=== PATIENT | female | born 1955 | race Caucasian/White ===

== ENCOUNTER 2018-02-28 08:43 | Emergency (ER) | payer MEDICARE, BC ==
[2018-02-28 08:59] VITALS: BP 134/78
--- NOTE | 2018-02-28 09:28 | EDM.PDOC ---
ED HPI GENERAL MEDICAL PROBLEM - General Chief Complaint: General Stated Complaint: FALL VIA NORTH Time Seen by Provider: 02/28/18 09:05 Source of Information: Reports: Patient, EMS History Limitations: Reports: No Limitations - History of Present Illness INITIAL COMMENTS - FREE TEXT/NARRATIVE: 63-year-old female who has become very weak over the past 72 hours, unable to even get in and out of bed. This morning she was unable to support her weight when she tried to roll out of bed and fell onto the floor. She was lying face down on the floor for 20 minutes when she called the ambulance. They found her diaphoretic but otherwise stable, afebrile, blood pressure was normal. In route the diaphoresis resolved. There was no outward evidence of any trauma or bruising. The patient has had a cold for the last couple of weeks, thought she was running some fevers on Wednesday but Wednesday was shopping without much difficulty. This has never happened to her before. Her symptoms are only weakness, she has no paresthesias, denies a headache, denies nausea or vomiting or shortness of breath. Her appetite is decreased over the last 2 days but she has no abdominal symptoms or nausea or vomiting. No dysuria. I asked her if she felt she could walk now if she tried, and she said "maybe with help". Onset: Gradual (Over the past several days) Severity: Moderate Associated Symptoms: Reports: Diaphoresis, Fever/Chills (Had a fever on Wednesday ), Loss of Appetite, Malaise, Weakness. 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: Musculoskeletal History: Reports: Fracture Other Musculoskeletal History: Left Hip Pain and Right Knee - Infectious Disease History Infectious Disease History: Reports: Chicken Pox - Past Surgical History GI Surgical History: Reports: Cholecystectomy Female Surgical History: Reports: Section Musculoskeletal Surgical History: Reports: Hip Replacement Social & Family History - Tobacco Use Smoking Status *Q: Former Smoker Years of Tobacco use: 15 Used Tobacco, but Quit: No - Caffeine Use Caffeine Use: Reports: None - Alcohol Use Days Per Week of Alcohol Use: 2 Number of Drinks Per Day: 3 Total Drinks Per Week: 6 - Recreational Drug Use Recreational Drug Use: No ED ROS GENERAL - Review of Systems Review Of Systems: See Below Constitutional: Reports: Fever (2 days ago, none currently), Malaise, Weakness, Decreased Appetite HEENT: Reports: Rhinitis (Ongoing head cold or sinus infection) Respiratory: Denies: Shortness of Breath, Cough Cardiovascular: Denies: Chest Pain Endocrine: Reports: Fatigue (Supposedly the patient has some type of "sleeping disorder".) GI/Abdominal: Reports: No Symptoms : Reports: No Symptoms Skin: Reports: Diaphoresis. Denies: Pallor Neurological: Reports: Weakness. Denies: Headache Psychiatric: Reports: No Symptoms ED EXAM, GENERAL - Physical Exam Exam: See Below Exam Limited By: No Limitations General Appearance: Alert, No Apparent Distress Eye Exam: Bilateral Eye: EOMI, Normal Inspection Head: Atraumatic, Normocephalic Neck: Supple Respiratory/Chest: No Respiratory Distress, Rales ( faint rales in the bases bilaterally, worse on the left with decreased breath sounds) Cardiovascular: Regular Rate, Rhythm, Tachycardia (Mild tachycardia is present) GI/Abdominal: Soft, Non-Tender Extremities: Other (She has symmetric weakness of the lower extremities, only able to hold her leg up against gravity for one second). No: Pedal Edema Psychiatric: Normal Affect, Normal Mood Skin Exam: Warm, Dry, Other (There is erythema, dermatitis present in the groin and buttock area.) Course - Vital Signs Last Recorded V/S: Last Vital Signs Temp 100.0 F 02/28/18 09:52 Pulse 105 H 02/28/18 09:52 Resp 33 H 02/28/18 09:01 BP 134/78 02/28/18 09:01 Pulse Ox 96 02/28/18 09:01 - Orders/Labs/Meds Orders: Active Orders 24 hr Category Date Time Status Chest 1V Frontal [CR] Stat Exams 02/28/18 10:50 Ordered CULTURE BLOOD [BC] Urgent Lab 02/28/18 11:19 Received CULTURE BLOOD [BC] Urgent Lab 02/28/18 11:44 Received CULTURE URINE [RM] Stat Lab 02/28/18 11:43 Received UA W/MICROSCOPIC [URIN] Urgent Lab 02/28/18 09:52 Ordered Blood Culture x2 Reflex Set [OM.PC] Urgent Oth 02/28/18 11:03 Ordered Labs: Laboratory Tests 02/28/18 02/28/18 02/28/18 Range/Units 09:30 09:30 09:52 WBC 14.4 H (4.5-11.0) K/uL RBC 4.30 (3.30-5.50) M/uL Hgb 13.2 (12.0-15.0) g/dL Hct 38.8 (36.0-48.0) % MCV 90 (80-98) fL MCH 31 (27-31) pg MCHC 34 (32-36) % Plt Count 178 (150-400) K/uL Add Manual Diff Yes Neutrophils % (Manual) 71 H (36-66) % Band Neutrophils % 18 H (5-11) % Lymphocytes % (Manual) 3 L (24-44) % Monocytes % (Manual) 7 H (2-6) % Eosinophils % (Manual) 1 L (2-4) % ESR 66 H (0-25) mm/hr Sodium 128 L (140-148) mmol/L Potassium 3.2 L (3.6-5.2) mmol/L Chloride 94 L (100-108) mmol/L Carbon Dioxide 20 L (21-32) mmol/L Anion Gap 17.2 H (5.0-14.0) mmol/L BUN 10 (7-18) mg/dL Creatinine 1.1 H (0.6-1.0) mg/dL Est Cr Clr Drug Dosing 49.58 mL/min Estimated GFR (MDRD) 50 L (>60) Glucose 141 H (74-106) mg/dL Calcium 8.9 (8.5-10.1) mg/dL Total Bilirubin 0.6 (0.2-1.0) mg/dL AST 104 H (15-37) U/L ALT 62 (12-78) U/L Alkaline Phosphatase 126 H (46-116) U/L Creatine Kinase 4599 H (26-192) U/L C-Reactive Protein 41.62 H (0.0-0.3) mg/dL Total Protein 6.9 (6.4-8.2) g/dL Albumin 2.7 L (3.4-5.0) g/dL Globulin 4.2 H (2.3-3.5) g/dL Albumin/Globulin Ratio 0.6 L (1.2-2.2) Urine Color Yellow Urine Appearance Cloudy Urine pH 5.0 (4.5-8.0) Ur Specific [place] 1.025 (1.008-1.030) Urine Protein 500 H (NEGATIVE) mg/dL Urine Glucose (UA) Normal (NEGATIVE) mg/dL Urine Ketones 50 H (NEGATIVE) mg/dL Urine Occult Blood Large (NEGATIVE) Urine Nitrite Negative (NEGATIVE) Urine Bilirubin Negative (NEGATIVE) Urine Urobilinogen Normal (NORMAL) mg/dL Ur Leukocyte Esterase Negative (NEGATIVE) Urine RBC 5-10 H (0-5) Urine WBC 5-10 H (0-5) Ur Epithelial Cells Few Amorphous Sediment Many Urine Bacteria Many Urine Mucus Few Urine Other See note Meds: Medications Discontinued Medications Generic Name Dose Route Start Last Admin Trade Name Freq PRN Reason Stop Dose Admin Sodium Chloride 1,000 mls @ 500 mls/hr 02/28/18 10:03 02/28/18 10:13 Normal Saline IV 02/28/18 12:02 500 mls/hr ONETIME ONE Administration Levofloxacin/Dextrose 750 mg/ 150 mls @ 100 mls/hr 02/28/18 11:04 02/28/18 11 :51 Premix IV 02/28/18 12:33 100 mls/hr ONETIME ONE Administration Piperacillin Sod/Tazobactam 50 mls @ 100 mls/hr 02/28/18 11:04 02/28/18 11:19 Sod 3.375 gm/ Sodium Chloride IV 02/28/18 11:33 100 mls/hr ONETIME ONE Administration - Re-Assessments/Exams Free Text/Narrative Re-Assessment/Exam: 02/28/18 09:[address] without contrast will be obtained as well as a CBC, CMP, CK, sedimentation rate and CRP. A neurologic consultation may be necessary. 02/28/18 11:06 CRP is very high at 42, CK is dangerously high at 4599. White count is 14.4. Catheter UA revealed bacteria but no WBCs or RBCs. Head CT was negative, chest x -ray shows an infiltrate on the left lower lobe. Blood cultures were then obtained and I discussed her case with the hospitalist, he felt transfer because of the complicated collection of symptoms and labs would need multispecialty treatment. After blood cultures, 3.375 g of Zosyn along with 750 mg of Levaquin were given. Departure - Departure Time of Disposition: 12:03 Disposition: DC/Tfer to Acute Hospital 02 Condition: Fair Clinical Impression: Non-traumatic rhabdomyolysis Pneumonia Qualifiers: Pneumonia type: due to unspecified organism Laterality: left Lung location: lower lobe of lung Qualified Code(s): J18.1 - Lobar pneumonia, unspecified organism - Discharge Information Referrals: PCP,None [Primary Care Provider] - Forms: ED Department Discharge Care Plan Goals: Patient is transferred to [facility] for multidisciplinary care for pneumonia and rhabdomyolysis. - My Orders Last 24 Hours: My Active Orders 02/28/18 09:52 UA W/MICROSCOPIC [URIN] Urgent 02/28/18 10:50 Chest 1V Frontal [CR] Stat 02/28/18 11:03 Blood Culture x2 Reflex Set [OM.PC] Urgent 02/28/18 11:19 CULTURE BLOOD [BC] Urgent 02/28/18 11:43 CULTURE URINE [RM] Stat 02/28/18 11:44 CULTURE BLOOD [BC] Urgent - Assessment/Plan Last 24 Hours: My Active Orders 02/28/18 09:52 UA W/MICROSCOPIC [URIN] Urgent 02/28/18 10:50 Chest 1V Frontal [CR] Stat 02/28/18 11:03 Blood Culture x2 Reflex Set [OM.PC] Urgent 02/28/18 11:19 CULTURE BLOOD [BC] Urgent 02/28/18 11:43 CULTURE URINE [RM] Stat 02/28/18 11:44 CULTURE BLOOD [BC] Urgent
--- NOTE | 2018-02-28 09:48 | CT ---
Head wo Cont HISTORY: weakness TECHNIQUE: Spiral noncontrast CT scan of the brain was obtained along with high-resolution bone windo w reconstructions. FINDINGS: No acute intracranial hemorrhage or infarct is identified. There is no mass lesion, mass effect, midl ine shift, or ventricular abnormality. No abnormal extra-axial fluid collections are seen. Visualized paranasal sinuses and mastoid air cells are clear. Bone windows show no evidence for skull fracture. IMPRESSION: No acute intracranial abnormality identified. Report was called to Dr. Garcia in the emergency department at 0945 hours.
[2018-02-28] MEDS ORDERED: Sodium Chloride 0.9% 1,000 ML IV ONE (10:03)
[2018-02-28] MEDS ORDERED: Levofloxacin/Dextrose 5%-Water 750 MG in Premix Bag 1 BAG IV ONE (11:04)
[2018-02-28] MEDS ORDERED: Piperacillin/Tazobactam 3.375 GM in Sodium Chloride 0.9% 50 ML IV ONE (11:04)
--- NOTE | 2018-02-28 18:08 | CR ---
Chest 1V Frontal HISTORY: cough FINDINGS: Portable chest, 1052 hours. There are infiltrates and consolidation left lower lobe silhouetting the left heart border. This may represent pneumonia considering the given clinical history. Remainder the chest is clear. Heart size is normal. Pulmonary vasculature is not engorged. No definite pleural fluid is seen. Bony structures are osteopenic. IMPRESSION: Probable left lower lobe pneumonia. Recommend clinical correlation and follow-up.
== END 2018-02-28 12:02 ==
LOC: JP.ED 08:43
DX: J18.9 Pneumonia, unspecified organism (principal); M62.82 Rhabdomyolysis; W06.XXXA Fall from bed, initial encounter; L53.9 Erythematous condition, unspecified; L30.9 Dermatitis, unspecified; R00.0 Tachycardia, unspecified; Z88.8 Allergy status to other drugs, medicaments and biological substances; Z88.2 Allergy status to sulfonamides; Z79.899 Other long term (current) drug therapy; Z87.891 Personal history of nicotine dependence
CPT/HCPCS: 36415; 70450; 71045; 80053; 81001; 82550; 85025; 85651; 86140; 87040; 87086; 99285; J1956; J2543; J7040; J7050

== ENCOUNTER 2021-01-16 09:22 | Inpatient (IN) | payer MEDICARE, BC ==
--- NOTE | 2021-01-16 09:50 | EDM.PDOC ---
ED HPI GENERAL MEDICAL PROBLEM - General Chief Complaint: Respiratory Problem Stated Complaint: MEDICAL VIA RHODES - TROUBLE BREATHING Time Seen by Provider: 01/16/21 09:30 Source of Information: Reports: Patient, EMS History Limitations: Reports: No Limitations - History of Present Illness INITIAL COMMENTS - FREE TEXT/NARRATIVE: 65-year-old female who has been ill for 11 days, but over the past several days seems to have worsened, increased shortness of breath especially with activity and coughing. Denies any fevers or chills, denies any headache, denies any pain. She is very fatigued. She quit smoking in 2012. She lives alone but has been out in public over the past few months to get her prescriptions and go to the store. She has not been exposed to Covid that she knows of, or any other infections. Denies nausea or vomiting. Onset: Gradual Duration: Day(s): (Symptoms for 11 days) Improves with: Reports: None Worsens with: Reports: Other (Activity causes increased shortness of breath) - Related Data Allergies Allergy/AdvReac Type Severity Reaction Status Date / Time dexbrompheniramine Allergy Swollen Verified 01/16/21 09:45 Tongue Sulfa (Sulfonamide Allergy Swollen Verified 01/16/21 09:45 Antibiotics) Tongue Home Meds: Home Meds estradioL [Estradiol] 1 mg PO DAILY 02/28/18 [History] medroxyPROGESTERone [Provera] 2.5 mg PO DAILY 02/28/18 [History] Aspirin [Halfprin] 81 mg PO DAILY 06/06/18 [History] Lutein/Minerals/Vit A,C & E [Ocuvite] 1 tab PO DAILY 06/06/18 [History] traZODone HCl [Trazodone HCl] 100 mg PO BEDTIME 06/06/18 [History] Alendronate Sodium [Fosamax] 70 mg PO WEEKLY 12/05/19 [History] Calcium Carbonate/Vitamin D3 [Calcium 600 + Vit D Tablet] 2 tab PO DAILY 12/05/19 [History] Levothyroxine 50 mcg PO ACBREAKFAST 08/20/20 [History] Rosuvastatin [Crestor] 10 mg PO DAILY 08/20/20 [History] Oxybutynin 5 mg PO BID 10/17/20 [History] Citalopram [Citalopram HBr] 40 mg PO DAILY 01/16/21 [History] Past Medical History HEENT History: Reports: Impaired Vision Cardiovascular History: Reports: None Respiratory History: Reports: None Gastrointestinal History: Reports: None 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 left knee pain Neurological History: Reports: None Psychiatric History: Reports: None Endocrine/Metabolic History: Reports: None Hematologic History: Reports: None Immunologic History: Reports: None Oncologic (Cancer) History: Reports: None Dermatologic History: Reports: None - Infectious Disease History Infectious Disease History: Reports: Chicken Pox - Past Surgical History GI Surgical History: Reports: Cholecystectomy Female Surgical History: Reports: Section Musculoskeletal Surgical History: Reports: Hip Replacement Other Musculoskeletal Surgeries/Procedures:: wrist surgery, broken ribs Social & Family History - Tobacco Use Tobacco Use Status *Q: Former Tobacco User Used Tobacco, but Quit: Yes Month/Year Tobacco Last Used: 2012 - Caffeine Use Caffeine Use: Reports: None - Recreational Drug Use Recreational Drug Use: No ED ROS GENERAL - Review of Systems Review Of Systems: See Below Constitutional: Reports: Malaise, Decreased Appetite. Denies: Fever, Chills HEENT: Denies: Throat Pain Respiratory: Reports: Shortness of Breath, Cough. Denies: Sputum Cardiovascular: Denies: Chest Pain, Palpitations Endocrine: Reports: Fatigue GI/Abdominal: Denies: Nausea, Vomiting : Reports: No Symptoms Skin: Reports: No Symptoms Neurological: Reports: Dizziness, Weakness. Denies: Headache Psychiatric: Reports: No Symptoms ED EXAM, GENERAL - Physical Exam Exam: See Below Exam Limited By: No Limitations General Appearance: Alert, No Apparent Distress, Other (Patient appears tired and ill but in no distress) Eye Exam: Bilateral Eye: Normal Inspection Head: Atraumatic Respiratory/Chest: Respiratory Distress (Mild increased respiratory effort), Other (Bibasilar crackles are heard). No: Wheezing Cardiovascular: Regular Rate, Rhythm, No Rub. No: Extra Beats GI/Abdominal: Soft, Non-Tender Extremities: Normal Inspection. No: Pedal Edema Neurological: Alert, Oriented Psychiatric: Normal Affect, Normal Mood Skin Exam: Warm, Dry Course - Vital Signs Last Recorded V/S: Last Vital Signs Temp 98.5 F 01/16/21 09:39 Pulse 74 01/16/21 11:07 Resp 30 H 01/16/21 11:07 BP 134/77 01/16/21 11:07 Pulse Ox 93 L 01/16/21 11:07 - Orders/Labs/Meds Orders: Active Orders 24 hr Category Date Time Status HEPATIC FUNCTION PANEL,HFP [CHEM] DAILY Lab 01/17/21 10:45 Ordered HEPATIC FUNCTION PANEL,HFP [CHEM] DAILY Lab 01/18/21 10:45 Ordered HEPATIC FUNCTION PANEL,[facility] [CHEM] DAILY Lab 01/19/21 10:45 Ordered HEPATIC FUNCTION PANEL,[facility] [CHEM] DAILY Lab 01/20/21 10:45 Ordered Remdesivir 100 mg Med 01/17/21 11:00 Active Sodium Chloride 0.9% [Normal Saline] 100 ml IV Q24H Remdesivir 200 mg Med 01/16/21 11:00 Active Sodium Chloride 0.9% [Normal Saline] 250 ml IV ONETIME dexAMETHasone [Decadron] Med 01/16/21 11:00 Active 6 mg IVPUSH Q24H Medication Orders Dexamethasone (Decadron) 6 mg IVPUSH Q24H JULITO Remdesivir 200 mg/ Sodium (Chloride) 250 mls @ 250 mls/hr IV ONETIME ONE Stop: 01/16/21 11:59 Remdesivir 100 mg/ Sodium (Chloride) 100 mls @ 100 mls/hr IV Q24H JULITO Stop: 01/20/21 11:59 Labs: Laboratory Tests 01/16/21 01/16/21 01/16/21 Range/Units 09:47 09:47 09:47 WBC 9.2 (4.5-11.0) K/uL RBC 4.77 (3.30-5.50) M/uL Hgb 14.1 D (12.0-15.0) g/dL Hct 42.0 (36.0-48.0) % MCV 88 (80-98) fL MCH 30 (27-31) pg MCHC 34 (32-36) % Plt Count 280 (150-400) K/uL Neut % (Auto) 84 H (36-66) % Lymph % (Auto) 8 L (24-44) % [place]re[place] % (Auto) 8 H (2-6) % Eos % (Auto) 0 L (2-4) % Baso % (Auto) 0 (0-1) % D-Dimer, Quantitative (0.0-500.0) ng/mL Sodium 134 L (140-148) mmol/L Potassium 3.4 L (3.6-5.2) mmol/L Chloride 99 L (100-108) mmol/L Carbon Dioxide 22 (21-32) mmol/L Anion Gap 16.4 H (5.0-14.0) mmol/L BUN 8 (7-18) mg/dL Creatinine 0.9 (0.6-1.0) mg/dL Est Cr Clr Drug Dosing 58.99 mL/min Estimated GFR (MDRD) > 60 (>60) Glucose 134 H (74-106) mg/dL Calcium 8.8 (8.5-10.1) mg/dL Total Bilirubin 0.4 (0.2-1.0) mg/dL Direct Bilirubin (0.0-0.2) mg/dL Indirect Bilirubin AST 88 H (15-37) U/L ALT 62 (12-78) U/L Alkaline Phosphatase 174 H (46-116) U/L Troponin I < 0.017 (0.000-0.056) ng/mL C-Reactive Protein 12.87 H (0.0-0.3) mg/dL Total Protein 7.4 (6.4-8.2) g/dL Albumin 2.8 L (3.4-5.0) g/dL Globulin 4.6 H (2.3-3.5) g/dL Albumin/Globulin Ratio 0.6 L (1.2-2.2) Procalcitonin ng/mL Influenza Type A RNA Negative (NEGATIVE) RSV RNA (INAAT) Negative (NEGATIVE) Influenza Type B RNA Negative (NEGATIVE) SARS-CoV-2 RNA (ANA) Positive H (NEGATIVE) 01/16/21 01/16/21 01/16/21 Range/Units 10:33 10:34 10:34 WBC (4.5-11.0) K/uL RBC (3.30-5.50) M/uL Hgb (12.0-15.0) g/dL Hct (36.0-48.0) % MCV (80-98) fL MCH (27-31) pg MCHC (32-36) % Plt Count (150-400) K/uL Neut % (Auto) (36-66) % Lymph % (Auto) (24-44) % Humphreys % (Auto) (2-6) % Eos % (Auto) (2-4) % Baso % (Auto) (0-1) % D-Dimer, Quantitative 992.78 H (0.0-500.0) ng/mL Sodium (140-148) mmol/L Potassium (3.6-5.2) mmol/L Chloride (100-108) mmol/L Carbon Dioxide (21-32) mmol/L Anion Gap (5.0-14.0) mmol/L BUN (7-18) mg/dL Creatinine (0.6-1.0) mg/dL Est Cr Clr Drug Dosing mL/min Estimated GFR (MDRD) (>60) Glucose (74-106) mg/dL Calcium (8.5-10.1) mg/dL Total Bilirubin 0.4 (0.2-1.0) mg/dL Direct Bilirubin 0.16 (0.0-0.2) mg/dL Indirect Bilirubin 0.24 AST 88 H (15-37) U/L ALT 62 (12-78) U/L Alkaline Phosphatase 172 H (46-116) U/L Troponin I (0.000-0.056) ng/mL C-Reactive Protein (0.0-0.3) mg/dL Total Protein 7.6 (6.4-8.2) g/dL Albumin 2.8 L (3.4-5.0) g/dL Globulin 4.8 H (2.3-3.5) g/dL Albumin/Globulin Ratio 0.6 L (1.2-2.2) Procalcitonin < 0.05 ng/mL Influenza Type A RNA (NEGATIVE) RSV RNA (INAAT) (NEGATIVE) Influenza Type B RNA (NEGATIVE) SARS-CoV-2 RNA (ANA) (NEGATIVE) Meds: Medications Generic Name Dose Route Start Last Admin Trade Name Freq PRN Reason Stop Dose Admin Dexamethasone 6 mg 01/16/21 11:00 Decadron IVPUSH Q24H JULITO Remdesivir 200 mg/ Sodium 250 mls @ 250 mls/hr 01/16/21 11:00 Chloride IV 01/16/21 11:59 ONETIME ONE Remdesivir 100 mg/ Sodium 100 mls @ 100 mls/hr 01/17/21 11:00 Chloride IV 01/20/21 11:59 Q24H [facility], 1928–1983 - Re-Assessments/Exams Free Text/Narrative Re-Assessment/Exam: 01/16/21 10:02 Covid precautions were taken, and a 4 Plex viral panel was obtained. IV was started and CBC, CMP, CRP and troponin were obtained. 1 view chest x-ray taken. Patient is in the low to mid 80s O2 saturations without oxygen, but in the mid 90s with 2 liters nasal cannula oxygen and much more comfortable. 01/16/21 11:53 White count is normal, CRP is around 13. Chest x-ray shows diffuse basilar infiltrates Covid is positive. Discussed with Dr. Sigifredo Chapman of the hospitalist service, he kindly accepted her for admission. Departure - Departure Time of Disposition: 11:24 Disposition: Admitted As Inpatient 64 Clinical Impression: Pneumonia due to 2019 novel coronavirus - Discharge Information Sepsis Event Note (ED) - Evaluation Sepsis Screening Result: No Definite Risk - Focused Exam Vital Signs: Vital Signs Temp Pulse Resp BP Pulse Ox 01/16/21 09:39 98.5 F 89 32 H 135/73 93 L
[2021-01-16 10:27] LABS: CORONAVIRUS COVID-19 NAA POSITIVE (NEGATIVE)
--- NOTE | 2021-01-16 10:41 | PCM.HP.2 ---
H&P History of Present Illness - General Date of Service: 01/16/21 Admit Problem/Dx: Admission Diagnosis/Problem Admission Diagnosis/Problem Hypoxia Source of Information: Patient, Provider, RN Notes Reviewed History Limitations: Reports: No Limitations - History of Present Illness Initial Comments - Free Text/Narative: Ms. Mcguire is a 65-year-old woman who was admitted through the emergency department with progressive weakness, shortness of breath, hypoxia, secondary to COVID-19. She has had symptoms of infection for the past 11 days including progressive weakness, anorexia, and progressive shortness of breath. Shortness of breath has been significantly worse over the past few days and was severe this morning. She was brought into the emergency department via EMS. On arrival in the emergency department was noted to be hypoxic with saturations in the mid 80s on room air and an increased respiratory rate. COVID-19 testing is positive and chest x-ray does show faint infiltrates. - Related Data Allergies/Adverse Reactions: Allergies Allergy/AdvReac Type Severity Reaction Status Date / Time dexbrompheniramine Allergy Swollen Verified 01/16/21 09:45 Tongue Sulfa (Sulfonamide Allergy Swollen Verified 01/16/21 09:45 Antibiotics) Tongue Home Medications: Home Meds estradioL [Estradiol] 1 mg PO DAILY 02/28/18 [History] medroxyPROGESTERone [Provera] 2.5 mg PO DAILY 02/28/18 [History] Aspirin [Halfprin] 81 mg PO DAILY 06/06/18 [History] Lutein/Minerals/Vit A,C & E [Ocuvite] 1 tab PO DAILY 06/06/18 [History] traZODone HCl [Trazodone HCl] 100 mg PO BEDTIME 06/06/18 [History] Alendronate Sodium [Fosamax] 70 mg PO WEEKLY 12/05/19 [History] Calcium Carbonate/Vitamin D3 [Calcium 600 + Vit D Tablet] 2 tab PO DAILY 12/05/19 [History] Levothyroxine 50 mcg PO ACBREAKFAST 08/20/20 [History] Rosuvastatin [Crestor] 10 mg PO DAILY 08/20/20 [History] Oxybutynin 5 mg PO BID 10/17/20 [History] Citalopram [Citalopram HBr] 40 mg PO DAILY 01/16/21 [History] Past Medical History HEENT History: Reports: Impaired Vision Cardiovascular History: Reports: None Respiratory History: Reports: None Gastrointestinal History: Reports: None Genitourinary History: Reports: None MENTAL TELEPATHIST History: Reports: Musculoskeletal History: Reports: Fracture Other Musculoskeletal History: Left Hip Pain and Right Knee. left knee pain Neurological History: Reports: None Psychiatric History: Reports: None Endocrine/Metabolic History: Reports: None Hematologic History: Reports: None Immunologic History: Reports: None Oncologic (Cancer) History: Reports: None Dermatologic History: Reports: None - Infectious Disease History Infectious Disease History: Reports: Chicken Pox - Past Surgical History GI Surgical History: Reports: Cholecystectomy Female Surgical History: Reports: Section Musculoskeletal Surgical History: Reports: Hip Replacement Other Musculoskeletal Surgeries/Procedures:: wrist surgery, broken ribs Social & Family History - Tobacco Use Tobacco Use Status *Q: Former Tobacco User Used Tobacco, but Quit: Yes Month/Year Tobacco Last Used: 2012 - Caffeine Use Caffeine Use: Reports: None - Recreational Drug Use Recreational Drug Use: No H&P Review of Systems - Review of Systems: Review Of Systems: See Below General: Reports: Malaise, Weakness, Fatigue, Decreased Appetite, Weight Loss. Denies: Fever, Chills HEENT: Reports: No Symptoms Pulmonary: Reports: Shortness of Breath, Cough. Denies: Wheezing, Pleuritic Chest Pain, Sputum, Hemoptysis Cardiovascular: Reports: Dyspnea on Exertion. Denies: Chest Pain, Palpitations, Orthopnea, PND, Edema, Lightheadedness Gastrointestinal: Reports: No Symptoms Genitourinary: Reports: No Symptoms Musculoskeletal: Reports: No Symptoms Skin: Reports: No Symptoms Psychiatric: Reports: No Symptoms Neurological: Reports: No Symptoms Hematologic/Lymphatic: Reports: No Symptoms Immunologic: Reports: No Symptoms Exam - Exam Exam: See Below - Vital Signs Vital Signs: Last Vital Signs Temp 98.5 F 01/16/21 09:39 Pulse 89 01/16/21 09:39 Resp 32 H 01/16/21 09:39 BP 135/73 01/16/21 09:39 Pulse Ox 93 L 01/16/21 09:39 Weight: 203 lb - Exam Quality Assessment: Supplemental Oxygen, DVT Prophylaxis General: Alert, Oriented, Cooperative, Moderate Distress HEENT: Conjunctiva Clear, Hearing Intact, Normal Nasal Septum, Posterior Pharynx Clear, Pupils Equal. No: Mucosa Moist & [place] Neck: Supple, Trachea Midline, +2 Carotid Pulse wo Bruit Lungs: Decreased Breath Sounds, Rales. No: Crackles, Rhonchi, Wheezing Cardiovascular: Regular Rate, Regular Rhythm, Normal S1, Normal S2. No: Systolic Murmur, Diastolic Murmur GI/Abdominal Exam: Soft, Non-Tender, No Organomegaly, No Distention Back Exam: Normal Inspection, Full Range of Motion Extremities: Normal Inspection, Non-Tender, No Pedal Edema Skin: Warm, Dry, Intact Neurological: Cranial Nerves Intact, Strength Equal Bilateral, Normal Speech, Normal Tone, Sensation Intact. No: Focal Deficit Neuro Extensive - Mental Status: Alert, Oriented x3, Normal Mood/Affect, Normal Cognition, Memory Intact - Patient Data Lab Results Last 24 hrs: Laboratory Results - last 24 hr 01/16/21 01/16/21 01/16/21 Range/Units 09:47 09:47 09:47 WBC 9.2 (4.5-11.0) K/uL RBC 4.77 (3.30-5.50) M/uL Hgb 14.1 D (12.0-15.0) g/dL Hct 42.0 (36.0-48.0) % MCV 88 (80-98) fL MCH 30 (27-31) pg MCHC 34 (32-36) % Plt Count 280 (150-400) K/uL Neut % (Auto) 84 H (36-66) % Lymph % (Auto) 8 L (24-44) % [place] % (Auto) 8 H (2-6) % Eos % (Auto) 0 L (2-4) % Baso % (Auto) 0 (0-1) % Sodium 134 L (140-148) mmol/L Potassium 3.4 L (3.6-5.2) mmol/L Chloride 99 L (100-108) mmol/L Carbon Dioxide 22 (21-32) mmol/L Anion Gap 16.4 H (5.0-14.0) mmol/L BUN 8 (7-18) mg/dL Creatinine 0.9 (0.6-1.0) mg/dL Est Cr Clr Drug Dosing 58.99 mL/min Estimated GFR (MDRD) > 60 (>60) Glucose 134 H (74-106) mg/dL Calcium 8.8 (8.5-10.1) mg/dL Total Bilirubin 0.4 (0.2-1.0) mg/dL AST 88 H (15-37) U/L ALT 62 (12-78) U/L Alkaline Phosphatase 174 H (46-116) U/L Troponin I < 0.017 (0.000-0.056) ng/mL C-Reactive Protein 12.87 H (0.0-0.3) mg/dL Total Protein 7.4 (6.4-8.2) g/dL Albumin 2.8 L (3.4-5.0) g/dL Globulin 4.6 H (2.3-3.5) g/dL Albumin/Globulin Ratio 0.6 L (1.2-2.2) Influenza Type A RNA Negative (NEGATIVE) RSV RNA (INAAT) Negative (NEGATIVE) Influenza Type B RNA Negative (NEGATIVE) SARS-CoV-2 RNA (ANA) Positive H (NEGATIVE) Result Diagrams: 01/16/21 09:47 01/16/21 09:47 Sepsis Event Note - Evaluation Sepsis Screening Result: No Definite Risk - Focused Exam Vital Signs: Vital Signs Temp Pulse Resp BP Pulse Ox 01/16/21 09:39 98.5 F 89 32 H 135/73 93 L *Q Meaningful Use (ADM) - VTE Risk Assess *Q Each Risk Factor Represents 1 Point: Serious lung disease including pneumonia Total Score 1 Point Risk Factors: 1 Each Risk Factor Represents 2 Points: Age 60 - 74 Years Total Score 2 Point Risk Factors: 2 Each Risk Factor Represents 3 Points: None Total Score 3 Point Risk Factors: 0 Each Risk Factor Represents 5 Points: None Total Score 5 Point Risk Factors: 0 Venous Thromboembolism Risk Factor Score *Q: 3 Problem List Initiated/Reviewed/Updated: Yes Orders Last 24hrs: Active Orders 24 hr Category Date Time Status Patient Status Manage Transfer [TRANSFER] Routine ADT 01/16/21 10:35 Ordered Chest 1V Frontal [CR] Stat Exams 01/16/21 09:47 Taken D Dimer [D-DIMER QUANTITATIVE] [COAG] Stat Lab 01/16/21 10:34 Ordered HEPATIC FUNCTION PANEL,HFP [CHEM] DAILY Lab 01/17/21 10:45 Ordered HEPATIC FUNCTION PANEL,HFP [CHEM] DAILY Lab 01/18/21 10:45 Ordered HEPATIC FUNCTION PANEL,HFP [CHEM] DAILY Lab 01/19/21 10:45 Ordered HEPATIC FUNCTION PANEL,HFP [CHEM] DAILY Lab 01/20/21 10:45 Ordered HEPATIC FUNCTION PANEL,HFP [CHEM] Stat Lab 01/16/21 10:33 Ordered PROCALCITONIN [CHEM] Stat Lab 01/16/21 10:34 Ordered Remdesivir 100 mg Med 01/17/21 11:00 Active Sodium Chloride 0.9% [Normal Saline] 100 ml IV Q24H Remdesivir 200 mg Med 01/16/21 11:00 Active Sodium Chloride 0.9% [Normal Saline] 250 ml IV ONETIME dexAMETHasone [Decadron] Med 01/16/21 10:45 Ordered 6 mg IVPUSH Q24H Resuscitation Status Routine Resus Stat 01/16/21 10:37 Ordered Medication Orders Dexamethasone (Decadron) 6 mg IVPUSH Q24H JULITO Remdesivir 200 mg/ Sodium (Chloride) 250 mls @ 250 mls/hr IV ONETIME ONE Stop: 01/16/21 11:59 Remdesivir 100 mg/ Sodium (Chloride) 100 mls @ 100 mls/hr IV Q24H JULITO Stop: 01/20/21 11:59 Assessment/Plan Comment:: ASSESSMENT AND PLAN COVID-19 INFECTION-complicated by pulmonary infiltrates and hypoxia. Symptoms have been present for approximately 11 days. -Supportive care -Prone ventilation if possible -Supplemental oxygen as needed -Limit fluids -Remdesivir 200 mg IV today and then 100 mg IV daily for 4 days -Decadron 6 mg IV daily ACUTE HYPOXIC RESPIRATORY FAILURE-secondary to COVID-19 infection -Management as above MAINTENANCE ISSUES -DVT prophylaxis; Lovenox 40 mg subcu daily -GI prophylaxis; not indicated -Bowens catheter; not indicated -Nutrition; regular diet -Nicotine dependence; not required CODE STATUS-FULL CODE ADMISSION STATUS-patient will be admitted to inpatient status, expect at least a 2 night hospital stay for evaluation and management of problems as outlined above. At the time of this admission I do not reasonably expected evaluation and management of this problem will require more than a 96 hour hospital stay. DISPOSITION-anticipate discharge to home after the hospital stay. - Mortality Measure Prognosis:: Good
[2021-01-16] MEDS ORDERED: REMDESIVIR 200 MG in Sodium Chloride 0.9% 250 ML IV ONE (11:00)
--- NOTE | 2021-01-16 11:03 | CR ---
CHEST: Portable 01/16/2021 at 10:11 AM CLINICAL HISTORY:Dyspnea COMPARISON:2018 FINDINGS: There are diffuse bilateral infiltrates in both lower lobes. There may be a minimal left effusion versus chronic pleural thickening. Impression: Bilateral lower lobe infiltrates suggestive a pneumonitis
[2021-01-16] MEDS ORDERED: Ondansetron 4 MG/2 ML SDV IV PRN (11:53)
[2021-01-16] MEDS ORDERED: Sodium Chloride 0.9% 10 ML Syringe FLUSH PRN (11:53)
[2021-01-16] MEDS: Enoxaparin 40 MG/0.4 ML Syringe SUBCUT SCH (12:57)
[2021-01-16] MEDS: Dexamethasone 4 MG/ML SDV IVPUSH SCH (14:21)
--- NOTE | 2021-01-16 14:42 | CR ---
Knee 3V Bi CLINICAL HISTORY: Bilateral knee pain FINDINGS: There is moderate joint space narrowing in the left lateral compartment. There is some sclerosis in the lateral femoral condyle. There is periarticular and patellar spurring. There is medial joint space narrowing in the right knee. There is patellar spurring. IMPRESSION: [id number] osteoarthritic change medial compartment right knee. Moderate to severe osteoarthritic change lateral compartment left knee
[2021-01-16] MEDS: Acetaminophen 325 MG Tab PO PRN (15:40)
[2021-01-16] MEDS: traZODone 50 MG Tab PO SCH (21:27)
[2021-01-16] MEDS: Oxybutynin 5 MG Tab PO SCH (21:27)
[2021-01-17] MEDS: Levothyroxine 50 MCG Tab PO SCH (07:48)
[2021-01-17] MEDS: Estradiol 0.5 MG Tab PO SCH (08:06)
[2021-01-17] MEDS: Rosuvastatin 10 MG Tab PO SCH (08:07)
[2021-01-17] MEDS: Aspirin 81 MG Tab.EC PO SCH (08:07)
[2021-01-17] MEDS: Citalopram 20 MG Tab PO SCH (08:07)
[2021-01-17] MEDS: Oxybutynin 5 MG Tab PO SCH ×2 (08:10→21:49)
[2021-01-17] MEDS: Enoxaparin 40 MG/0.4 ML Syringe SUBCUT SCH (08:12)
[2021-01-17] MEDS ORDERED: Potassium Chloride 20 MEQ Tab.ER PO ONE (08:15)
--- NOTE | 2021-01-17 09:57 | PCM.PN ---
- General Info Date of Service: 01/17/21 Subjective Update: Ms. Mcguire has remained fairly stable since admission yesterday. Oxygen use has remained fairly stable at 3-1/2 L/min via nasal cannula. She does desaturate significantly with any type of activity and does have a rather prolonged recovery phase. Vital signs have been stable and she has remained afebrile. Functional Status: Reports: Urinating. Denies: Tolerating Diet - Review of Systems General: Reports: Weakness, Fatigue. Denies: Fever, Chills Pulmonary: Reports: Shortness of Breath, Cough. Denies: Pleuritic Chest Pain, Sputum, Hemoptysis, Wheezing Cardiovascular: Reports: Dyspnea on Exertion. Denies: Chest Pain, Palpitations, Orthopnea, PND, Edema, Lightheadedness Gastrointestinal: Reports: No Symptoms - Patient Data Vitals - Most Recent: Last Vital Signs Temp 98.4 F 01/17/21 08:00 Pulse 79 01/17/21 08:00 Resp 22 H 01/17/21 08:00 BP 142/67 H 01/17/21 08:00 Pulse Ox 91 L 01/17/21 08:00 Weight - Most Recent: 206 lb 8 oz I&O - Last 24 Hours: Intake & Output 01/16/21 01/17/21 01/17/21 22:59 06:59 14:59 Intake Total 600 300 Output Total 425 200 150 Balance 175 100 -150 Lab Results Last 24 Hours: Laboratory Results - last 24 hr 01/16/21 01/16/21 01/16/21 Range/Units 09:47 09:47 09:47 WBC 9.2 (4.5-11.0) K/uL RBC 4.77 (3.30-5.50) M/uL Hgb 14.1 D (12.0-15.0) g/dL Hct 42.0 (36.0-48.0) % MCV 88 (80-98) fL MCH 30 (27-31) pg MCHC 34 (32-36) % Plt Count 280 (150-400) K/uL Neut % (Auto) 84 H (36-66) % Lymph % (Auto) 8 L (24-44) % Waller % (Auto) 8 H (2-6) % Eos % (Auto) 0 L (2-4) % Baso % (Auto) 0 (0-1) % D-Dimer, Quantitative (0.0-500.0) ng/mL Sodium 134 L (140-148) mmol/L Potassium 3.4 L (3.6-5.2) mmol/L Chloride 99 L (100-108) mmol/L Carbon Dioxide 22 (21-32) mmol/L Anion Gap 16.4 H (5.0-14.0) mmol/L BUN 8 (7-18) mg/dL Creatinine 0.9 (0.6-1.0) mg/dL Est Cr Clr Drug Dosing 58.99 mL/min Estimated GFR (MDRD) > 60 (>60) Glucose 134 H (74-106) mg/dL Calcium 8.8 (8.5-10.1) mg/dL Total Bilirubin 0.4 (0.2-1.0) mg/dL Direct Bilirubin (0.0-0.2) mg/dL Indirect Bilirubin AST 88 H (15-37) U/L ALT 62 (12-78) U/L Alkaline Phosphatase 174 H (46-116) U/L Troponin I < 0.017 (0.000-0.056) ng/mL C-Reactive Protein 12.87 H (0.0-0.3) mg/dL Total Protein 7.4 (6.4-8.2) g/dL Albumin 2.8 L (3.4-5.0) g/dL Globulin 4.6 H (2.3-3.5) g/dL Albumin/Globulin Ratio 0.6 L (1.2-2.2) Procalcitonin ng/mL Influenza Type A RNA Negative (NEGATIVE) RSV RNA (INAAT) Negative (NEGATIVE) Influenza Type B RNA Negative (NEGATIVE) SARS-CoV-2 RNA (ANA) Positive H (NEGATIVE) 01/16/21 01/16/21 01/16/21 Range/Units 10:33 10:34 10:34 WBC (4.5-11.0) K/uL RBC (3.30-5.50) M/uL Hgb (12.0-15.0) g/dL Hct (36.0-48.0) % MCV (80-98) fL MCH (27-31) pg MCHC (32-36) % Plt Count (150-400) K/uL Neut % (Auto) (36-66) % Lymph % (Auto) (24-44) % Waller % (Auto) (2-6) % Eos % (Auto) (2-4) % Baso % (Auto) (0-1) % D-Dimer, Quantitative 992.78 H (0.0-500.0) ng/mL Sodium (140-148) mmol/L Potassium (3.6-5.2) mmol/L Chloride (100-108) mmol/L Carbon Dioxide (21-32) mmol/L Anion Gap (5.0-14.0) mmol/L BUN (7-18) mg/dL Creatinine (0.6-1.0) mg/dL Est Cr Clr Drug Dosing mL/min Estimated GFR (MDRD) (>60) Glucose (74-106) mg/dL Calcium (8.5-10.1) mg/dL Total Bilirubin 0.4 (0.2-1.0) mg/dL Direct Bilirubin 0.16 (0.0-0.2) mg/dL Indirect Bilirubin 0.24 AST 88 H (15-37) U/L ALT 62 (12-78) U/L Alkaline Phosphatase 172 H (46-116) U/L Troponin I (0.000-0.056) ng/mL C-Reactive Protein (0.0-0.3) mg/dL Total Protein 7.6 (6.4-8.2) g/dL Albumin 2.8 L (3.4-5.0) g/dL Globulin 4.8 H (2.3-3.5) g/dL Albumin/Globulin Ratio 0.6 L (1.2-2.2) Procalcitonin < 0.05 ng/mL Influenza Type A RNA (NEGATIVE) RSV RNA (INAAT) (NEGATIVE) Influenza Type B RNA (NEGATIVE) SARS-CoV-2 RNA (ANA) (NEGATIVE) 01/17/21 01/17/21 01/17/21 Range/Units 05:43 05:43 05:43 WBC 5.1 (4.5-11.0) K/uL RBC 4.43 (3.30-5.50) M/uL Hgb 12.8 (12.0-15.0) g/dL Hct 39.3 (36.0-48.0) % MCV 89 (80-98) fL MCH 29 (27-31) pg MCHC 33 (32-36) % Plt Count 278 (150-400) K/uL Neut % (Auto) 76 H (36-66) % Lymph % (Auto) 12 L (24-44) % Waller % (Auto) 10 H (2-6) % Eos % (Auto) 0 L (2-4) % Baso % (Auto) 1 (0-1) % D-Dimer, Quantitative 790.16 H (0.0-500.0) ng/mL Sodium 138 L (140-148) mmol/L Potassium 3.5 L (3.6-5.2) mmol/L Chloride 103 (100-108) mmol/L Carbon Dioxide 24 (21-32) mmol/L Anion Gap 14.5 H (5.0-14.0) mmol/L BUN 11 (7-18) mg/dL Creatinine 0.8 (0.6-1.0) mg/dL Est Cr Clr Drug Dosing 66.36 mL/min Estimated GFR (MDRD) > 60 (>60) Glucose 128 H (74-106) mg/dL Calcium 8.4 L (8.5-10.1) mg/dL Total Bilirubin 0.3 (0.2-1.0) mg/dL Direct Bilirubin (0.0-0.2) mg/dL Indirect Bilirubin AST 73 H (15-37) U/L ALT 61 (12-78) U/L Alkaline Phosphatase 168 H (46-116) U/L Troponin I (0.000-0.056) ng/mL C-Reactive Protein 12.67 H (0.0-0.3) mg/dL Total Protein 6.8 (6.4-8.2) g/dL Albumin 2.5 L (3.4-5.0) g/dL Globulin 4.3 H (2.3-3.5) g/dL Albumin/Globulin Ratio 0.6 L (1.2-2.2) Procalcitonin ng/mL Influenza Type A RNA (NEGATIVE) RSV RNA (INAAT) (NEGATIVE) Influenza Type B RNA (NEGATIVE) SARS-CoV-2 RNA (ANA) (NEGATIVE) Med Orders - Current: Current Medications Acetaminophen (Tylenol) 650 mg PO Q4H PRN PRN Reason: Pain (Mild 1-3)/fever Last Admin: 01/16/21 15:40 Dose: 650 mg Documented by: Alendronate Sodium (Fosamax) 70 mg PO Zaragoza@0700 [facility] Aspirin (Halfprin) 81 mg PO DAILY [facility] Last Admin: 01/17/21 08:07 Dose: 81 mg Documented by: Citalopram Hydrobromide (Celexa) 40 mg PO DAILY [facility] Last Admin: 01/17/21 08:07 Dose: 40 mg Documented by: Dexamethasone (Decadron) 6 mg IVPUSH Q24H [facility] Last Admin: 01/16/21 14:21 Dose: 6 mg Documented by: Enoxaparin Sodium (Lovenox) 40 mg SUBCUT DAILY [facility] Last Admin: 01/17/21 08:12 Dose: 40 mg Documented by: Estradiol (Estradiol) 1 mg PO DAILY [facility] Last Admin: 01/17/21 08:06 Dose: 1 mg Documented by: Remdesivir 100 mg/ Sodium (Chloride) 100 mls @ 100 mls/hr IV Q24H [facility] Stop: 01/20/21 11:59 Levothyroxine Sodium (Synthroid) 50 mcg PO ACBREAKFAST [facility] Last Admin: 01/17/21 07:48 Dose: 50 mcg Documented by: Medroxyprogesterone Acetate (Provera) 2.5 mg PO DAILY [facility] Last Admin: 01/17/21 08:07 Dose: 2.5 mg Documented by: Ondansetron HCl (Zofran) 4 mg IV Q4H PRN PRN Reason: Nausea/Vomiting Oxybutynin Chloride (Oxybutynin) 5 mg PO BID [facility] Last Admin: 01/17/21 08:10 Dose: 5 mg Documented by: Polyethylene Glycol (Miralax) 17 gm PO DAILY PRN PRN Reason: Constipation Rosuvastatin Calcium (Crestor) 10 mg PO DAILY [facility] Last Admin: 01/17/21 08:07 Dose: 10 mg Documented by: Sodium Chloride (Saline Flush) 10 ml FLUSH ASDIRECTED PRN PRN Reason: Keep Vein Open Trazodone HCl (Trazodone) 100 mg PO BEDTIME [facility] Last Admin: 01/16/21 21:27 Dose: 100 mg Documented by: Discontinued Medications Remdesivir 200 mg/ Sodium (Chloride) 250 mls @ 250 mls/hr IV ONETIME ONE Stop: 01/16/21 11:59 Last Admin: 01/16/21 14:23 Dose: 250 mls/hr Documented by: Potassium Chloride (Klor-Con M20) 40 meq PO ONETIME ONE Stop: 01/17/21 08:16 Last Admin: 01/17/21 09:03 Dose: 40 meq Documented by: - Exam Quality Assessment: Supplemental Oxygen, DVT Prophylaxis General: Alert, Oriented, Cooperative, Moderate Distress Lungs: Decreased Breath Sounds, Rales. No: Crackles, Rhonchi, Wheezing Cardiovascular: Regular Rate, Regular Rhythm, No Murmurs GI/Abdominal Exam: Soft, Non-Tender, No Organomegaly, No Distention Extremities: Non-Tender, No Pedal Edema - Patient Data Lab Results Last 24 hrs: Laboratory Results - last 24 hr 01/16/21 01/16/21 01/16/21 Range/Units 09:47 09:47 09:47 WBC 9.2 (4.5-11.0) K/uL RBC 4.77 (3.30-5.50) M/uL Hgb 14.1 D (12.0-15.0) g/dL Hct 42.0 (36.0-48.0) % MCV 88 (80-98) fL MCH 30 (27-31) pg MCHC 34 (32-36) % Plt Count 280 (150-400) K/uL Neut % (Auto) 84 H (36-66) % Lymph % (Auto) 8 L (24-44) % Waller % (Auto) 8 H (2-6) % Eos % (Auto) 0 L (2-4) % Baso % (Auto) 0 (0-1) % D-Dimer, Quantitative (0.0-500.0) ng/mL Sodium 134 L (140-148) mmol/L Potassium 3.4 L (3.6-5.2) mmol/L Chloride 99 L (100-108) mmol/L Carbon Dioxide 22 (21-32) mmol/L Anion Gap 16.4 H (5.0-14.0) mmol/L BUN 8 (7-18) mg/dL Creatinine 0.9 (0.6-1.0) mg/dL Est Cr Clr Drug Dosing 58.99 mL/min Estimated GFR (MDRD) > 60 (>60) Glucose 134 H (74-106) mg/dL Calcium 8.8 (8.5-10.1) mg/dL Total Bilirubin 0.4 (0.2-1.0) mg/dL Direct Bilirubin (0.0-0.2) mg/dL Indirect Bilirubin AST 88 H (15-37) U/L ALT 62 (12-78) U/L Alkaline Phosphatase 174 H (46-116) U/L Troponin I < 0.017 (0.000-0.056) ng/mL C-Reactive Protein 12.87 H (0.0-0.3) mg/dL Total Protein 7.4 (6.4-8.2) g/dL Albumin 2.8 L (3.4-5.0) g/dL Globulin 4.6 H (2.3-3.5) g/dL Albumin/Globulin Ratio 0.6 L (1.2-2.2) Procalcitonin ng/mL Influenza Type A RNA Negative (NEGATIVE) RSV RNA (INAAT) Negative (NEGATIVE) Influenza Type B RNA Negative (NEGATIVE) SARS-CoV-2 RNA (ANA) Positive H (NEGATIVE) 01/16/21 01/16/21 01/16/21 Range/Units 10:33 10:34 10:34 WBC (4.5-11.0) K/uL RBC (3.30-5.50) M/uL Hgb (12.0-15.0) g/dL Hct (36.0-48.0) % MCV (80-98) fL MCH (27-31) pg MCHC (32-36) % Plt Count (150-400) K/uL Neut % (Auto) (36-66) % Lymph % (Auto) (24-44) % Waller % (Auto) (2-6) % Eos % (Auto) (2-4) % Baso % (Auto) (0-1) % D-Dimer, Quantitative 992.78 H (0.0-500.0) ng/mL Sodium (140-148) mmol/L Potassium (3.6-5.2) mmol/L Chloride (100-108) mmol/L Carbon Dioxide (21-32) mmol/L Anion Gap (5.0-14.0) mmol/L BUN (7-18) mg/dL Creatinine (0.6-1.0) mg/dL Est Cr Clr Drug Dosing mL/min Estimated GFR (MDRD) (>60) Glucose (74-106) mg/dL Calcium (8.5-10.1) mg/dL Total Bilirubin 0.4 (0.2-1.0) mg/dL Direct Bilirubin 0.16 (0.0-0.2) mg/dL Indirect Bilirubin 0.24 AST 88 H (15-37) U/L ALT 62 (12-78) U/L Alkaline Phosphatase 172 H (46-116) U/L Troponin I (0.000-0.056) ng/mL C-Reactive Protein (0.0-0.3) mg/dL Total Protein 7.6 (6.4-8.2) g/dL Albumin 2.8 L (3.4-5.0) g/dL Globulin 4.8 H (2.3-3.5) g/dL Albumin/Globulin Ratio 0.6 L (1.2-2.2) Procalcitonin < 0.05 ng/mL Influenza Type A RNA (NEGATIVE) RSV RNA (INAAT) (NEGATIVE) Influenza Type B RNA (NEGATIVE) SARS-CoV-2 RNA (ANA) (NEGATIVE) 01/17/21 01/17/21 01/17/21 Range/Units 05:43 05:43 05:43 WBC 5.1 (4.5-11.0) K/uL RBC 4.43 (3.30-5.50) M/uL Hgb 12.8 (12.0-15.0) g/dL Hct 39.3 (36.0-48.0) % MCV 89 (80-98) fL MCH 29 (27-31) pg MCHC 33 (32-36) % Plt Count 278 (150-400) K/uL Neut % (Auto) 76 H (36-66) % Lymph % (Auto) 12 L (24-44) % Waller % (Auto) 10 H (2-6) % Eos % (Auto) 0 L (2-4) % Baso % (Auto) 1 (0-1) % D-Dimer, Quantitative 790.16 H (0.0-500.0) ng/mL Sodium 138 L (140-148) mmol/L Potassium 3.5 L (3.6-5.2) mmol/L Chloride 103 (100-108) mmol/L Carbon Dioxide 24 (21-32) mmol/L Anion Gap 14.5 H (5.0-14.0) mmol/L BUN 11 (7-18) mg/dL Creatinine 0.8 (0.6-1.0) mg/dL Est Cr Clr Drug Dosing 66.36 mL/min Estimated GFR (MDRD) > 60 (>60) Glucose 128 H (74-106) mg/dL Calcium 8.4 L (8.5-10.1) mg/dL Total Bilirubin 0.3 (0.2-1.0) mg/dL Direct Bilirubin (0.0-0.2) mg/dL Indirect Bilirubin AST 73 H (15-37) U/L ALT 61 (12-78) U/L Alkaline Phosphatase 168 H (46-116) U/L Troponin I (0.000-0.056) ng/mL C-Reactive Protein 12.67 H (0.0-0.3) mg/dL Total Protein 6.8 (6.4-8.2) g/dL Albumin 2.5 L (3.4-5.0) g/dL Globulin 4.3 H (2.3-3.5) g/dL Albumin/Globulin Ratio 0.6 L (1.2-2.2) Procalcitonin ng/mL Influenza Type A RNA (NEGATIVE) RSV RNA (INAAT) (NEGATIVE) Influenza Type B RNA (NEGATIVE) SARS-CoV-2 RNA (ANA) (NEGATIVE) Result Diagrams: 01/17/21 05:43 01/17/21 05:43 Sepsis Event Note - Evaluation Sepsis Screening Result: No Definite Risk - Focused Exam Vital Signs: Vital Signs Temp Pulse Resp BP Pulse Ox 01/17/21 08:00 98.4 F 79 22 H 142/67 H 91 L 01/17/21 07:33 92 L 01/17/21 04:00 98.5 F 71 20 123/57 L 89 L 01/17/21 01:07 91 L 01/17/21 00:00 73 20 130/65 91 L - Problem List Review Problem List Initiated/Reviewed/Updated: Yes - My Orders Last 24 Hours: My Active Orders 01/16/21 10:37 Resuscitation Status Routine 01/16/21 11:00 dexAMETHasone [Decadron] 6 mg IVPUSH Q24H 01/16/21 11:53 Acetaminophen [TylenoL] 650 mg PO Q4H PRN Ondansetron [Zofran] 4 mg IV Q4H PRN Sodium Chloride 0.9% [Saline Flush] 10 ml FLUSH ASDIRECTED PRN polyethylene glycoL 3350 [MiraLAX] 17 gm PO DAILY PRN 01/16/21 11:53 Patient Status [ADT] Routine Ambulate [RC] QID Height and Weight [RC] DAILY Intake and Output [RC] .PRN Notify Provider Vital Signs [RC] ASDIRECTED Oxygen Therapy [RC] PRN Pulse Oximetry [RC] CONTINUOUS Up to Chair [RC] QID VTE/DVT Education [RC] Per Unit Routine Vital Signs [RC] Q4H Saline Lock Insert [OM.PC] Routine 01/16/21 12:00 Enoxaparin [Lovenox] 40 mg SUBCUT DAILY 01/16/21 21:00 Oxybutynin 5 mg PO BID traZODone 100 mg PO BEDTIME 01/17/21 07:30 Levothyroxine [Synthroid] 50 mcg PO ACBREAKFAST 01/17/21 09:00 Aspirin [Halfprin] 81 mg PO DAILY Citalopram [Celexa] 40 mg PO DAILY Rosuvastatin [Crestor] 10 mg PO DAILY estradioL 1 mg PO DAILY medroxyPROGESTERone [Provera] 2.5 mg PO DAILY 01/17/21 11:00 Remdesivir 100 mg Sodium Chloride 0.9% [Normal Saline] 100 ml IV Q24H 01/18/21 05:00 CBC WITH AUTO DIFF [HEME] Timed COMPREHENSIVE METABOLIC PN,CMP [CHEM] Timed 01/18/21 05:11 CRP [C-REACTIVE PROTEIN] [CHEM] AM D Dimer [D-DIMER QUANTITATIVE] [COAG] AM 01/19/21 07:00 Alendronate [Fosamax] 70 mg PO Zaragoza@0700 - Plan Plan:: ASSESSMENT AND PLAN COVID-19 INFECTION-complicated by pulmonary infiltrates and hypoxia. Symptoms have been present for approximately 11 days. Persistent hypoxia, requiring supplemental oxygen at 3-1/2 L/min via nasal cannula -Supportive care -Prone ventilation if possible -Supplemental oxygen as needed -Limit fluids -Remdesivir 200 mg IV today and then 100 mg IV daily for 4 days, today is day 1 of 4 -Decadron 6 mg IV daily, today is day 2 ACUTE HYPOXIC RESPIRATORY FAILURE-secondary to COVID-19 infection -Management as above MAINTENANCE ISSUES -DVT prophylaxis; Lovenox 40 mg subcu daily -GI prophylaxis; not indicated -Bowens catheter; not indicated -Nutrition; regular diet -Nicotine dependence; not required CODE STATUS-FULL CODE ADMISSION STATUS-patient will be admitted to inpatient status, expect at least a 2 night hospital stay for evaluation and management of problems as outlined above. At the time of this admission I do not reasonably expected evaluation and management of this problem will require more than a 96 hour hospital stay. DISPOSITION-anticipate discharge to home after the hospital stay.
[2021-01-17] MEDS: Dexamethasone 4 MG/ML SDV IVPUSH SCH (10:01)
[2021-01-17] MEDS: REMDESIVIR 100 MG in Sodium Chloride 0.9% 100 ML IV SCH (10:56)
[2021-01-17] MEDS: Acetaminophen 325 MG Tab PO PRN (21:49)
[2021-01-17] MEDS: traZODone 50 MG Tab PO SCH (21:49)
[2021-01-18] MEDS: Levothyroxine 50 MCG Tab PO SCH (07:47)
[2021-01-18] MEDS: Estradiol 0.5 MG Tab PO SCH (09:12)
[2021-01-18] MEDS: Citalopram 20 MG Tab PO SCH (09:12)
[2021-01-18] MEDS: Oxybutynin 5 MG Tab PO SCH ×2 (09:12→21:39)
[2021-01-18] MEDS: Aspirin 81 MG Tab.EC PO SCH (09:12)
[2021-01-18] MEDS: Rosuvastatin 10 MG Tab PO SCH (09:13)
[2021-01-18] MEDS: Enoxaparin 40 MG/0.4 ML Syringe SUBCUT SCH (09:13)
--- NOTE | 2021-01-18 09:19 | PCM.PN ---
- General Info Date of Service: 01/18/21 Subjective Update: Ms. Mcguire is been fairly stable over the last 24 hours. She continues to require supplemental oxygen but her use of supplemental oxygen has not increased since y . She is experiencing some nasal congestion that is making her uncomfortable. Vital signs have remained stable and she has been afebrile. Functional Status: Reports: Urinating - Review of Systems General: Reports: Weakness, Fatigue. Denies: Fever, Chills Pulmonary: Reports: Shortness of Breath, Cough. Denies: Pleuritic Chest Pain, Sputum, Hemoptysis, Wheezing Cardiovascular: Reports: Dyspnea on Exertion. Denies: Chest Pain, Palpitations, Orthopnea, PND, Edema, Lightheadedness Gastrointestinal: Reports: No Symptoms - Patient Data Vitals - Most Recent: Last Vital Signs Temp 97.4 F 01/18/21 08:00 Pulse 73 01/18/21 08:00 Resp 20 01/18/21 08:00 BP 136/79 01/18/21 08:00 Pulse Ox 92 L 01/18/21 08:00 Weight - Most Recent: 202 lb 6.15 oz I&O - Last 24 Hours: Intake & Output 01/17/21 01/18/21 01/18/21 22:59 06:59 14:59 Intake Total 560 340 Output Total 375 50 Balance 185 290 Lab Results Last 24 Hours: Laboratory Results - last 24 hr 01/18/21 01/18/21 01/18/21 Range/Units 04:10 04:10 04:10 WBC 7.4 (4.5-11.0) K/uL RBC 4.34 (3.30-5.50) M/uL Hgb 12.6 (12.0-15.0) g/dL Hct 38.8 (36.0-48.0) % MCV 89 (80-98) fL MCH 29 (27-31) pg MCHC 33 (32-36) % Plt Count 313 (150-400) K/uL Neut % (Auto) 80 H (36-66) % Lymph % (Auto) 9 L (24-44) % Garland % (Auto) 10 H (2-6) % Eos % (Auto) 0 L (2-4) % Baso % (Auto) 1 (0-1) % D-Dimer, Quantitative 725.85 H (0.0-500.0) ng/mL Sodium 136 L (140-148) mmol/L Potassium 4.2 (3.6-5.2) mmol/L Chloride 103 (100-108) mmol/L Carbon Dioxide 24 (21-32) mmol/L Anion Gap 13.2 (5.0-14.0) mmol/L BUN 18 D (7-18) mg/dL Creatinine 0.7 (0.6-1.0) mg/dL Est Cr Clr Drug Dosing 75.64 mL/min Estimated GFR (MDRD) > 60 (>60) Glucose 150 H (74-106) mg/dL Calcium 8.7 (8.5-10.1) mg/dL Total Bilirubin 0.3 (0.2-1.0) mg/dL AST 108 H (15-37) U/L ALT 83 H (12-78) U/L Alkaline Phosphatase 157 H (46-116) U/L C-Reactive Protein (0.0-0.3) mg/dL Total Protein 6.5 (6.4-8.2) g/dL Albumin 2.4 L (3.4-5.0) g/dL Globulin 4.1 H (2.3-3.5) g/dL Albumin/Globulin Ratio 0.6 L (1.2-2.2) 01/18/21 Range/Units 04:10 WBC (4.5-11.0) K/uL RBC (3.30-5.50) M/uL Hgb (12.0-15.0) g/dL Hct (36.0-48.0) % MCV (80-98) fL MCH (27-31) pg MCHC (32-36) % Plt Count (150-400) K/uL Neut % (Auto) (36-66) % Lymph % (Auto) (24-44) % Garland % (Auto) (2-6) % Eos % (Auto) (2-4) % Baso % (Auto) (0-1) % D-Dimer, Quantitative (0.0-500.0) ng/mL Sodium (140-148) mmol/L Potassium (3.6-5.2) mmol/L Chloride (100-108) mmol/L Carbon Dioxide (21-32) mmol/L Anion Gap (5.0-14.0) mmol/L BUN (7-18) mg/dL Creatinine (0.6-1.0) mg/dL Est Cr Clr Drug Dosing mL/min Estimated GFR (MDRD) (>60) Glucose (74-106) mg/dL Calcium (8.5-10.1) mg/dL Total Bilirubin (0.2-1.0) mg/dL AST (15-37) U/L ALT (12-78) U/L Alkaline Phosphatase (46-116) U/L C-Reactive Protein 6.36 H (0.0-0.3) mg/dL Total Protein (6.4-8.2) g/dL Albumin (3.4-5.0) g/dL Globulin (2.3-3.5) g/dL Albumin/Globulin Ratio (1.2-2.2) Med Orders - Current: Current Medications Acetaminophen (Tylenol) 650 mg PO Q4H PRN PRN Reason: Pain (Mild 1-3)/fever Last Admin: 01/17/21 21:49 Dose: 650 mg Documented by: Alendronate Sodium (Fosamax) 70 mg PO Zaragoza@0700 [facility] Aspirin (Halfprin) 81 mg PO DAILY [facility] Last Admin: 01/18/21 09:12 Dose: 81 mg Documented by: Citalopram Hydrobromide (Celexa) 40 mg PO DAILY [facility] Last Admin: 01/18/21 09:12 Dose: 40 mg Documented by: Dexamethasone (Decadron) 6 mg IVPUSH Q24H [facility] Last Admin: 01/17/21 10:01 Dose: 6 mg Documented by: Enoxaparin Sodium (Lovenox) 40 mg SUBCUT DAILY [facility] Last Admin: 01/18/21 09:13 Dose: 40 mg Documented by: Estradiol (Estradiol) 1 mg PO DAILY [facility] Last Admin: 01/18/21 09:12 Dose: 1 mg Documented by: Fluticasone Propionate (Flonase) 0 gm NASBOTH DAILY [facility] Remdesivir 100 mg/ Sodium (Chloride) 100 mls @ 100 mls/hr IV Q24H [facility] Stop: 01/20/21 11:59 Last Admin: 01/17/21 10:56 Dose: 100 mls/hr Documented by: Levothyroxine Sodium (Synthroid) 50 mcg PO ACBREAKFAST [facility] Last Admin: 01/18/21 07:47 Dose: 50 mcg Documented by: Medroxyprogesterone Acetate (Provera) 2.5 mg PO DAILY [facility] Last Admin: 01/18/21 09:13 Dose: 2.5 mg Documented by: Ondansetron HCl (Zofran) 4 mg IV Q4H PRN PRN Reason: Nausea/Vomiting Oxybutynin Chloride (Oxybutynin) 5 mg PO BID [facility] Last Admin: 01/18/21 09:12 Dose: 5 mg Documented by: Polyethylene Glycol (Miralax) 17 gm PO DAILY PRN PRN Reason: Constipation Rosuvastatin Calcium (Crestor) 10 mg PO DAILY [facility] Last Admin: 01/18/21 09:13 Dose: 10 mg Documented by: Sodium Chloride (Saline Flush) 10 ml FLUSH ASDIRECTED PRN PRN Reason: Keep Vein Open Trazodone HCl (Trazodone) 100 mg PO BEDTIME [facility] Last Admin: 01/17/21 21:49 Dose: 100 mg Documented by: Discontinued Medications Remdesivir 200 mg/ Sodium (Chloride) 250 mls @ 250 mls/hr IV ONETIME ONE Stop: 01/16/21 11:59 Last Admin: 01/16/21 14:23 Dose: 250 mls/hr Documented by: Potassium Chloride (Klor-Con M20) 40 meq PO ONETIME ONE Stop: 01/17/21 08:16 Last Admin: 01/17/21 09:03 Dose: 40 meq Documented by: - Exam Quality Assessment: Supplemental Oxygen, DVT Prophylaxis General: Alert, Oriented, Cooperative, Moderate Distress Lungs: Decreased Breath Sounds, Rales. No: Crackles, Rhonchi, Wheezing Cardiovascular: Regular Rate, Regular Rhythm, No Murmurs GI/Abdominal Exam: Soft, Non-Tender, No Organomegaly, No Distention Extremities: Non-Tender, No Pedal Edema - Patient Data Lab Results Last 24 hrs: Laboratory Results - last 24 hr 01/18/21 01/18/21 01/18/21 Range/Units 04:10 04:10 04:10 WBC 7.4 (4.5-11.0) K/uL RBC 4.34 (3.30-5.50) M/uL Hgb 12.6 (12.0-15.0) g/dL Hct 38.8 (36.0-48.0) % MCV 89 (80-98) fL MCH 29 (27-31) pg MCHC 33 (32-36) % Plt Count 313 (150-400) K/uL Neut % (Auto) 80 H (36-66) % Lymph % (Auto) 9 L (24-44) % Garland % (Auto) 10 H (2-6) % Eos % (Auto) 0 L (2-4) % Baso % (Auto) 1 (0-1) % D-Dimer, Quantitative 725.85 H (0.0-500.0) ng/mL Sodium 136 L (140-148) mmol/L Potassium 4.2 (3.6-5.2) mmol/L Chloride 103 (100-108) mmol/L Carbon Dioxide 24 (21-32) mmol/L Anion Gap 13.2 (5.0-14.0) mmol/L BUN 18 D (7-18) mg/dL Creatinine 0.7 (0.6-1.0) mg/dL Est Cr Clr Drug Dosing 75.64 mL/min Estimated GFR (MDRD) > 60 (>60) Glucose 150 H (74-106) mg/dL Calcium 8.7 (8.5-10.1) mg/dL Total Bilirubin 0.3 (0.2-1.0) mg/dL AST 108 H (15-37) U/L ALT 83 H (12-78) U/L Alkaline Phosphatase 157 H (46-116) U/L C-Reactive Protein (0.0-0.3) mg/dL Total Protein 6.5 (6.4-8.2) g/dL Albumin 2.4 L (3.4-5.0) g/dL Globulin 4.1 H (2.3-3.5) g/dL Albumin/Globulin Ratio 0.6 L (1.2-2.2) 01/18/21 Range/Units 04:10 WBC (4.5-11.0) K/uL RBC (3.30-5.50) M/uL Hgb (12.0-15.0) g/dL Hct (36.0-48.0) % MCV (80-98) fL MCH (27-31) pg MCHC (32-36) % Plt Count (150-400) K/uL Neut % (Auto) (36-66) % Lymph % (Auto) (24-44) % Garland % (Auto) (2-6) % Eos % (Auto) (2-4) % Baso % (Auto) (0-1) % D-Dimer, Quantitative (0.0-500.0) ng/mL Sodium (140-148) mmol/L Potassium (3.6-5.2) mmol/L Chloride (100-108) mmol/L Carbon Dioxide (21-32) mmol/L Anion Gap (5.0-14.0) mmol/L BUN (7-18) mg/dL Creatinine (0.6-1.0) mg/dL Est Cr Clr Drug Dosing mL/min Estimated GFR (MDRD) (>60) Glucose (74-106) mg/dL Calcium (8.5-10.1) mg/dL Total Bilirubin (0.2-1.0) mg/dL AST (15-37) U/L ALT (12-78) U/L Alkaline Phosphatase (46-116) U/L C-Reactive Protein 6.36 H (0.0-0.3) mg/dL Total Protein (6.4-8.2) g/dL Albumin (3.4-5.0) g/dL Globulin (2.3-3.5) g/dL Albumin/Globulin Ratio (1.2-2.2) Result Diagrams: 01/18/21 04:10 01/18/21 04:10 Sepsis Event Note - Evaluation Sepsis Screening Result: No Definite Risk - Focused Exam Vital Signs: Vital Signs Temp Pulse Resp BP Pulse Ox 01/18/21 08:00 97.4 F 73 20 136/79 92 L 01/18/21 07:28 92 L 01/18/21 04:00 97.5 F 58 L 24 H 134/59 L 93 L 01/18/21 00:00 98.3 F 73 24 H 152/74 H 92 L - Problem List Review Problem List Initiated/Reviewed/Updated: Yes - My Orders Last 24 Hours: My Active Orders 01/17/21 09:00 Aspirin [Halfprin] 81 mg PO DAILY Citalopram [Celexa] 40 mg PO DAILY Rosuvastatin [Crestor] 10 mg PO DAILY estradioL 1 mg PO DAILY medroxyPROGESTERone [Provera] 2.5 mg PO DAILY 01/17/21 11:00 Remdesivir 100 mg Sodium Chloride 0.9% [Normal Saline] 100 ml IV Q24H 01/18/21 09:15 Fluticasone Propionate [Flonase] See Dose Instructions NASBOTH DAILY 01/19/21 05:00 CBC WITH AUTO DIFF [HEME] Timed COMPREHENSIVE METABOLIC PN,CMP [CHEM] Timed 01/19/21 05:11 CRP [C-REACTIVE PROTEIN] [CHEM] AM D Dimer [D-DIMER QUANTITATIVE] [COAG] AM 01/19/21 07:00 Alendronate [Fosamax] 70 mg PO Zaragoza@0700 - Plan Plan:: ASSESSMENT AND PLAN COVID-19 INFECTION-complicated by pulmonary infiltrates and hypoxia. Persistent hypoxia, requiring supplemental oxygen at 3 L/min via nasal cannula. -Supportive care -Prone ventilation if possible -Supplemental oxygen as needed -Limit fluids -Remdesivir 200 mg IV today and then 100 mg IV daily for 4 days, today is day 2 of 4 -Decadron 6 mg IV daily, today is day 3 ACUTE HYPOXIC RESPIRATORY FAILURE-secondary to COVID-19 infection -Management as above MAINTENANCE ISSUES -DVT prophylaxis; Lovenox 40 mg subcu daily -GI prophylaxis; not indicated -Bowens catheter; not indicated -Nutrition; regular diet -Nicotine dependence; not required CODE STATUS-FULL CODE ADMISSION STATUS-patient will be admitted to inpatient status, expect at least a 2 night hospital stay for evaluation and management of problems as outlined above. At the time of this admission I do not reasonably expected evaluation and management of this problem will require more than a 96 hour hospital stay. DISPOSITION-anticipate discharge to home after the hospital stay.
[2021-01-18] MEDS: Fluticasone Propionate Nasal Spray 16 GM Bottle NASBOTH SCH (10:15)
[2021-01-18] MEDS: Dexamethasone 4 MG/ML SDV IVPUSH SCH (10:38)
[2021-01-18] MEDS: REMDESIVIR 100 MG in Sodium Chloride 0.9% 100 ML IV SCH (11:34)
[2021-01-18] MEDS: traZODone 50 MG Tab PO SCH (21:39)
[2021-01-19] MEDS: Alendronate 70 MG Tab PO SCH (08:37)
[2021-01-19] MEDS: Levothyroxine 50 MCG Tab PO SCH (09:08)
[2021-01-19] MEDS: Enoxaparin 40 MG/0.4 ML Syringe SUBCUT SCH (09:15)
[2021-01-19] MEDS: Rosuvastatin 10 MG Tab PO SCH (09:15)
[2021-01-19] MEDS: Estradiol 0.5 MG Tab PO SCH (09:16)
[2021-01-19] MEDS: Citalopram 20 MG Tab PO SCH (09:17)
[2021-01-19] MEDS: Oxybutynin 5 MG Tab PO SCH ×2 (09:19→21:14)
[2021-01-19] MEDS: Fluticasone Propionate Nasal Spray 16 GM Bottle NASBOTH SCH (09:19)
[2021-01-19] MEDS: Aspirin 81 MG Tab.EC PO SCH (09:25)
--- NOTE | 2021-01-19 10:26 | PCM.PN ---
- General Info Date of Service: 01/19/21 Subjective Update: Ms. Mcguire has remained fairly stable over the last 24 hours. Oxygen requirements not substantially changed over the last 24 hours. Inflammatory markers do show improvement and she is feeling somewhat stronger. Appetite remains poor. Vital signs have been within desired range and she has remained afebrile. Functional Status: Reports: Urinating - Review of Systems General: Reports: Weakness, Fatigue. Denies: Fever, Chills Pulmonary: Reports: Shortness of Breath, Cough. Denies: Pleuritic Chest Pain, Sputum, Hemoptysis, Wheezing Cardiovascular: Reports: Dyspnea on Exertion. Denies: Chest Pain, Palpitations, Orthopnea, PND, Edema, Lightheadedness Gastrointestinal: Reports: No Symptoms - Patient Data Vitals - Most Recent: Last Vital Signs Temp 97.4 F 01/19/21 08:00 Pulse 56 L 01/19/21 08:00 Resp 21 H 01/19/21 08:00 BP 93/56 L 01/19/21 08:00 Pulse Ox 90 L 01/19/21 09:11 Weight - Most Recent: 206 lb 5.643 oz I&O - Last 24 Hours: Intake & Output 01/18/21 01/19/21 01/19/21 22:59 06:59 14:59 Intake Total 320 Output Total 200 250 Balance 120 -250 Lab Results Last 24 Hours: Laboratory Results - last 24 hr 01/19/21 01/19/21 01/19/21 Range/Units 04:25 04:25 04:25 WBC 10.5 (4.5-11.0) K/uL RBC 4.29 (3.30-5.50) M/uL Hgb 12.6 (12.0-15.0) g/dL Hct 38.3 (36.0-48.0) % MCV 89 (80-98) fL MCH 29 (27-31) pg MCHC 33 (32-36) % Plt Count 361 (150-400) K/uL Neut % (Auto) 82 H (36-66) % Lymph % (Auto) 8 L (24-44) % Beaver % (Auto) 10 H (2-6) % Eos % (Auto) 0 L (2-4) % Baso % (Auto) 1 (0-1) % D-Dimer, Quantitative (0.0-500.0) ng/mL Sodium 137 L (140-148) mmol/L Potassium 4.1 (3.6-5.2) mmol/L Chloride 102 (100-108) mmol/L Carbon Dioxide 24 (21-32) mmol/L Anion Gap 15.1 H (5.0-14.0) mmol/L BUN 16 (7-18) mg/dL Creatinine 0.8 (0.6-1.0) mg/dL Est Cr Clr Drug Dosing 66.18 mL/min Estimated GFR (MDRD) > 60 (>60) Glucose 120 H (74-106) mg/dL Calcium 8.9 (8.5-10.1) mg/dL Total Bilirubin 0.4 (0.2-1.0) mg/dL AST 66 H (15-37) U/L ALT 77 (12-78) U/L Alkaline Phosphatase 151 H (46-116) U/L C-Reactive Protein 3.03 H (0.0-0.3) mg/dL Total Protein 6.2 L (6.4-8.2) g/dL Albumin 2.4 L (3.4-5.0) g/dL Globulin 3.8 H (2.3-3.5) g/dL Albumin/Globulin Ratio 0.6 L (1.2-2.2) 01/19/21 Range/Units 04:30 WBC (4.5-11.0) K/uL RBC (3.30-5.50) M/uL Hgb (12.0-15.0) g/dL Hct (36.0-48.0) % MCV (80-98) fL MCH (27-31) pg MCHC (32-36) % Plt Count (150-400) K/uL Neut % (Auto) (36-66) % Lymph % (Auto) (24-44) % Beaver % (Auto) (2-6) % Eos % (Auto) (2-4) % Baso % (Auto) (0-1) % D-Dimer, Quantitative 627.86 H (0.0-500.0) ng/mL Sodium (140-148) mmol/L Potassium (3.6-5.2) mmol/L Chloride (100-108) mmol/L Carbon Dioxide (21-32) mmol/L Anion Gap (5.0-14.0) mmol/L BUN (7-18) mg/dL Creatinine (0.6-1.0) mg/dL Est Cr Clr Drug Dosing mL/min Estimated GFR (MDRD) (>60) Glucose (74-106) mg/dL Calcium (8.5-10.1) mg/dL Total Bilirubin (0.2-1.0) mg/dL AST (15-37) U/L ALT (12-78) U/L Alkaline Phosphatase (46-116) U/L C-Reactive Protein (0.0-0.3) mg/dL Total Protein (6.4-8.2) g/dL Albumin (3.4-5.0) g/dL Globulin (2.3-3.5) g/dL Albumin/Globulin Ratio (1.2-2.2) Med Orders - Current: Current Medications Acetaminophen (Tylenol) 650 mg PO Q4H PRN PRN Reason: Pain (Mild 1-3)/fever Last Admin: 01/17/21 21:49 Dose: 650 mg Documented by: Alendronate Sodium (Fosamax) 70 mg PO Zaragoza@0700 [facility] Last Admin: 01/19/21 08:37 Dose: 70 mg Documented by: Aspirin (Halfprin) 81 mg PO DAILY [facility] Last Admin: 01/19/21 09:25 Dose: 81 mg Documented by: Citalopram Hydrobromide (Celexa) 40 mg PO DAILY [facility] Last Admin: 01/19/21 09:17 Dose: 40 mg Documented by: Dexamethasone (Decadron) 6 mg IVPUSH Q24H [facility] Last Admin: 01/18/21 10:38 Dose: 6 mg Documented by: Enoxaparin Sodium (Lovenox) 40 mg SUBCUT DAILY [facility] Last Admin: 01/19/21 09:15 Dose: 40 mg Documented by: Estradiol (Estradiol) 1 mg PO DAILY [facility] Last Admin: 01/19/21 09:16 Dose: 1 mg Documented by: Fluticasone Propionate (Flonase) 0 gm NASBOTH DAILY [facility] Last Admin: 01/19/21 09:19 Dose: 1 spray Documented by: Furosemide (Lasix) 20 mg IVPUSH NOW ONE Stop: 01/19/21 10:24 Remdesivir 100 mg/ Sodium (Chloride) 100 mls @ 100 mls/hr IV Q24H [facility] Stop: 01/20/21 11:59 Last Admin: 01/18/21 11:34 Dose: 100 mls/hr Documented by: Levothyroxine Sodium (Synthroid) 50 mcg PO ACBREAKFAST [facility] Last Admin: 01/19/21 09:08 Dose: 50 mcg Documented by: Medroxyprogesterone Acetate (Provera) 2.5 mg PO DAILY [facility] Last Admin: 01/19/21 09:18 Dose: 2.5 mg Documented by: Ondansetron HCl (Zofran) 4 mg IV Q4H PRN PRN Reason: Nausea/Vomiting Oxybutynin Chloride (Oxybutynin) 5 mg PO BID [facility] Last Admin: 01/19/21 09:19 Dose: 5 mg Documented by: Polyethylene Glycol (Miralax) 17 gm PO DAILY PRN PRN Reason: Constipation Rosuvastatin Calcium (Crestor) 10 mg PO DAILY [facility] Last Admin: 01/19/21 09:15 Dose: 10 mg Documented by: Sodium Chloride (Saline Flush) 10 ml FLUSH ASDIRECTED PRN PRN Reason: Keep Vein Open Trazodone HCl (Trazodone) 100 mg PO BEDTIME [facility] Last Admin: 01/18/21 21:39 Dose: 100 mg Documented by: Discontinued Medications Remdesivir 200 mg/ Sodium (Chloride) 250 mls @ 250 mls/hr IV ONETIME ONE Stop: 01/16/21 11:59 Last Admin: 01/16/21 14:23 Dose: 250 mls/hr Documented by: Potassium Chloride (Klor-Con M20) 40 meq PO ONETIME ONE Stop: 01/17/21 08:16 Last Admin: 01/17/21 09:03 Dose: 40 meq Documented by: - Exam Quality Assessment: Supplemental Oxygen, DVT Prophylaxis General: Alert, Oriented, Cooperative, Mild Distress Lungs: Decreased Breath Sounds. No: Crackles, Rales, Rhonchi, Wheezing Cardiovascular: Regular Rate, Regular Rhythm, No Murmurs GI/Abdominal Exam: Soft, Non-Tender, No Organomegaly, No Distention Extremities: Non-Tender, No Pedal Edema - Patient Data Lab Results Last 24 hrs: Laboratory Results - last 24 hr 01/19/21 01/19/21 01/19/21 Range/Units 04:25 04:25 04:25 WBC 10.5 (4.5-11.0) K/uL RBC 4.29 (3.30-5.50) M/uL Hgb 12.6 (12.0-15.0) g/dL Hct 38.3 (36.0-48.0) % MCV 89 (80-98) fL MCH 29 (27-31) pg MCHC 33 (32-36) % Plt Count 361 (150-400) K/uL Neut % (Auto) 82 H (36-66) % Lymph % (Auto) 8 L (24-44) % Beaver % (Auto) 10 H (2-6) % Eos % (Auto) 0 L (2-4) % Baso % (Auto) 1 (0-1) % D-Dimer, Quantitative (0.0-500.0) ng/mL Sodium 137 L (140-148) mmol/L Potassium 4.1 (3.6-5.2) mmol/L Chloride 102 (100-108) mmol/L Carbon Dioxide 24 (21-32) mmol/L Anion Gap 15.1 H (5.0-14.0) mmol/L BUN 16 (7-18) mg/dL Creatinine 0.8 (0.6-1.0) mg/dL Est Cr Clr Drug Dosing 66.18 mL/min Estimated GFR (MDRD) > 60 (>60) Glucose 120 H (74-106) mg/dL Calcium 8.9 (8.5-10.1) mg/dL Total Bilirubin 0.4 (0.2-1.0) mg/dL AST 66 H (15-37) U/L ALT 77 (12-78) U/L Alkaline Phosphatase 151 H (46-116) U/L C-Reactive Protein 3.03 H (0.0-0.3) mg/dL Total Protein 6.2 L (6.4-8.2) g/dL Albumin 2.4 L (3.4-5.0) g/dL Globulin 3.8 H (2.3-3.5) g/dL Albumin/Globulin Ratio 0.6 L (1.2-2.2) 01/19/21 Range/Units 04:30 WBC (4.5-11.0) K/uL RBC (3.30-5.50) M/uL Hgb (12.0-15.0) g/dL Hct (36.0-48.0) % MCV (80-98) fL MCH (27-31) pg MCHC (32-36) % Plt Count (150-400) K/uL Neut % (Auto) (36-66) % Lymph % (Auto) (24-44) % Beaver % (Auto) (2-6) % Eos % (Auto) (2-4) % Baso % (Auto) (0-1) % D-Dimer, Quantitative 627.86 H (0.0-500.0) ng/mL Sodium (140-148) mmol/L Potassium (3.6-5.2) mmol/L Chloride (100-108) mmol/L Carbon Dioxide (21-32) mmol/L Anion Gap (5.0-14.0) mmol/L BUN (7-18) mg/dL Creatinine (0.6-1.0) mg/dL Est Cr Clr Drug Dosing mL/min Estimated GFR (MDRD) (>60) Glucose (74-106) mg/dL Calcium (8.5-10.1) mg/dL Total Bilirubin (0.2-1.0) mg/dL AST (15-37) U/L ALT (12-78) U/L Alkaline Phosphatase (46-116) U/L C-Reactive Protein (0.0-0.3) mg/dL Total Protein (6.4-8.2) g/dL Albumin (3.4-5.0) g/dL Globulin (2.3-3.5) g/dL Albumin/Globulin Ratio (1.2-2.2) Result Diagrams: 01/19/21 04:25 01/19/21 04:25 Sepsis Event Note - Evaluation Sepsis Screening Result: No Definite Risk - Focused Exam Vital Signs: Vital Signs Temp Pulse Resp BP Pulse Ox 01/19/21 09:11 90 L 01/19/21 08:00 97.4 F 56 L 21 H 93/56 L 90 L 01/19/21 04:00 98.3 F 24 H 125/50 L 90 L 01/19/21 00:00 98.2 F 62 20 147/72 H 90 L - Problem List Review Problem List Initiated/Reviewed/Updated: Yes - My Orders Last 24 Hours: My Active Orders 01/19/21 07:00 Alendronate [Fosamax] 70 mg PO Zaragoza@0700 01/19/21 10:23 Furosemide [Lasix] 20 mg IVPUSH NOW ONE 01/20/21 05:00 CBC WITH AUTO DIFF [HEME] Timed COMPREHENSIVE METABOLIC PN,CMP [CHEM] Timed 01/20/21 05:11 CRP [C-REACTIVE PROTEIN] [CHEM] AM D Dimer [D-DIMER QUANTITATIVE] [COAG] AM - Plan Plan:: ASSESSMENT AND PLAN COVID-19 INFECTION-complicated by pulmonary infiltrates and hypoxia. Persistent hypoxia, requiring supplemental oxygen at 4 L/min via nasal cannula. -Supportive care -Prone ventilation if possible -Supplemental oxygen as needed -Limit fluids -Furosemide 20 mg IV today, reassess in a.m. -Remdesivir 200 mg IV today and then 100 mg IV daily for 4 days, today is day 3 of 4 -Decadron 6 mg IV daily, today is day 4 ACUTE HYPOXIC RESPIRATORY FAILURE-secondary to COVID-19 infection -Management as above MAINTENANCE ISSUES -DVT prophylaxis; Lovenox 40 mg subcu daily -GI prophylaxis; not indicated -Bowens catheter; not indicated -Nutrition; regular diet -Nicotine dependence; not required CODE STATUS-FULL CODE ADMISSION STATUS-patient will be admitted to inpatient status, expect at least a 2 night hospital stay for evaluation and management of problems as outlined above. At the time of this admission I do not reasonably expected evaluation and management of this problem will require more than a 96 hour hospital stay. DISPOSITION-anticipate discharge to home after the hospital stay.
[2021-01-19] MEDS ORDERED: Furosemide 20 MG/2 ML VIAL IVPUSH ONE (10:30)
[2021-01-19] MEDS: Dexamethasone 4 MG/ML SDV IVPUSH SCH (11:08)
[2021-01-19] MEDS: REMDESIVIR 100 MG in Sodium Chloride 0.9% 100 ML IV SCH (11:18)
[2021-01-19] MEDS: traZODone 50 MG Tab PO SCH (21:14)
[2021-01-20] MEDS: Aspirin 81 MG Tab.EC PO SCH (08:09)
[2021-01-20] MEDS: Fluticasone Propionate Nasal Spray 16 GM Bottle NASBOTH SCH (08:09)
[2021-01-20] MEDS: Levothyroxine 50 MCG Tab PO SCH (08:09)
[2021-01-20] MEDS: Estradiol 0.5 MG Tab PO SCH (08:09)
[2021-01-20] MEDS: Rosuvastatin 10 MG Tab PO SCH (08:09)
[2021-01-20] MEDS: Oxybutynin 5 MG Tab PO SCH ×2 (08:09→21:17)
[2021-01-20] MEDS: Citalopram 20 MG Tab PO SCH (08:09)
[2021-01-20] MEDS: Enoxaparin 40 MG/0.4 ML Syringe SUBCUT SCH (08:10)
[2021-01-20] MEDS ORDERED: Potassium Chloride 20 MEQ Tab.ER PO ONE (08:30)
--- NOTE | 2021-01-20 09:13 | PCM.PN ---
- General Info Date of Service: 01/20/21 Subjective Update: There were no acute events overnight. She still feels weak and tired. She gets short of breath walking to the bathroom and does desaturate. To take several mi nutes to get her saturations back to the normal level. She is still on 4 L of oxygen. Cough is minimal. She has not had any fevers. Tolerating treatment with remdesivir and steroids. Inflammatory markers continue a trend down. No nausea or abdominal pain. Functional Status: Reports: Pain Controlled, Tolerating Diet - Review of Systems General: Reports: Weakness. Denies: Fever Pulmonary: Reports: Shortness of Breath. Denies: Cough - Patient Data Vitals - Most Recent: Last Vital Signs Temp 35.9 C L 01/20/21 08:00 Pulse 69 01/20/21 08:00 Resp 20 01/20/21 08:00 BP 124/43 L 01/20/21 08:00 Pulse Ox 87 L 01/20/21 08:00 Weight - Most Recent: 92.8 kg I&O - Last 24 Hours: Intake & Output 01/19/21 01/20/21 01/20/21 22:59 06:59 14:59 Intake Total 680 Output Total 400 250 Balance 280 -250 Lab Results Last 24 Hours: Laboratory Results - last 24 hr 01/20/21 01/20/21 01/20/21 Range/Units 04:10 04:10 04:10 WBC 12.3 H (4.5-11.0) K/uL RBC 4.41 (3.30-5.50) M/uL Hgb 12.8 (12.0-15.0) g/dL Hct 39.0 (36.0-48.0) % MCV 88 (80-98) fL MCH 29 (27-31) pg MCHC 33 (32-36) % Plt Count 374 (150-400) K/uL Neut % (Auto) 84 H (36-66) % Lymph % (Auto) 7 L (24-44) % [place] % (Auto) 9 H (2-6) % Eos % (Auto) 0 L (2-4) % Baso % (Auto) 0 (0-1) % D-Dimer, Quantitative 504.88 H (0.0-500.0) ng/mL Sodium 137 L (140-148) mmol/L Potassium 4.2 (3.6-5.2) mmol/L Chloride 102 (100-108) mmol/L Carbon Dioxide 26 (21-32) mmol/L Anion Gap 13.2 (5.0-14.0) mmol/L BUN 18 (7-18) mg/dL Creatinine 0.8 (0.6-1.0) mg/dL Est Cr Clr Drug Dosing 66.18 mL/min Estimated GFR (MDRD) > 60 (>60) Glucose 128 H (74-106) mg/dL Calcium 8.7 (8.5-10.1) mg/dL Total Bilirubin 0.4 (0.2-1.0) mg/dL AST 32 (15-37) U/L ALT 64 (12-78) U/L Alkaline Phosphatase 145 H (46-116) U/L C-Reactive Protein (0.0-0.3) mg/dL Total Protein 6.3 L (6.4-8.2) g/dL Albumin 2.5 L (3.4-5.0) g/dL Globulin 3.8 H (2.3-3.5) g/dL Albumin/Globulin Ratio 0.7 L (1.2-2.2) 01/20/21 Range/Units 04:10 WBC (4.5-11.0) K/uL RBC (3.30-5.50) M/uL Hgb (12.0-15.0) g/dL Hct (36.0-48.0) % MCV (80-98) fL MCH (27-31) pg MCHC (32-36) % Plt Count (150-400) K/uL Neut % (Auto) (36-66) % Lymph % (Auto) (24-44) % [place] % (Auto) (2-6) % Eos % (Auto) (2-4) % Baso % (Auto) (0-1) % D-Dimer, Quantitative (0.0-500.0) ng/mL Sodium (140-148) mmol/L Potassium (3.6-5.2) mmol/L Chloride (100-108) mmol/L Carbon Dioxide (21-32) mmol/L Anion Gap (5.0-14.0) mmol/L BUN (7-18) mg/dL Creatinine (0.6-1.0) mg/dL Est Cr Clr Drug Dosing mL/min Estimated GFR (MDRD) (>60) Glucose (74-106) mg/dL Calcium (8.5-10.1) mg/dL Total Bilirubin (0.2-1.0) mg/dL AST (15-37) U/L ALT (12-78) U/L Alkaline Phosphatase (46-116) U/L C-Reactive Protein 2.63 H (0.0-0.3) mg/dL Total Protein (6.4-8.2) g/dL Albumin (3.4-5.0) g/dL Globulin (2.3-3.5) g/dL Albumin/Globulin Ratio (1.2-2.2) Med Orders - Current: Current Medications Acetaminophen (Tylenol) 650 mg PO Q4H PRN PRN Reason: Pain (Mild 1-3)/fever Last Admin: 01/17/21 21:49 Dose: 650 mg Documented by: Alendronate Sodium (Fosamax) 70 mg PO Zaragoza@0700 [facility] Last Admin: 01/19/21 08:37 Dose: 70 mg Documented by: Aspirin (Halfprin) 81 mg PO DAILY [facility] Last Admin: 01/20/21 08:09 Dose: 81 mg Documented by: Citalopram Hydrobromide (Celexa) 40 mg PO DAILY [facility] Last Admin: 01/20/21 08:09 Dose: 40 mg Documented by: Dexamethasone (Decadron) 6 mg IVPUSH Q24H [facility] Last Admin: 01/19/21 11:08 Dose: 6 mg Documented by: Enoxaparin Sodium (Lovenox) 40 mg SUBCUT DAILY [facility] Last Admin: 01/20/21 08:10 Dose: 40 mg Documented by: Estradiol (Estradiol) 1 mg PO DAILY [facility] Last Admin: 01/20/21 08:09 Dose: 1 mg Documented by: Fluticasone Propionate (Flonase) 0 gm NASBOTH DAILY [facility] Last Admin: 01/20/21 08:09 Dose: 1 spray Documented by: Remdesivir 100 mg/ Sodium (Chloride) 100 mls @ 100 mls/hr IV Q24H [facility] Stop: 01/20/21 11:59 Last Admin: 01/19/21 11:18 Dose: 100 mls/hr Documented by: Levothyroxine Sodium (Synthroid) 50 mcg PO ACBREAKFAST [facility] Last Admin: 01/20/21 08:09 Dose: 50 mcg Documented by: Medroxyprogesterone Acetate (Provera) 2.5 mg PO DAILY [facility] Last Admin: 01/20/21 08:09 Dose: 2.5 mg Documented by: Ondansetron HCl (Zofran) 4 mg IV Q4H PRN PRN Reason: Nausea/Vomiting Oxybutynin Chloride (Oxybutynin) 5 mg PO BID [facility] Last Admin: 01/20/21 08:09 Dose: 5 mg Documented by: Polyethylene Glycol (Miralax) 17 gm PO DAILY PRN PRN Reason: Constipation Rosuvastatin Calcium (Crestor) 10 mg PO DAILY [facility] Last Admin: 01/20/21 08:09 Dose: 10 mg Documented by: Sodium Chloride (Saline Flush) 10 ml FLUSH ASDIRECTED PRN PRN Reason: Keep Vein Open Trazodone HCl (Trazodone) 100 mg PO BEDTIME [facility] Last Admin: 01/19/21 21:14 Dose: 100 mg Documented by: Discontinued Medications Furosemide (Lasix) 20 mg IVPUSH NOW ONE Stop: 01/19/21 10:31 Last Admin: 01/19/21 11:14 Dose: 20 mg Documented by: Remdesivir 200 mg/ Sodium (Chloride) 250 mls @ 250 mls/hr IV ONETIME ONE Stop: 01/16/21 11:59 Last Admin: 01/16/21 14:23 Dose: 250 mls/hr Documented by: Potassium Chloride (Klor-Con M20) 40 meq PO ONETIME ONE Stop: 01/17/21 08:16 Last Admin: 01/17/21 09:03 Dose: 40 meq Documented by: Potassium Chloride (Klor-Con M20) 40 meq PO ONETIME ONE Stop: 01/20/21 08:31 - Exam Quality Assessment: Supplemental Oxygen General: Alert, Oriented, Cooperative, No Acute Distress Lungs: Normal Respiratory Effort, Crackles (few both bases) Cardiovascular: Regular Rate, Regular Rhythm GI/Abdominal Exam: Soft, No Distention Extremities: No Pedal Edema. No: Increased Warmth Skin: Warm, Dry Psy/Mental Status: Alert, Normal Affect - Patient Data Lab Results Last 24 hrs: Laboratory Results - last 24 hr 0201/20/21 01/20/21 Range/Units 04:10 04:10 04:10 WBC 12.3 H (4.5-11.0) K/uL RBC 4.41 (3.30-5.50) M/uL Hgb 12.8 (12.0-15.0) g/dL Hct 39.0 (36.0-48.0) % MCV 88 (80-98) fL MCH 29 (27-31) pg MCHC 33 (32-36) % Plt Count 374 (150-400) K/uL Neut % (Auto) 84 H (36-66) % Lymph % (Auto) 7 L (24-44) % [place] % (Auto) 9 H (2-6) % Eos % (Auto) 0 L (2-4) % Baso % (Auto) 0 (0-1) % D-Dimer, Quantitative 504.88 H (0.0-500.0) ng/mL Sodium 137 L (140-148) mmol/L Potassium 4.2 (3.6-5.2) mmol/L Chloride 102 (100-108) mmol/L Carbon Dioxide 26 (21-32) mmol/L Anion Gap 13.2 (5.0-14.0) mmol/L BUN 18 (7-18) mg/dL Creatinine 0.8 (0.6-1.0) mg/dL Est Cr Clr Drug Dosing 66.18 mL/min Estimated GFR (MDRD) > 60 (>60) Glucose 128 H (74-106) mg/dL Calcium 8.7 (8.5-10.1) mg/dL Total Bilirubin 0.4 (0.2-1.0) mg/dL AST 32 (15-37) U/L ALT 64 (12-78) U/L Alkaline Phosphatase 145 H (46-116) U/L C-Reactive Protein (0.0-0.3) mg/dL Total Protein 6.3 L (6.4-8.2) g/dL Albumin 2.5 L (3.4-5.0) g/dL Globulin 3.8 H (2.3-3.5) g/dL Albumin/Globulin Ratio 0.7 L (1.2-2.2) 01/20/21 Range/Units 04:10 WBC (4.5-11.0) K/uL RBC (3.30-5.50) M/uL Hgb (12.0-15.0) g/dL Hct (36.0-48.0) % MCV (80-98) fL MCH (27-31) pg MCHC (32-36) % Plt Count (150-400) K/uL Neut % (Auto) (36-66) % Lymph % (Auto) (24-44) % [place] % (Auto) (2-6) % Eos % (Auto) (2-4) % Baso % (Auto) (0-1) % D-Dimer, Quantitative (0.0-500.0) ng/mL Sodium (140-148) mmol/L Potassium (3.6-5.2) mmol/L Chloride (100-108) mmol/L Carbon Dioxide (21-32) mmol/L Anion Gap (5.0-14.0) mmol/L BUN (7-18) mg/dL Creatinine (0.6-1.0) mg/dL Est Cr Clr Drug Dosing mL/min Estimated GFR (MDRD) (>60) Glucose (74-106) mg/dL Calcium (8.5-10.1) mg/dL Total Bilirubin (0.2-1.0) mg/dL AST (15-37) U/L ALT (12-78) U/L Alkaline Phosphatase (46-116) U/L C-Reactive Protein 2.63 H (0.0-0.3) mg/dL Total Protein (6.4-8.2) g/dL Albumin (3.4-5.0) g/dL Globulin (2.3-3.5) g/dL Albumin/Globulin Ratio (1.2-2.2) Result Diagrams: 01/20/21 04:10 01/20/21 04:10 Sepsis Event Note - Evaluation Sepsis Screening Result: No Definite Risk - Focused Exam Vital Signs: Vital Signs Temp Pulse Resp BP Pulse Ox 01/20/21 08:00 35.9 C L 69 20 124/43 L 87 L 01/20/21 07:57 90 L 01/20/21 04:00 36.1 C 20 133/58 L 94 L 01/20/21 00:00 36.1 C 16 123/48 L 93 L - Problem List Review Problem List Initiated/Reviewed/Updated: Yes - Plan Plan:: ASSESSMENT AND PLAN COVID-19 INFECTION-onset of symptoms on January 06. Respiratory status stable at 4 L of supplemental oxygen. Significantly de-saturation with activity. Tolerating treatment so far. Inflammatory markers improving. -Supportive care -Prone ventilation if possible -Supplemental oxygen as needed -Limit fluids -Remdesivir x5 days (day 5) -Decadron 6 mg IV daily (day 5) -Discontinue precautions on the morning of January 22 (15 days) ACUTE HYPOXIC RESPIRATORY FAILURE-secondary to COVID-19 infection. Stable and still requiring supplemental oxygen. -Management as above MAINTENANCE ISSUES -DVT prophylaxis; Lovenox 40 mg subcu daily -GI prophylaxis; not indicated -Bowens catheter; not indicated -Nutrition; regular diet DISPOSITION-anticipate discharge to home after the hospital stay. Yves Ulloa MD
[2021-01-20] MEDS: Dexamethasone 4 MG/ML SDV IVPUSH SCH (10:37)
[2021-01-20] MEDS: REMDESIVIR 100 MG in Sodium Chloride 0.9% 100 ML IV SCH (10:39)
[2021-01-20] MEDS ORDERED: Iopamidol 612 MG/ML 500 ML Multipack Bottle IV ONE (10:40)
[2021-01-20] MEDS: traZODone 50 MG Tab PO SCH (21:17)
[2021-01-21] MEDS: Levothyroxine 50 MCG Tab PO SCH (08:15)
[2021-01-21] MEDS: Oxybutynin 5 MG Tab PO SCH ×2 (08:16→20:55)
[2021-01-21] MEDS: Rosuvastatin 10 MG Tab PO SCH (08:16)
[2021-01-21] MEDS: Aspirin 81 MG Tab.EC PO SCH (08:16)
[2021-01-21] MEDS: Citalopram 20 MG Tab PO SCH (08:17)
[2021-01-21] MEDS: Estradiol 0.5 MG Tab PO SCH (08:17)
[2021-01-21] MEDS: Fluticasone Propionate Nasal Spray 16 GM Bottle NASBOTH SCH (08:18)
[2021-01-21] MEDS: Enoxaparin 40 MG/0.4 ML Syringe SUBCUT SCH (08:18)
--- NOTE | 2021-01-21 09:27 | PCM.PN ---
- General Info Date of Service: 01/21/21 Subjective Update: No acute events overnight. Oxygenation has been stable. She did have an event around noon today where she became weak and collapsed on the bed. She was not wearing her oxygen at the time and was noted to be quite hypoxic. She has recovered and is feeling better with supplemental oxygen back in place. Cough is minimal. Still fatigued and weak but seems to slowly be improving. No fevers. Functional Status: Reports: Pain Controlled, Tolerating Diet - Review of Systems General: Reports: Fatigue. Denies: Fever Pulmonary: Reports: Shortness of Breath - Patient Data Vitals - Most Recent: Last Vital Signs Temp 36.6 C 01/21/21 00:00 Pulse 50 L 01/21/21 04:00 Resp 20 01/21/21 04:00 BP 104/54 L 01/21/21 04:00 Pulse Ox 92 L 01/21/21 04:00 Weight - Most Recent: 92.533 kg I&O - Last 24 Hours: Intake & Output 01/20/21 01/21/21 01/21/21 22:59 06:59 14:59 Intake Total 1175 Output Total 400 Balance 775 Med Orders - Current: Current Medications Acetaminophen (Tylenol) 650 mg PO Q4H PRN PRN Reason: Pain (Mild 1-3)/fever Last Admin: 01/17/21 21:49 Dose: 650 mg Documented by: Alendronate Sodium (Fosamax) 70 mg PO Zaragoza@0700 [facility] Last Admin: 01/19/21 08:37 Dose: 70 mg Documented by: Aspirin (Halfprin) 81 mg PO DAILY [facility] Last Admin: 01/21/21 08:16 Dose: 81 mg Documented by: Citalopram Hydrobromide (Celexa) 40 mg PO DAILY [facility] Last Admin: 01/21/21 08:17 Dose: 40 mg Documented by: Dexamethasone (Decadron) 6 mg IVPUSH Q24H [facility] Last Admin: 01/20/21 10:37 Dose: 6 mg Documented by: Enoxaparin Sodium (Lovenox) 40 mg SUBCUT DAILY [facility] Last Admin: 01/21/21 08:18 Dose: 40 mg Documented by: Estradiol (Estradiol) 1 mg PO DAILY [facility] Last Admin: 01/21/21 08:17 Dose: 1 mg Documented by: Fluticasone Propionate (Flonase) 0 gm NASBOTH DAILY [facility] Last Admin: 01/21/21 08:18 Dose: 1 spray Documented by: Levothyroxine Sodium (Synthroid) 50 mcg PO ACBREAKFAST [facility] Last Admin: 01/21/21 08:15 Dose: 50 mcg Documented by: Medroxyprogesterone Acetate (Provera) 2.5 mg PO DAILY [facility] Last Admin: 01/21/21 08:15 Dose: 2.5 mg Documented by: Ondansetron HCl (Zofran) 4 mg IV Q4H PRN PRN Reason: Nausea/Vomiting Oxybutynin Chloride (Oxybutynin) 5 mg PO BID [facility] Last Admin: 01/21/21 08:16 Dose: 5 mg Documented by: Polyethylene Glycol (Miralax) 17 gm PO DAILY PRN PRN Reason: Constipation Rosuvastatin Calcium (Crestor) 10 mg PO DAILY [facility] Last Admin: 01/21/21 08:16 Dose: 10 mg Documented by: Sodium Chloride (Saline Flush) 10 ml FLUSH ASDIRECTED PRN PRN Reason: Keep Vein Open Trazodone HCl (Trazodone) 100 mg PO BEDTIME [facility] Last Admin: 01/20/21 21:17 Dose: 100 mg Documented by: Discontinued Medications Furosemide (Lasix) 20 mg IVPUSH NOW ONE Stop: 01/19/21 10:31 Last Admin: 01/19/21 11:14 Dose: 20 mg Documented by: Remdesivir 200 mg/ Sodium (Chloride) 250 mls @ 250 mls/hr IV ONETIME ONE Stop: 01/16/21 11:59 Last Admin: 01/16/21 14:23 Dose: 250 mls/hr Documented by: Remdesivir 100 mg/ Sodium (Chloride) 100 mls @ 100 mls/hr IV Q24H [facility] Stop: 01/20/21 11:59 Last Admin: 01/20/21 10:39 Dose: 100 mls/hr Documented by: Sodium Chloride (Normal Saline) 82 mls @ 3.5 mls/sec IV ASDIRECTED [facility] Stop: 01/20/21 10:46 Iopamidol (Isovue-300 (61%)) 140 ml IV ONETIME ONE Stop: 01/20/21 10:41 Last Admin: 01/20/21 11:45 Dose: Not Given Documented by: Potassium Chloride (Klor-Con M20) 40 meq PO ONETIME ONE Stop: 01/17/21 08:16 Last Admin: 01/17/21 09:03 Dose: 40 meq Documented by: Potassium Chloride (Klor-Con M20) 40 meq PO ONETIME ONE Stop: 01/20/21 08:31 Last Admin: 01/20/21 09:13 Dose: 40 meq Documented by: - Exam Quality Assessment: Supplemental Oxygen General: Alert, Oriented, Cooperative, No Acute Distress Lungs: Normal Respiratory Effort, Decreased Breath Sounds (mild diffuse). No: Crackles, Wheezing Cardiovascular: Regular Rate, Regular Rhythm GI/Abdominal Exam: Soft, No Distention Extremities: No Pedal Edema. No: Increased Warmth Skin: Warm, Dry Psy/Mental Status: Alert, Normal Affect - Patient Data Result Diagrams: 01/20/21 04:10 01/20/21 04:10 Sepsis Event Note - Evaluation Sepsis Screening Result: No Definite Risk - Focused Exam Vital Signs: Vital Signs Temp Pulse Resp BP Pulse Ox 01/21/21 04:00 50 L 20 104/54 L 92 L 01/21/21 00:00 36.6 C 48 L 20 117/51 L 92 L - Problem List Review Problem List Initiated/Reviewed/Updated: Yes - My Orders Last 24 Hours: My Active Orders 01/21/21 11:00 dexAMETHasone 6 mg PO Q24H 01/22/21 05:00 CBC W/O DIFF,HEMOGRAM [HEME] Timed (1) COMPREHENSIVE METABOLIC PN,CMP [CHEM] Timed CRP [C-REACTIVE PROTEIN] [CHEM] Timed D-DIMER QUANTITATIVE [COAG] Timed - Plan Plan:: ASSESSMENT AND PLAN COVID-19 INFECTION-onset of symptoms on January 06. Respiratory status stable at 4 L of supplemental oxygen. Seems to be slowly improving. She has completed treatment with remdesivir. -Supportive care -Prone ventilation if possible -Supplemental oxygen as needed -Limit fluids -Remdesivir complete -Decadron 6 mg daily (day 6) -Discontinue precautions on the morning of January 22 (15 days) ACUTE HYPOXIC RESPIRATORY FAILURE-secondary to COVID-19 infection. Stable and still requiring supplemental oxygen at 4 L/min. -Management as above MAINTENANCE ISSUES -DVT prophylaxis; enoxaparin -GI prophylaxis; not indicated -Bowens catheter; not indicated -Nutrition; regular diet DISPOSITION-anticipate discharge to home after the hospital stay. Yves Ulloa MD
[2021-01-21] MEDS: Dexamethasone 2 MG Tab PO SCH (10:46)
[2021-01-21] MEDS: traZODone 50 MG Tab PO SCH (20:55)
[2021-01-22] MEDS: Levothyroxine 50 MCG Tab PO SCH (07:53)
[2021-01-22] MEDS: Oxybutynin 5 MG Tab PO SCH ×2 (10:08→21:10)
[2021-01-22] MEDS: Aspirin 81 MG Tab.EC PO SCH (10:09)
[2021-01-22] MEDS: Citalopram 20 MG Tab PO SCH (10:09)
[2021-01-22] MEDS: Enoxaparin 40 MG/0.4 ML Syringe SUBCUT SCH (10:10)
[2021-01-22] MEDS: Dexamethasone 2 MG Tab PO SCH (10:10)
[2021-01-22] MEDS: Estradiol 0.5 MG Tab PO SCH (10:10)
[2021-01-22] MEDS: Fluticasone Propionate Nasal Spray 16 GM Bottle NASBOTH SCH (10:11)
[2021-01-22] MEDS: Rosuvastatin 10 MG Tab PO SCH (10:12)
--- NOTE | 2021-01-22 10:58 | PCM.PN ---
- General Info Date of Service: 01/22/21 Subjective Update: No acute events overnight. No fevers. Oxygenation stable with 3 to 4 L of supplemental oxygen. Appetite slowly improving. Energy is a little better. Still has dyspnea and desaturation with activity. No nausea. D-dimer is now normal. C-reactive protein remains elevated but slowly trending down. She will be moved out of precautions today. Functional Status: Reports: Pain Controlled, Tolerating Diet - Review of Systems General: Reports: Weakness Pulmonary: Reports: Shortness of Breath - Patient Data Vitals - Most Recent: Last Vital Signs Temp 36.8 C 01/22/21 08:00 Pulse 69 01/22/21 08:00 Resp 22 H 01/22/21 08:00 BP 103/63 01/22/21 08:00 Pulse Ox 89 L 01/22/21 08:00 Weight - Most Recent: 92.1 kg I&O - Last 24 Hours: Intake & Output 01/21/21 01/22/21 01/22/21 22:59 06:59 14:59 Intake Total 1020 200 Output Total 900 250 200 Balance 120 -50 -200 Lab Results Last 24 Hours: Laboratory Results - last 24 hr 01/22/21 01/22/21 01/22/21 Range/Units 04:40 04:40 04:40 WBC 11.5 H (4.5-11.0) K/uL RBC 4.61 (3.30-5.50) M/uL Hgb 13.3 (12.0-15.0) g/dL Hct 40.5 (36.0-48.0) % MCV 88 (80-98) fL MCH 29 (27-31) pg MCHC 33 (32-36) % Plt Count 471 H (150-400) K/uL D-Dimer, Quantitative 335.47 (0.0-500.0) ng/mL Sodium 134 L (140-148) mmol/L Potassium 4.4 (3.6-5.2) mmol/L Chloride 101 (100-108) mmol/L Carbon Dioxide 25 (21-32) mmol/L Anion Gap 12.4 (5.0-14.0) mmol/L BUN 17 (7-18) mg/dL Creatinine 0.8 (0.6-1.0) mg/dL Est Cr Clr Drug Dosing 66.18 mL/min Estimated GFR (MDRD) > 60 (>60) Glucose 127 H (74-106) mg/dL Calcium 8.8 (8.5-10.1) mg/dL Total Bilirubin 0.5 (0.2-1.0) mg/dL AST 14 L (15-37) U/L ALT 40 (12-78) U/L Alkaline Phosphatase 128 H (46-116) U/L C-Reactive Protein 2.57 H (0.0-0.3) mg/dL Total Protein 6.4 (6.4-8.2) g/dL Albumin 2.5 L (3.4-5.0) g/dL Globulin 3.9 H (2.3-3.5) g/dL Albumin/Globulin Ratio 0.6 L (1.2-2.2) Med Orders - Current: Current Medications Acetaminophen (Tylenol) 650 mg PO Q4H PRN PRN Reason: Pain (Mild 1-3)/fever Last Admin: 01/17/21 21:49 Dose: 650 mg Documented by: Alendronate Sodium (Fosamax) 70 mg PO Zaragoza@0700 [facility] Last Admin: 01/19/21 08:37 Dose: 70 mg Documented by: Aspirin (Halfprin) 81 mg PO DAILY [facility] Last Admin: 01/22/21 10:09 Dose: 81 mg Documented by: Citalopram Hydrobromide (Celexa) 40 mg PO DAILY [facility] Last Admin: 01/22/21 10:09 Dose: 40 mg Documented by: Dexamethasone (Dexamethasone) 6 mg PO Q24H [facility] Last Admin: 01/22/21 10:10 Dose: 6 mg Documented by: Enoxaparin Sodium (Lovenox) 40 mg SUBCUT DAILY [facility] Last Admin: 01/22/21 10:10 Dose: 40 mg Documented by: Estradiol (Estradiol) 1 mg PO DAILY [facility] Last Admin: 01/22/21 10:10 Dose: 1 mg Documented by: Fluticasone Propionate (Flonase) 0 gm NASBOTH DAILY [facility] Last Admin: 01/22/21 10:11 Dose: 1 spray Documented by: Levothyroxine Sodium (Synthroid) 50 mcg PO ACBREAKFAST [facility] Last Admin: 01/22/21 07:53 Dose: 50 mcg Documented by: Medroxyprogesterone Acetate (Provera) 2.5 mg PO DAILY [facility] Last Admin: 01/22/21 10:09 Dose: 2.5 mg Documented by: Ondansetron HCl (Zofran) 4 mg IV Q4H PRN PRN Reason: Nausea/Vomiting Oxybutynin Chloride (Oxybutynin) 5 mg PO BID [facility] Last Admin: 01/22/21 10:08 Dose: 5 mg Documented by: Polyethylene Glycol (Miralax) 17 gm PO DAILY PRN PRN Reason: Constipation Rosuvastatin Calcium (Crestor) 10 mg PO DAILY [facility] Last Admin: 01/22/21 10:12 Dose: 10 mg Documented by: Sodium Chloride (Saline Flush) 10 ml FLUSH ASDIRECTED PRN PRN Reason: Keep Vein Open Trazodone HCl (Trazodone) 150 mg PO BEDTIME [facility] Discontinued Medications Dexamethasone (Decadron) 6 mg IVPUSH Q24H [facility] Last Admin: 01/20/21 10:37 Dose: 6 mg Documented by: Furosemide (Lasix) 20 mg IVPUSH NOW ONE Stop: 01/19/21 10:31 Last Admin: 01/19/21 11:14 Dose: 20 mg Documented by: Remdesivir 200 mg/ Sodium (Chloride) 250 mls @ 250 mls/hr IV ONETIME ONE Stop: 01/16/21 11:59 Last Admin: 01/16/21 14:23 Dose: 250 mls/hr Documented by: Remdesivir 100 mg/ Sodium (Chloride) 100 mls @ 100 mls/hr IV Q24H [facility] Stop: 01/20/21 11:59 Last Admin: 01/20/21 10:39 Dose: 100 mls/hr Documented by: Sodium Chloride (Normal Saline) 82 mls @ 3.5 mls/sec IV ASDIRECTED [facility] Stop: 01/20/21 10:46 Iopamidol (Isovue-300 (61%)) 140 ml IV ONETIME ONE Stop: 01/20/21 10:41 Last Admin: 01/20/21 11:45 Dose: Not Given Documented by: Potassium Chloride (Klor-Con M20) 40 meq PO ONETIME ONE Stop: 01/17/21 08:16 Last Admin: 01/17/21 09:03 Dose: 40 meq Documented by: Potassium Chloride (Klor-Con M20) 40 meq PO ONETIME ONE Stop: 01/20/21 08:31 Last Admin: 01/20/21 09:13 Dose: 40 meq Documented by: Trazodone HCl (Trazodone) 100 mg PO BEDTIME [facility] Last Admin: 01/21/21 20:55 Dose: 100 mg Documented by: - Exam Quality Assessment: Supplemental Oxygen General: Alert, Oriented, Cooperative, No Acute Distress Lungs: Normal Respiratory Effort. No: Wheezing Cardiovascular: Regular Rate, Regular Rhythm GI/Abdominal Exam: Soft, No Distention Extremities: No Pedal Edema. No: Increased Warmth Skin: Warm, Dry Psy/Mental Status: Alert, Normal Affect - Patient Data Lab Results Last 24 hrs: Laboratory Results - last 24 hr 01/22/21 01/22/21 01/22/21 Range/Units 04:40 04:40 04:40 WBC 11.5 H (4.5-11.0) K/uL RBC 4.61 (3.30-5.50) M/uL Hgb 13.3 (12.0-15.0) g/dL Hct 40.5 (36.0-48.0) % MCV 88 (80-98) fL MCH 29 (27-31) pg MCHC 33 (32-36) % Plt Count 471 H (150-400) K/uL D-Dimer, Quantitative 335.47 (0.0-500.0) ng/mL Sodium 134 L (140-148) mmol/L Potassium 4.4 (3.6-5.2) mmol/L Chloride 101 (100-108) mmol/L Carbon Dioxide 25 (21-32) mmol/L Anion Gap 12.4 (5.0-14.0) mmol/L BUN 17 (7-18) mg/dL Creatinine 0.8 (0.6-1.0) mg/dL Est Cr Clr Drug Dosing 66.18 mL/min Estimated GFR (MDRD) > 60 (>60) Glucose 127 H (74-106) mg/dL Calcium 8.8 (8.5-10.1) mg/dL Total Bilirubin 0.5 (0.2-1.0) mg/dL AST 14 L (15-37) U/L ALT 40 (12-78) U/L Alkaline Phosphatase 128 H (46-116) U/L C-Reactive Protein 2.57 H (0.0-0.3) mg/dL Total Protein 6.4 (6.4-8.2) g/dL Albumin 2.5 L (3.4-5.0) g/dL Globulin 3.9 H (2.3-3.5) g/dL Albumin/Globulin Ratio 0.6 L (1.2-2.2) Result Diagrams: 01/22/21 04:40 01/22/21 04:40 Sepsis Event Note - Evaluation Sepsis Screening Result: No Definite Risk - Focused Exam Vital Signs: Vital Signs Temp Pulse Resp BP Pulse Ox 01/22/21 08:00 36.8 C 69 22 H 103/63 89 L 01/22/21 04:00 37.2 C 48 L 20 148/69 H 92 L 01/22/21 00:00 47 L 18 115/31 L 93 L - Problem List Review Problem List Initiated/Reviewed/Updated: Yes - My Orders Last 24 Hours: My Active Orders 01/21/21 11:00 dexAMETHasone 6 mg PO Q24H 01/22/21 10:57 Communication Order [RC] ROUTINE 01/22/21 21:00 traZODone 150 mg PO BEDTIME - Plan Plan:: ASSESSMENT AND PLAN COVID-19 INFECTION-onset of symptoms on January 06. Respiratory status stable 3-4 L of supplemental oxygen. Slowly improving. She has completed treatment with remdesivir. D-dimer now normal and CRP slowly trending down. -Supportive care -Prone ventilation if possible -Supplemental oxygen as needed -Limit fluids -Remdesivir complete -Decadron 6 mg daily (day 7) -Discontinue precautions today -Labs every 2 or 3 days ACUTE HYPOXIC RESPIRATORY FAILURE-secondary to COVID-19 infection. Stable and still requiring supplemental oxygen and is stable to slowly improving. -Management as above MAINTENANCE ISSUES -DVT prophylaxis; enoxaparin -GI prophylaxis; not indicated -Bowens catheter; not indicated -Nutrition; regular diet DISPOSITION-anticipate discharge to home after the hospital stay. Yves Ulloa MD
[2021-01-22] MEDS: traZODone 50 MG Tab PO SCH (21:10)
[2021-01-23] MEDS: Levothyroxine 50 MCG Tab PO SCH (08:24)
[2021-01-23] MEDS: Oxybutynin 5 MG Tab PO SCH ×2 (08:24→20:12)
[2021-01-23] MEDS: Rosuvastatin 10 MG Tab PO SCH (08:25)
[2021-01-23] MEDS: Citalopram 20 MG Tab PO SCH (08:25)
[2021-01-23] MEDS: Estradiol 0.5 MG Tab PO SCH (08:25)
[2021-01-23] MEDS: Enoxaparin 40 MG/0.4 ML Syringe SUBCUT SCH (08:26)
[2021-01-23] MEDS: Aspirin 81 MG Tab.EC PO SCH (08:26)
[2021-01-23] MEDS: Fluticasone Propionate Nasal Spray 16 GM Bottle NASBOTH SCH (08:27)
[2021-01-23] MEDS ORDERED: Furosemide 40 MG/4 ML VIAL IVPUSH ONE (10:46)
--- NOTE | 2021-01-23 10:50 | PCM.PN ---
- General Info Date of Service: 01/23/21 Subjective Update: No acute events overnight. No fevers overnight. Oxygenation is stable and she still requiring about 4 L of oxygen. She did have an episode this morning where she desaturated but recovered fairly well with some rest. She still feels short of breath with any activity but is comfortable at rest. Appetite and energy are slowly improving. No nausea or diarrhea. Functional Status: Reports: Pain Controlled, Tolerating Diet - Review of Systems General: Reports: Weakness Pulmonary: Reports: Shortness of Breath - Patient Data Vitals - Most Recent: Last Vital Signs Temp 36.1 C 01/23/21 08:32 Pulse 68 01/23/21 08:32 Resp 20 01/23/21 08:32 BP 106/64 01/23/21 08:32 Pulse Ox 73 L 01/23/21 08:35 Weight - Most Recent: 92.1 kg I&O - Last 24 Hours: Intake & Output 01/22/21 01/23/21 01/23/21 22:59 06:59 14:59 Intake Total 480 Balance 480 Med Orders - Current: Current Medications Acetaminophen (Tylenol) 650 mg PO Q4H PRN PRN Reason: Pain (Mild 1-3)/fever Last Admin: 01/17/21 21:49 Dose: 650 mg Documented by: Alendronate Sodium (Fosamax) 70 mg PO Zaragoza@0700 [facility] Last Admin: 01/19/21 08:37 Dose: 70 mg Documented by: Aspirin (Halfprin) 81 mg PO DAILY [facility] Last Admin: 01/23/21 08:26 Dose: 81 mg Documented by: Citalopram Hydrobromide (Celexa) 40 mg PO DAILY [facility] Last Admin: 01/23/21 08:25 Dose: 40 mg Documented by: Dexamethasone (Dexamethasone) 6 mg PO Q24H [facility] Last Admin: 01/22/21 10:10 Dose: 6 mg Documented by: Enoxaparin Sodium (Lovenox) 40 mg SUBCUT DAILY [facility] Last Admin: 01/23/21 08:26 Dose: 40 mg Documented by: Estradiol (Estradiol) 1 mg PO DAILY [facility] Last Admin: 01/23/21 08:25 Dose: 1 mg Documented by: Fluticasone Propionate (Flonase) 0 gm NASBOTH DAILY [facility] Last Admin: 01/23/21 08:27 Dose: 1 spray Documented by: Furosemide (Lasix) 20 mg IVPUSH NOW ONE Stop: 01/23/21 10:47 Levothyroxine Sodium (Synthroid) 50 mcg PO ACBREAKFAST [facility] Last Admin: 01/23/21 08:24 Dose: 50 mcg Documented by: Medroxyprogesterone Acetate (Provera) 2.5 mg PO DAILY [facility] Last Admin: 01/23/21 08:25 Dose: 2.5 mg Documented by: Ondansetron HCl (Zofran) 4 mg IV Q4H PRN PRN Reason: Nausea/Vomiting Oxybutynin Chloride (Oxybutynin) 5 mg PO BID [facility] Last Admin: 01/23/21 08:24 Dose: 5 mg Documented by: Polyethylene Glycol (Miralax) 17 gm PO DAILY PRN PRN Reason: Constipation Rosuvastatin Calcium (Crestor) 10 mg PO DAILY [facility] Last Admin: 01/23/21 08:25 Dose: 10 mg Documented by: Sodium Chloride (Saline Flush) 10 ml FLUSH ASDIRECTED PRN PRN Reason: Keep Vein Open Trazodone HCl (Trazodone) 150 mg PO BEDTIME [facility] Last Admin: 01/22/21 21:10 Dose: 150 mg Documented by: Discontinued Medications Dexamethasone (Decadron) 6 mg IVPUSH Q24H [facility] Last Admin: 01/20/21 10:37 Dose: 6 mg Documented by: Furosemide (Lasix) 20 mg IVPUSH NOW ONE Stop: 01/19/21 10:31 Last Admin: 01/19/21 11:14 Dose: 20 mg Documented by: Remdesivir 200 mg/ Sodium (Chloride) 250 mls @ 250 mls/hr IV ONETIME ONE Stop: 01/16/21 11:59 Last Admin: 01/16/21 14:23 Dose: 250 mls/hr Documented by: Remdesivir 100 mg/ Sodium (Chloride) 100 mls @ 100 mls/hr IV Q24H [facility] Stop: 01/20/21 11:59 Last Admin: 01/20/21 10:39 Dose: 100 mls/hr Documented by: Sodium Chloride (Normal Saline) 82 mls @ 3.5 mls/sec IV ASDIRECTED [facility] Stop: 01/20/21 10:46 Iopamidol (Isovue-300 (61%)) 140 ml IV ONETIME ONE Stop: 01/20/21 10:41 Last Admin: 01/20/21 11:45 Dose: Not Given Documented by: Potassium Chloride (Klor-Con M20) 40 meq PO ONETIME ONE Stop: 01/17/21 08:16 Last Admin: 01/17/21 09:03 Dose: 40 meq Documented by: Potassium Chloride (Klor-Con M20) 40 meq PO ONETIME ONE Stop: 01/20/21 08:31 Last Admin: 01/20/21 09:13 Dose: 40 meq Documented by: Trazodone HCl (Trazodone) 100 mg PO BEDTIME [facility] Last Admin: 01/21/21 20:55 Dose: 100 mg Documented by: - Exam Quality Assessment: Supplemental Oxygen General: Alert, Oriented, Cooperative, No Acute Distress Lungs: Normal Respiratory Effort. No: Wheezing Cardiovascular: Regular Rate, Regular Rhythm Extremities: No Pedal Edema Skin: Warm, Dry Psy/Mental Status: Alert, Normal Affect - Patient Data Result Diagrams: 01/22/21 04:40 01/22/21 04:40 Sepsis Event Note - Evaluation Sepsis Screening Result: No Definite Risk - Focused Exam Vital Signs: Vital Signs Temp Pulse Resp BP BP Pulse Ox 01/23/21 08:35 73 L 01/23/21 08:32 36.1 C 68 20 106/64 90 L 01/23/21 08:24 82 L 01/23/21 07:15 95 01/23/21 02:00 35.9 C L 57 L 20 114/54 L 92 L 01/23/21 01:19 97 - Problem List Review Problem List Initiated/Reviewed/Updated: Yes - My Orders Last 24 Hours: My Active Orders 01/22/21 12:33 PT Evaluation and Treatment [CONS] Routine 01/22/21 21:00 traZODone 150 mg PO BEDTIME 01/23/21 10:46 Furosemide [Lasix] 20 mg IVPUSH NOW ONE 01/24/21 05:00 BASIC METABOLIC PANEL,BMP [CHEM] Timed C-REACTIVE PROTEIN [CHEM] Timed CBC W/O DIFF,HEMOGRAM [HEME] Timed (1) D-DIMER QUANTITATIVE [COAG] Timed - Plan Plan:: ASSESSMENT AND PLAN COVID-19 INFECTION-onset of symptoms on January 06. Respiratory status stable 3-4 L of supplemental oxygen. Still gets short of breath with any activity but otherwise seems to be slowly improving. -Supportive care -Prone ventilation if possible -Supplemental oxygen as needed -Limit fluids -Remdesivir complete -Decadron 6 mg daily (day 8) -Labs every 2 or 3 days ACUTE HYPOXIC RESPIRATORY FAILURE-secondary to COVID-19 infection. Stable and still requiring supplemental oxygen and is stable to slowly improving. -Management as above MAINTENANCE ISSUES -DVT prophylaxis; enoxaparin -GI prophylaxis; not indicated -Bowens catheter; not indicated -Nutrition; regular diet DISPOSITION-anticipate discharge to home after the hospital stay, probably with home oxygen Yves Ulloa MD
[2021-01-23] MEDS: Dexamethasone 2 MG Tab PO SCH (11:37)
[2021-01-23] MEDS: traZODone 50 MG Tab PO SCH (20:12)
[2021-01-24] MEDS: Levothyroxine 50 MCG Tab PO SCH (07:40)
[2021-01-24] MEDS: Aspirin 81 MG Tab.EC PO SCH (08:44)
[2021-01-24] MEDS: Estradiol 0.5 MG Tab PO SCH (08:44)
[2021-01-24] MEDS: Oxybutynin 5 MG Tab PO SCH ×2 (08:44→21:26)
[2021-01-24] MEDS: Citalopram 20 MG Tab PO SCH (08:44)
[2021-01-24] MEDS: Rosuvastatin 10 MG Tab PO SCH (08:44)
[2021-01-24] MEDS: Fluticasone Propionate Nasal Spray 16 GM Bottle NASBOTH SCH (08:45)
[2021-01-24] MEDS: Enoxaparin 40 MG/0.4 ML Syringe SUBCUT SCH (08:45)
--- NOTE | 2021-01-24 10:33 | PCM.PN ---
- General Info Date of Service: 01/24/21 Subjective Update: There were no acute events overnight. Still requiring supplemental oxygen between 3 to 4 L/min. She does get short of breath and desaturate with activity though not quite as bad. No fevers. No nausea. Appetite and energy are slowly returning. Laboratory studies show further improvement in her D-dimer and CRP. Functional Status: Reports: Pain Controlled, Tolerating Diet - Review of Systems General: Reports: Weakness Pulmonary: Reports: Shortness of Breath - Patient Data Vitals - Most Recent: Last Vital Signs Temp 35.8 C L 01/24/21 07:27 Pulse 59 L 01/24/21 07:27 Resp 16 01/24/21 07:27 BP 115/55 L 01/24/21 07:27 Pulse Ox 81 L 01/24/21 07:52 Weight - Most Recent: 89.63 kg I&O - Last 24 Hours: Intake & Output 01/23/21 01/24/21 01/24/21 22:59 06:59 14:59 Intake Total 600 296 Output Total 1300 400 200 Balance -700 -400 96 Lab Results Last 24 Hours: Laboratory Results - last 24 hr 01/24/21 01/24/21 01/24/21 Range/Units 03:56 03:56 03:56 WBC 11.0 (4.5-11.0) K/uL RBC 4.51 (3.30-5.50) M/uL Hgb 13.0 (12.0-15.0) g/dL Hct 40.1 (36.0-48.0) % MCV 89 (80-98) fL MCH 29 (27-31) pg MCHC 32 (32-36) % Plt Count 448 H (150-400) K/uL D-Dimer, Quantitative 307.39 (0.0-500.0) ng/mL Sodium 138 L (140-148) mmol/L Potassium 4.3 (3.6-5.2) mmol/L Chloride 102 (100-108) mmol/L Carbon Dioxide 26 (21-32) mmol/L Anion Gap 14.3 H (5.0-14.0) mmol/L BUN 19 H (7-18) mg/dL Creatinine 0.9 (0.6-1.0) mg/dL Est Cr Clr Drug Dosing 58.83 mL/min Estimated GFR (MDRD) > 60 (>60) Glucose 127 H (74-106) mg/dL Calcium 8.8 (8.5-10.1) mg/dL C-Reactive Protein 1.11 H (0.0-0.3) mg/dL Med Orders - Current: Current Medications Acetaminophen (Tylenol) 650 mg PO Q4H PRN PRN Reason: Pain (Mild 1-3)/fever Last Admin: 01/17/21 21:49 Dose: 650 mg Documented by: Alendronate Sodium (Fosamax) 70 mg PO Zaragoza@0700 [facility] Last Admin: 01/19/21 08:37 Dose: 70 mg Documented by: Aspirin (Halfprin) 81 mg PO DAILY [facility] Last Admin: 01/24/21 08:44 Dose: 81 mg Documented by: Citalopram Hydrobromide (Celexa) 40 mg PO DAILY [facility] Last Admin: 01/24/21 08:44 Dose: 40 mg Documented by: Dexamethasone (Dexamethasone) 6 mg PO Q24H [facility] Last Admin: 01/23/21 11:37 Dose: 6 mg Documented by: Enoxaparin Sodium (Lovenox) 40 mg SUBCUT DAILY [facility] Last Admin: 01/24/21 08:45 Dose: 40 mg Documented by: Estradiol (Estradiol) 1 mg PO DAILY [facility] Last Admin: 01/24/21 08:44 Dose: 1 mg Documented by: Fluticasone Propionate (Flonase) 0 gm NASBOTH DAILY [facility] Last Admin: 01/24/21 08:45 Dose: 1 spray Documented by: Levothyroxine Sodium (Synthroid) 50 mcg PO ACBREAKFAST [facility] Last Admin: 01/24/21 07:40 Dose: 50 mcg Documented by: Medroxyprogesterone Acetate (Provera) 2.5 mg PO DAILY [facility] Last Admin: 01/24/21 08:44 Dose: 2.5 mg Documented by: Ondansetron HCl (Zofran) 4 mg IV Q4H PRN PRN Reason: Nausea/Vomiting Oxybutynin Chloride (Oxybutynin) 5 mg PO BID [facility] Last Admin: 01/24/21 08:44 Dose: 5 mg Documented by: Polyethylene Glycol (Miralax) 17 gm PO DAILY PRN PRN Reason: Constipation Rosuvastatin Calcium (Crestor) 10 mg PO DAILY [facility] Last Admin: 01/24/21 08:44 Dose: 10 mg Documented by: Sodium Chloride (Saline Flush) 10 ml FLUSH ASDIRECTED PRN PRN Reason: Keep Vein Open Trazodone HCl (Trazodone) 150 mg PO BEDTIME [facility] Last Admin: 01/23/21 20:12 Dose: 150 mg Documented by: Discontinued Medications Dexamethasone (Decadron) 6 mg IVPUSH Q24H [facility] Last Admin: 01/20/21 10:37 Dose: 6 mg Documented by: Furosemide (Lasix) 20 mg IVPUSH NOW ONE Stop: 01/19/21 10:31 Last Admin: 01/19/21 11:14 Dose: 20 mg Documented by: Furosemide (Lasix) 20 mg IVPUSH NOW ONE Stop: 01/23/21 10:47 Last Admin: 01/23/21 11:37 Dose: 20 mg Documented by: Remdesivir 200 mg/ Sodium (Chloride) 250 mls @ 250 mls/hr IV ONETIME ONE Stop: 01/16/21 11:59 Last Admin: 01/16/21 14:23 Dose: 250 mls/hr Documented by: Remdesivir 100 mg/ Sodium (Chloride) 100 mls @ 100 mls/hr IV Q24H [facility] Stop: 01/20/21 11:59 Last Admin: 01/20/21 10:39 Dose: 100 mls/hr Documented by: Sodium Chloride (Normal Saline) 82 mls @ 3.5 mls/sec IV ASDIRECTED [facility] Stop: 01/20/21 10:46 Iopamidol (Isovue-300 (61%)) 140 ml IV ONETIME ONE Stop: 01/20/21 10:41 Last Admin: 01/20/21 11:45 Dose: Not Given Documented by: Potassium Chloride (Klor-Con M20) 40 meq PO ONETIME ONE Stop: 01/17/21 08:16 Last Admin: 01/17/21 09:03 Dose: 40 meq Documented by: Potassium Chloride (Klor-Con M20) 40 meq PO ONETIME ONE Stop: 01/20/21 08:31 Last Admin: 01/20/21 09:13 Dose: 40 meq Documented by: Trazodone HCl (Trazodone) 100 mg PO BEDTIME [facility] Last Admin: 01/21/21 20:55 Dose: 100 mg Documented by: - Exam Quality Assessment: Supplemental Oxygen General: Alert, Oriented, Cooperative, No Acute Distress Lungs: Normal Respiratory Effort GI/Abdominal Exam: No Distention Extremities: No Pedal Edema Skin: Warm, Dry Psy/Mental Status: Alert, Normal Affect - Patient Data Lab Results Last 24 hrs: Laboratory Results - last 24 hr 01/24/21 01/24/21 01/24/21 Range/Units 03:56 03:56 03:56 WBC 11.0 (4.5-11.0) K/uL RBC 4.51 (3.30-5.50) M/uL Hgb 13.0 (12.0-15.0) g/dL Hct 40.1 (36.0-48.0) % MCV 89 (80-98) fL MCH 29 (27-31) pg MCHC 32 (32-36) % Plt Count 448 H (150-400) K/uL D-Dimer, Quantitative 307.39 (0.0-500.0) ng/mL Sodium 138 L (140-148) mmol/L Potassium 4.3 (3.6-5.2) mmol/L Chloride 102 (100-108) mmol/L Carbon Dioxide 26 (21-32) mmol/L Anion Gap 14.3 H (5.0-14.0) mmol/L BUN 19 H (7-18) mg/dL Creatinine 0.9 (0.6-1.0) mg/dL Est Cr Clr Drug Dosing 58.83 mL/min Estimated GFR (MDRD) > 60 (>60) Glucose 127 H (74-106) mg/dL Calcium 8.8 (8.5-10.1) mg/dL C-Reactive Protein 1.11 H (0.0-0.3) mg/dL Result Diagrams: 01/24/21 03:56 01/24/21 03:56 Sepsis Event Note - Evaluation Sepsis Screening Result: No Definite Risk - Focused Exam Vital Signs: Vital Signs Temp Pulse Resp BP BP Pulse Ox 01/24/21 07:52 81 L 01/24/21 07:27 35.8 C L 59 L 16 115/55 L 94 L 01/24/21 07:22 94 L 01/24/21 04:00 49 L 16 125/57 L 94 L 01/24/21 01:10 95 01/23/21 22:50 35.8 C L 51 L 16 111/46 L 96 - Problem List Review Problem List Initiated/Reviewed/Updated: Yes - Plan Plan:: ASSESSMENT AND PLAN COVID-19 INFECTION-onset of symptoms on January 06. Respiratory status stable 3-4 L of supplemental oxygen. Still quite dyspneic with increased hypoxia with activity. Once this improves a little further she should be safe for discharge home. Volume status appropriate today. -Supplemental oxygen as needed -Limit fluids -Remdesivir complete -Decadron 6 mg daily (day 9) -Labs every 2 or 3 days ACUTE HYPOXIC RESPIRATORY FAILURE-secondary to COVID-19 infection. Stable and still requiring supplemental oxygen and is stable to slowly improving. -Management as above MAINTENANCE ISSUES -DVT prophylaxis; enoxaparin -GI prophylaxis; not indicated -Bowens catheter; not indicated -Nutrition; regular diet DISPOSITION-anticipate discharge to home after the hospital stay, probably with home oxygen Yves Ulloa MD
[2021-01-24] MEDS: Dexamethasone 2 MG Tab PO SCH (11:11)
[2021-01-24] MEDS: traZODone 50 MG Tab PO SCH (21:26)
[2021-01-25] MEDS: Levothyroxine 50 MCG Tab PO SCH (07:40)
[2021-01-25] MEDS: Oxybutynin 5 MG Tab PO SCH ×2 (09:13→20:52)
[2021-01-25] MEDS: Enoxaparin 40 MG/0.4 ML Syringe SUBCUT SCH (09:13)
[2021-01-25] MEDS: Aspirin 81 MG Tab.EC PO SCH (09:13)
[2021-01-25] MEDS: Rosuvastatin 10 MG Tab PO SCH (09:13)
[2021-01-25] MEDS: Citalopram 20 MG Tab PO SCH (09:13)
[2021-01-25] MEDS: Estradiol 0.5 MG Tab PO SCH (09:13)
[2021-01-25] MEDS: Fluticasone Propionate Nasal Spray 16 GM Bottle NASBOTH SCH (09:14)
--- NOTE | 2021-01-25 10:42 | PCM.PN ---
- General Info Date of Service: 01/25/21 Subjective Update: No acute events overnight. She still gets short of breath with activity and does desaturate though she seems to be recovering faster. She is currently on 3 L of oxygen with saturations in the mid 90s which is a little better than yesterday. Appetite and energy continue to slowly improve. She did tolerate a shower yesterday. No abdominal pain, nausea or diarrhea. No fevers. Functional Status: Reports: Pain Controlled, Tolerating Diet - Review of Systems General: Reports: Weakness Cardiovascular: Reports: Dyspnea on Exertion - Patient Data Vitals - Most Recent: Last Vital Signs Temp 36.2 C 01/25/21 07:20 Pulse 55 L 01/25/21 07:20 Resp 18 01/25/21 07:20 BP 127/45 L 01/25/21 07:20 Pulse Ox 95 01/25/21 07:20 Weight - Most Recent: 90.446 kg I&O - Last 24 Hours: Intake & Output 01/24/21 01/25/21 01/25/21 22:59 06:59 14:59 Intake Total 296 60 600 Output Total 250 800 50 Balance 46 -740 550 Med Orders - Current: Current Medications Acetaminophen (Tylenol) 650 mg PO Q4H PRN PRN Reason: Pain (Mild 1-3)/fever Last Admin: 01/17/21 21:49 Dose: 650 mg Documented by: Alendronate Sodium (Fosamax) 70 mg PO Zaragoza@0700 [facility] Last Admin: 01/19/21 08:37 Dose: 70 mg Documented by: Aspirin (Halfprin) 81 mg PO DAILY [facility] Last Admin: 01/25/21 09:13 Dose: 81 mg Documented by: Citalopram Hydrobromide (Celexa) 40 mg PO DAILY [facility] Last Admin: 01/25/21 09:13 Dose: 40 mg Documented by: Dexamethasone (Dexamethasone) 6 mg PO Q24H [facility] Last Admin: 01/24/21 11:11 Dose: 6 mg Documented by: Enoxaparin Sodium (Lovenox) 40 mg SUBCUT DAILY [facility] Last Admin: 01/25/21 09:13 Dose: 40 mg Documented by: Estradiol (Estradiol) 1 mg PO DAILY [facility] Last Admin: 01/25/21 09:13 Dose: 1 mg Documented by: Fluticasone Propionate (Flonase) 0 gm NASBOTH DAILY [facility] Last Admin: 01/25/21 09:14 Dose: 1 spray Documented by: Levothyroxine Sodium (Synthroid) 50 mcg PO ACBREAKFAST [facility] Last Admin: 01/25/21 07:40 Dose: 50 mcg Documented by: Medroxyprogesterone Acetate (Provera) 2.5 mg PO DAILY [facility] Last Admin: 01/25/21 09:13 Dose: 2.5 mg Documented by: Ondansetron HCl (Zofran) 4 mg IV Q4H PRN PRN Reason: Nausea/Vomiting Oxybutynin Chloride (Oxybutynin) 5 mg PO BID [facility] Last Admin: 01/25/21 09:13 Dose: 5 mg Documented by: Polyethylene Glycol (Miralax) 17 gm PO DAILY PRN PRN Reason: Constipation Rosuvastatin Calcium (Crestor) 10 mg PO DAILY [facility] Last Admin: 01/25/21 09:13 Dose: 10 mg Documented by: Sodium Chloride (Saline Flush) 10 ml FLUSH ASDIRECTED PRN PRN Reason: Keep Vein Open Trazodone HCl (Trazodone) 150 mg PO BEDTIME [facility] Last Admin: 01/24/21 21:26 Dose: 150 mg Documented by: Discontinued Medications Dexamethasone (Decadron) 6 mg IVPUSH Q24H [facility] Last Admin: 01/20/21 10:37 Dose: 6 mg Documented by: Furosemide (Lasix) 20 mg IVPUSH NOW ONE Stop: 01/19/21 10:31 Last Admin: 01/19/21 11:14 Dose: 20 mg Documented by: Furosemide (Lasix) 20 mg IVPUSH NOW ONE Stop: 01/23/21 10:47 Last Admin: 01/23/21 11:37 Dose: 20 mg Documented by: Remdesivir 200 mg/ Sodium (Chloride) 250 mls @ 250 mls/hr IV ONETIME ONE Stop: 01/16/21 11:59 Last Admin: 01/16/21 14:23 Dose: 250 mls/hr Documented by: Remdesivir 100 mg/ Sodium (Chloride) 100 mls @ 100 mls/hr IV Q24H [facility] Stop: 01/20/21 11:59 Last Admin: 01/20/21 10:39 Dose: 100 mls/hr Documented by: Sodium Chloride (Normal Saline) 82 mls @ 3.5 mls/sec IV ASDIRECTED [facility] Stop: 01/20/21 10:46 Iopamidol (Isovue-300 (61%)) 140 ml IV ONETIME ONE Stop: 01/20/21 10:41 Last Admin: 01/20/21 11:45 Dose: Not Given Documented by: Potassium Chloride (Klor-Con M20) 40 meq PO ONETIME ONE Stop: 01/17/21 08:16 Last Admin: 01/17/21 09:03 Dose: 40 meq Documented by: Potassium Chloride (Klor-Con M20) 40 meq PO ONETIME ONE Stop: 01/20/21 08:31 Last Admin: 01/20/21 09:13 Dose: 40 meq Documented by: Trazodone HCl (Trazodone) 100 mg PO BEDTIME [facility] Last Admin: 01/21/21 20:55 Dose: 100 mg Documented by: - Exam Quality Assessment: Supplemental Oxygen General: Alert, Oriented, Cooperative, No Acute Distress Lungs: Normal Respiratory Effort GI/Abdominal Exam: No Distention Extremities: No Pedal Edema Skin: Warm, Dry Psy/Mental Status: Alert, Normal Affect - Patient Data Result Diagrams: 01/24/21 03:56 01/24/21 03:56 Sepsis Event Note - Evaluation Sepsis Screening Result: No Definite Risk - Focused Exam Vital Signs: Vital Signs Temp Pulse Resp BP Pulse Ox Pulse Ox 01/25/21 07:20 36.2 C 55 L 18 127/45 L 95 01/25/21 07:00 95 01/25/21 02:00 51 L 18 96 95 01/25/21 01:28 96 - Problem List Review Problem List Initiated/Reviewed/Updated: Yes - Plan Plan:: ASSESSMENT AND PLAN COVID-19 INFECTION-onset of symptoms on January 06. Respiratory status stable with 3 L of supplemental oxygen. Still dyspneic and has increased hypoxia with activity. Slowly improving. -Supplemental oxygen as needed -Limit fluids -Remdesivir complete -Decadron 6 mg daily (day 10), start taper tomorrow -Labs every 2 or 3 days ACUTE HYPOXIC RESPIRATORY FAILURE-secondary to COVID-19 infection. Stable and still requiring supplemental oxygen and is stable to slowly improving. -Management as above MAINTENANCE ISSUES -DVT prophylaxis; enoxaparin -GI prophylaxis; not indicated -Bowens catheter; not indicated -Nutrition; regular diet DISPOSITION-anticipate discharge to home after the hospital stay, probably with home oxygen Yves Ulloa MD
[2021-01-25] MEDS: Dexamethasone 2 MG Tab PO SCH (10:52)
[2021-01-25] MEDS: traZODone 50 MG Tab PO SCH (20:52)
[2021-01-26] MEDS: Alendronate 70 MG Tab PO SCH (07:14)
[2021-01-26] MEDS: Dexamethasone 2 MG Tab PO SCH (08:26)
[2021-01-26] MEDS: Estradiol 0.5 MG Tab PO SCH (08:26)
[2021-01-26] MEDS: Aspirin 81 MG Tab.EC PO SCH (08:27)
[2021-01-26] MEDS: Citalopram 20 MG Tab PO SCH (08:27)
[2021-01-26] MEDS: Enoxaparin 40 MG/0.4 ML Syringe SUBCUT SCH (08:27)
[2021-01-26] MEDS: Fluticasone Propionate Nasal Spray 16 GM Bottle NASBOTH SCH (08:27)
[2021-01-26] MEDS: Rosuvastatin 10 MG Tab PO SCH (08:27)
[2021-01-26] MEDS: Oxybutynin 5 MG Tab PO SCH ×2 (08:27→20:42)
[2021-01-26] MEDS: Levothyroxine 50 MCG Tab PO SCH (08:27)
[2021-01-26] MEDS: Polyethylene Glycol 3350 Powder 17 GM Packet PO PRN (08:27)
--- NOTE | 2021-01-26 11:20 | PCM.PN ---
- General Info Date of Service: 01/26/21 Subjective Update: No acute events overnight. No fevers. She is down to 2 L of oxygen this morning. She does continue to desaturate and have increased dyspnea with activity though not as bad as previous days. She is rebounding faster as well. Appetite and energy continue to slowly improve. Other vital signs have been stable. Functional Status: Reports: Pain Controlled, Tolerating Diet - Review of Systems Pulmonary: Reports: Shortness of Breath (mild) - Patient Data Vitals - Most Recent: Last Vital Signs Temp 35.7 C L 01/26/21 10:44 Pulse 54 L 01/26/21 10:55 Resp 18 01/26/21 10:44 BP 111/59 L 01/26/21 10:44 Pulse Ox 94 L 01/26/21 10:55 Weight - Most Recent: 90.9 kg I&O - Last 24 Hours: Intake & Output 01/25/21 01/26/21 01/26/21 22:59 06:59 14:59 Intake Total 360 Output Total 400 400 Balance -40 -400 Med Orders - Current: Current Medications Acetaminophen (Tylenol) 650 mg PO Q4H PRN PRN Reason: Pain (Mild 1-3)/fever Last Admin: 01/17/21 21:49 Dose: 650 mg Documented by: Alendronate Sodium (Fosamax) 70 mg PO Zaragoza@0700 [facility] Last Admin: 01/26/21 07:14 Dose: 70 mg Documented by: Aspirin (Halfprin) 81 mg PO DAILY [facility] Last Admin: 01/26/21 08:27 Dose: 81 mg Documented by: Citalopram Hydrobromide (Celexa) 40 mg PO DAILY [facility] Last Admin: 01/26/21 08:27 Dose: 40 mg Documented by: Dexamethasone (Dexamethasone) 4 mg PO DAILY [facility] Last Admin: 01/26/21 08:26 Dose: 4 mg Documented by: Enoxaparin Sodium (Lovenox) 40 mg SUBCUT DAILY [facility] Last Admin: 01/26/21 08:27 Dose: 40 mg Documented by: Estradiol (Estradiol) 1 mg PO DAILY [facility] Last Admin: 01/26/21 08:26 Dose: 1 mg Documented by: Fluticasone Propionate (Flonase) 0 gm NASBOTH DAILY [facility] Last Admin: 01/26/21 08:27 Dose: 1 spray Documented by: Levothyroxine Sodium (Synthroid) 50 mcg PO ACBREAKFAST [facility] Last Admin: 01/26/21 08:27 Dose: 50 mcg Documented by: Medroxyprogesterone Acetate (Provera) 2.5 mg PO DAILY [facility] Last Admin: 01/26/21 08:28 Dose: 2.5 mg Documented by: Ondansetron HCl (Zofran) 4 mg IV Q4H PRN PRN Reason: Nausea/Vomiting Oxybutynin Chloride (Oxybutynin) 5 mg PO BID [facility] Last Admin: 01/26/21 08:27 Dose: 5 mg Documented by: Polyethylene Glycol (Miralax) 17 gm PO DAILY PRN PRN Reason: Constipation Last Admin: 01/26/21 08:27 Dose: 17 gm Documented by: Rosuvastatin Calcium (Crestor) 10 mg PO DAILY [facility] Last Admin: 01/26/21 08:27 Dose: 10 mg Documented by: Sodium Chloride (Saline Flush) 10 ml FLUSH ASDIRECTED PRN PRN Reason: Keep Vein Open Trazodone HCl (Trazodone) 150 mg PO BEDTIME [facility] Last Admin: 01/25/21 20:52 Dose: 150 mg Documented by: Discontinued Medications Dexamethasone (Decadron) 6 mg IVPUSH Q24H [facility] Last Admin: 01/20/21 10:37 Dose: 6 mg Documented by: Dexamethasone (Dexamethasone) 6 mg PO Q24H [facility] Last Admin: 01/25/21 10:52 Dose: 6 mg Documented by: Furosemide (Lasix) 20 mg IVPUSH NOW ONE Stop: 01/19/21 10:31 Last Admin: 01/19/21 11:14 Dose: 20 mg Documented by: Furosemide (Lasix) 20 mg IVPUSH NOW ONE Stop: 01/23/21 10:47 Last Admin: 01/23/21 11:37 Dose: 20 mg Documented by: Remdesivir 200 mg/ Sodium (Chloride) 250 mls @ 250 mls/hr IV ONETIME ONE Stop: 01/16/21 11:59 Last Admin: 01/16/21 14:23 Dose: 250 mls/hr Documented by: Remdesivir 100 mg/ Sodium (Chloride) 100 mls @ 100 mls/hr IV Q24H [facility] Stop: 01/20/21 11:59 Last Admin: 01/20/21 10:39 Dose: 100 mls/hr Documented by: Sodium Chloride (Normal Saline) 82 mls @ 3.5 mls/sec IV ASDIRECTED [facility] Stop: 01/20/21 10:46 Iopamidol (Isovue-300 (61%)) 140 ml IV ONETIME ONE Stop: 01/20/21 10:41 Last Admin: 01/20/21 11:45 Dose: Not Given Documented by: Potassium Chloride (Klor-Con M20) 40 meq PO ONETIME ONE Stop: 01/17/21 08:16 Last Admin: 01/17/21 09:03 Dose: 40 meq Documented by: Potassium Chloride (Klor-Con M20) 40 meq PO ONETIME ONE Stop: 01/20/21 08:31 Last Admin: 01/20/21 09:13 Dose: 40 meq Documented by: Trazodone HCl (Trazodone) 100 mg PO BEDTIME [facility] Last Admin: 01/21/21 20:55 Dose: 100 mg Documented by: - Exam Quality Assessment: Supplemental Oxygen General: Alert, Oriented, Cooperative, No Acute Distress Lungs: Normal Respiratory Effort GI/Abdominal Exam: No Distention Extremities: No Pedal Edema Skin: Warm, Dry Psy/Mental Status: Alert, Normal Affect - Patient Data Result Diagrams: 01/24/21 03:56 01/24/21 03:56 Sepsis Event Note - Evaluation Sepsis Screening Result: No Definite Risk - Focused Exam Vital Signs: Vital Signs Temp Pulse Resp BP BP Pulse Ox 01/26/21 10:55 54 L 94 L 01/26/21 10:44 35.7 C L 65 18 111/59 L 95 01/26/21 08:46 55 L 96 01/26/21 07:19 88 L 01/26/21 07:00 35.9 C L 68 20 114/55 L 95 01/26/21 03:35 36.2 C 53 L 20 129/44 L 93 L 01/26/21 00:47 95 - Problem List Review Problem List Initiated/Reviewed/Updated: Yes - My Orders Last 24 Hours: My Active Orders 01/26/21 09:00 dexAMETHasone 4 mg PO DAILY 01/27/21 05:00 BASIC METABOLIC PANEL,BMP [CHEM] Timed C-REACTIVE PROTEIN [CHEM] Timed CBC W/O DIFF,HEMOGRAM [HEME] Timed (1) D-DIMER QUANTITATIVE [COAG] Timed - Plan Plan:: ASSESSMENT AND PLAN COVID-19 INFECTION-onset of symptoms on January 06. Respiratory status slowly improving and she is now down to 2 L of supplemental oxygen. Still dyspneic and hypoxic with activity but slowly getting better. Volume status is appropriate. -Supplemental oxygen as needed -Limit fluids -Remdesivir complete -Decadron taper started today -Labs in the morning ACUTE HYPOXIC RESPIRATORY FAILURE-secondary to COVID-19 infection. Slowly improving with smaller amount of supplemental oxygen required. -Management as above MAINTENANCE ISSUES -DVT prophylaxis; enoxaparin -GI prophylaxis; not indicated -Bowens catheter; not indicated -Nutrition; regular diet DISPOSITION-anticipate discharge to home after the hospital stay, probably with home oxygen Yves Ulloa MD
[2021-01-26] MEDS: traZODone 50 MG Tab PO SCH (20:42)
[2021-01-27] MEDS: Levothyroxine 50 MCG Tab PO SCH (07:24)
[2021-01-27] MEDS: Rosuvastatin 10 MG Tab PO SCH (09:09)
[2021-01-27] MEDS: Citalopram 20 MG Tab PO SCH (09:09)
[2021-01-27] MEDS: Aspirin 81 MG Tab.EC PO SCH (09:10)
[2021-01-27] MEDS: Estradiol 0.5 MG Tab PO SCH (09:10)
[2021-01-27] MEDS: Enoxaparin 40 MG/0.4 ML Syringe SUBCUT SCH (09:11)
[2021-01-27] MEDS: Oxybutynin 5 MG Tab PO SCH ×2 (09:11→21:13)
[2021-01-27] MEDS: Dexamethasone 2 MG Tab PO SCH (09:12)
[2021-01-27] MEDS: Fluticasone Propionate Nasal Spray 16 GM Bottle NASBOTH SCH (09:12)
--- NOTE | 2021-01-27 10:41 | PCM.PN ---
- General Info Date of Service: 01/27/21 Subjective Update: Ms. Mcguire has been stable since yesterday and has continued to experience slow improvement in oxygenation. Overall energy level and appetite seem to be slowly improving. Functional Status: Reports: Tolerating Diet, Ambulating, Urinating - Review of Systems General: Reports: Weakness, Fatigue. Denies: Fever, Chills Pulmonary: Reports: Shortness of Breath. Denies: Pleuritic Chest Pain, Cough, Sputum, Hemoptysis, Wheezing Cardiovascular: Reports: Dyspnea on Exertion. Denies: Chest Pain, Palpitations, Orthopnea, PND, Edema, Lightheadedness Gastrointestinal: Reports: No Symptoms - Patient Data Vitals - Most Recent: Last Vital Signs Temp 96.4 F L 01/27/21 07:16 Pulse 61 01/27/21 07:16 Resp 20 01/27/21 07:16 BP 106/73 01/27/21 07:16 Pulse Ox 1 L 01/27/21 07:16 Weight - Most Recent: 199 lb 12.8 oz I&O - Last 24 Hours: Intake & Output 01/26/21 01/27/21 01/27/21 22:59 06:59 14:59 Intake Total 350 Output Total 300 Balance 350 -300 Lab Results Last 24 Hours: Laboratory Results - last 24 hr 01/27/21 01/27/21 01/27/21 Range/Units 04:25 04:25 04:25 WBC 11.9 H (4.5-11.0) K/uL RBC 4.72 (3.30-5.50) M/uL Hgb 13.5 (12.0-15.0) g/dL Hct 42.4 (36.0-48.0) % MCV 90 (80-98) fL MCH 29 (27-31) pg MCHC 32 (32-36) % Plt Count 375 (150-400) K/uL D-Dimer, Quantitative 342.42 (0.0-500.0) ng/mL Sodium 138 L (140-148) mmol/L Potassium 4.5 (3.6-5.2) mmol/L Chloride 103 (100-108) mmol/L Carbon Dioxide 29 (21-32) mmol/L Anion Gap 10.5 (5.0-14.0) mmol/L BUN 15 (7-18) mg/dL Creatinine 0.9 (0.6-1.0) mg/dL Est Cr Clr Drug Dosing 58.83 mL/min Estimated GFR (MDRD) > 60 (>60) Glucose 102 (74-106) mg/dL Calcium 8.9 (8.5-10.1) mg/dL C-Reactive Protein 0.26 (0.0-0.3) mg/dL Med Orders - Current: Current Medications Acetaminophen (Tylenol) 650 mg PO Q4H PRN PRN Reason: Pain (Mild 1-3)/fever Last Admin: 01/17/21 21:49 Dose: 650 mg Documented by: Alendronate Sodium (Fosamax) 70 mg PO Zaragoza@0700 [facility] Last Admin: 01/26/21 07:14 Dose: 70 mg Documented by: Aspirin (Halfprin) 81 mg PO DAILY [facility] Last Admin: 01/27/21 09:10 Dose: 81 mg Documented by: Citalopram Hydrobromide (Celexa) 40 mg PO DAILY [facility] Last Admin: 01/27/21 09:09 Dose: 40 mg Documented by: Dexamethasone (Dexamethasone) 4 mg PO DAILY [facility] Last Admin: 01/27/21 09:12 Dose: 4 mg Documented by: Enoxaparin Sodium (Lovenox) 40 mg SUBCUT DAILY [facility] Last Admin: 01/27/21 09:11 Dose: 40 mg Documented by: Estradiol (Estradiol) 1 mg PO DAILY [facility] Last Admin: 01/27/21 09:10 Dose: 1 mg Documented by: Fluticasone Propionate (Flonase) 0 gm NASBOTH DAILY [facility] Last Admin: 01/27/21 09:12 Dose: 2 spray Documented by: Levothyroxine Sodium (Synthroid) 50 mcg PO ACBREAKFAST [facility] Last Admin: 01/27/21 07:24 Dose: 50 mcg Documented by: Medroxyprogesterone Acetate (Provera) 2.5 mg PO DAILY [facility] Last Admin: 01/27/21 09:09 Dose: 2.5 mg Documented by: Ondansetron HCl (Zofran) 4 mg IV Q4H PRN PRN Reason: Nausea/Vomiting Oxybutynin Chloride (Oxybutynin) 5 mg PO BID [facility] Last Admin: 01/27/21 09:11 Dose: 5 mg Documented by: Polyethylene Glycol (Miralax) 17 gm PO DAILY PRN PRN Reason: Constipation Last Admin: 01/26/21 08:27 Dose: 17 gm Documented by: Rosuvastatin Calcium (Crestor) 10 mg PO DAILY [facility] Last Admin: 01/27/21 09:09 Dose: 10 mg Documented by: Sodium Chloride (Saline Flush) 10 ml FLUSH ASDIRECTED PRN PRN Reason: Keep Vein Open Trazodone HCl (Trazodone) 150 mg PO BEDTIME [facility] Last Admin: 01/26/21 20:42 Dose: 150 mg Documented by: Discontinued Medications Dexamethasone (Decadron) 6 mg IVPUSH Q24H [facility] Last Admin: 01/20/21 10:37 Dose: 6 mg Documented by: Dexamethasone (Dexamethasone) 6 mg PO Q24H [facility] Last Admin: 01/25/21 10:52 Dose: 6 mg Documented by: Furosemide (Lasix) 20 mg IVPUSH NOW ONE Stop: 01/19/21 10:31 Last Admin: 01/19/21 11:14 Dose: 20 mg Documented by: Furosemide (Lasix) 20 mg IVPUSH NOW ONE Stop: 01/23/21 10:47 Last Admin: 01/23/21 11:37 Dose: 20 mg Documented by: Remdesivir 200 mg/ Sodium (Chloride) 250 mls @ 250 mls/hr IV ONETIME ONE Stop: 01/16/21 11:59 Last Admin: 01/16/21 14:23 Dose: 250 mls/hr Documented by: Remdesivir 100 mg/ Sodium (Chloride) 100 mls @ 100 mls/hr IV Q24H [facility] Stop: 01/20/21 11:59 Last Admin: 01/20/21 10:39 Dose: 100 mls/hr Documented by: Sodium Chloride (Normal Saline) 82 mls @ 3.5 mls/sec IV ASDIRECTED [facility] Stop: 01/20/21 10:46 Iopamidol (Isovue-300 (61%)) 140 ml IV ONETIME ONE Stop: 01/20/21 10:41 Last Admin: 01/20/21 11:45 Dose: Not Given Documented by: Potassium Chloride (Klor-Con M20) 40 meq PO ONETIME ONE Stop: 01/17/21 08:16 Last Admin: 01/17/21 09:03 Dose: 40 meq Documented by: Potassium Chloride (Klor-Con M20) 40 meq PO ONETIME ONE Stop: 01/20/21 08:31 Last Admin: 01/20/21 09:13 Dose: 40 meq Documented by: Trazodone HCl (Trazodone) 100 mg PO BEDTIME [facility] Last Admin: 01/21/21 20:55 Dose: 100 mg Documented by: - Exam Quality Assessment: Supplemental Oxygen, DVT Prophylaxis Lungs: Clear to Auscultation, Normal Respiratory Effort Cardiovascular: Regular Rate, Regular Rhythm, No Murmurs GI/Abdominal Exam: Soft, Non-Tender, No Organomegaly, No Distention Extremities: Non-Tender, No Pedal Edema - Patient Data Lab Results Last 24 hrs: Laboratory Results - last 24 hr 01/27/21 01/27/21 01/27/21 Range/Units 04:25 04:25 04:25 WBC 11.9 H (4.5-11.0) K/uL RBC 4.72 (3.30-5.50) M/uL Hgb 13.5 (12.0-15.0) g/dL Hct 42.4 (36.0-48.0) % MCV 90 (80-98) fL MCH 29 (27-31) pg MCHC 32 (32-36) % Plt Count 375 (150-400) K/uL D-Dimer, Quantitative 342.42 (0.0-500.0) ng/mL Sodium 138 L (140-148) mmol/L Potassium 4.5 (3.6-5.2) mmol/L Chloride 103 (100-108) mmol/L Carbon Dioxide 29 (21-32) mmol/L Anion Gap 10.5 (5.0-14.0) mmol/L BUN 15 (7-18) mg/dL Creatinine 0.9 (0.6-1.0) mg/dL Est Cr Clr Drug Dosing 58.83 mL/min Estimated GFR (MDRD) > 60 (>60) Glucose 102 (74-106) mg/dL Calcium 8.9 (8.5-10.1) mg/dL C-Reactive Protein 0.26 (0.0-0.3) mg/dL Result Diagrams: 01/27/21 04:25 01/27/21 04:25 Sepsis Event Note - Evaluation Sepsis Screening Result: No Definite Risk - Focused Exam Vital Signs: Vital Signs Temp Pulse Resp BP BP Pulse Ox 01/27/21 07:16 96.4 F L 61 20 106/73 1 L 01/27/21 07:03 96 01/27/21 06:00 95 01/27/21 04:23 92 L 01/27/21 04:17 96.4 F L 76 16 121/60 90 L 01/27/21 01:13 94 L 01/26/21 23:11 94 L 01/26/21 22:41 95.9 F L 57 L 16 123/47 L 95 - Problem List Review Problem List Initiated/Reviewed/Updated: Yes - Plan Plan:: ASSESSMENT AND PLAN COVID-19 INFECTION-onset of symptoms on January 06. Respiratory status slowly improving and she is now down to 1 L of supplemental oxygen. Still dyspneic and hypoxic with activity but slowly getting better. Volume status is appropriate. -Supplemental oxygen as needed -Limit fluids -Remdesivir complete -Decadron taper currently at 4 mg daily, day 2 -Labs in the morning ACUTE HYPOXIC RESPIRATORY FAILURE-secondary to COVID-19 infection. Slowly improving with smaller amount of supplemental oxygen required. -Management as above MAINTENANCE ISSUES -DVT prophylaxis; enoxaparin -GI prophylaxis; not indicated -Bowens catheter; not indicated -Nutrition; regular diet DISPOSITION-anticipate discharge to home after the hospital stay, probably with home oxygen
[2021-01-27] MEDS: traZODone 50 MG Tab PO SCH (21:13)
[2021-01-28] MEDS: Levothyroxine 50 MCG Tab PO SCH (07:35)
[2021-01-28] MEDS: Enoxaparin 40 MG/0.4 ML Syringe SUBCUT SCH (08:32)
[2021-01-28] MEDS: Fluticasone Propionate Nasal Spray 16 GM Bottle NASBOTH SCH (08:32)
[2021-01-28] MEDS: Oxybutynin 5 MG Tab PO SCH ×2 (08:32→20:12)
[2021-01-28] MEDS: Aspirin 81 MG Tab.EC PO SCH (08:33)
[2021-01-28] MEDS: Citalopram 20 MG Tab PO SCH (08:33)
[2021-01-28] MEDS: Estradiol 0.5 MG Tab PO SCH (08:33)
[2021-01-28] MEDS: Rosuvastatin 10 MG Tab PO SCH (08:33)
[2021-01-28] MEDS: Dexamethasone 2 MG Tab PO SCH (08:33)
[2021-01-28] MEDS: Polyethylene Glycol 3350 Powder 17 GM Packet PO PRN (08:40)
--- NOTE | 2021-01-28 10:39 | PCM.PN ---
- General Info Date of Service: 01/28/21 Subjective Update: Ms. Mcguire has been stable since yesterday. Although she is not feeling as strong and energetic as she had yesterday. Denies significant change in level of dyspn ea. She recovers now more quickly with activity, still requires supplemental oxygen. Functional Status: Reports: Tolerating Diet, Ambulating, Urinating - Review of Systems General: Reports: Weakness, Fatigue. Denies: Fever, Chills Pulmonary: Reports: Shortness of Breath. Denies: Pleuritic Chest Pain, Cough, Sputum, Hemoptysis, Wheezing Cardiovascular: Reports: Dyspnea on Exertion. Denies: Chest Pain, Palpitations, Orthopnea, PND, Edema Gastrointestinal: Reports: No Symptoms - Patient Data Vitals - Most Recent: Last Vital Signs Temp 96.2 F L 01/28/21 07:35 Pulse 71 01/28/21 07:35 Resp 18 01/28/21 07:35 BP 98/53 L 01/28/21 07:35 Pulse Ox 91 L 01/28/21 07:35 Weight - Most Recent: 198 lb 9.6 oz I&O - Last 24 Hours: Intake & Output 01/27/21 01/28/21 01/28/21 22:59 06:59 14:59 Intake Total 480 240 Output Total 550 400 Balance -70 -160 Med Orders - Current: Current Medications Acetaminophen (Tylenol) 650 mg PO Q4H PRN PRN Reason: Pain (Mild 1-3)/fever Last Admin: 01/17/21 21:49 Dose: 650 mg Documented by: Alendronate Sodium (Fosamax) 70 mg PO Zaragoza@0700 [facility] Last Admin: 01/26/21 07:14 Dose: 70 mg Documented by: Aspirin (Halfprin) 81 mg PO DAILY [facility] Last Admin: 01/28/21 08:33 Dose: 81 mg Documented by: Citalopram Hydrobromide (Celexa) 40 mg PO DAILY [facility] Last Admin: 01/28/21 08:33 Dose: 40 mg Documented by: Dexamethasone (Dexamethasone) 4 mg PO DAILY [facility] Last Admin: 01/28/21 08:33 Dose: 4 mg Documented by: Enoxaparin Sodium (Lovenox) 40 mg SUBCUT DAILY [facility] Last Admin: 01/28/21 08:32 Dose: 40 mg Documented by: Estradiol (Estradiol) 1 mg PO DAILY [facility] Last Admin: 01/28/21 08:33 Dose: 1 mg Documented by: Fluticasone Propionate (Flonase) 0 gm NASBOTH DAILY [facility] Last Admin: 01/28/21 08:32 Dose: 1 spray Documented by: Levothyroxine Sodium (Synthroid) 50 mcg PO ACBREAKFAST [facility] Last Admin: 01/28/21 07:35 Dose: 50 mcg Documented by: Medroxyprogesterone Acetate (Provera) 2.5 mg PO DAILY [facility] Last Admin: 01/28/21 08:33 Dose: 2.5 mg Documented by: Ondansetron HCl (Zofran) 4 mg IV Q4H PRN PRN Reason: Nausea/Vomiting Oxybutynin Chloride (Oxybutynin) 5 mg PO BID [facility] Last Admin: 01/28/21 08:32 Dose: 5 mg Documented by: Polyethylene Glycol (Miralax) 17 gm PO DAILY PRN PRN Reason: Constipation Last Admin: 01/28/21 08:40 Dose: 17 gm Documented by: Rosuvastatin Calcium (Crestor) 10 mg PO DAILY [facility] Last Admin: 01/28/21 08:33 Dose: 10 mg Documented by: Sodium Chloride (Saline Flush) 10 ml FLUSH ASDIRECTED PRN PRN Reason: Keep Vein Open Trazodone HCl (Trazodone) 150 mg PO BEDTIME [facility] Last Admin: 01/27/21 21:13 Dose: 150 mg Documented by: Discontinued Medications Dexamethasone (Decadron) 6 mg IVPUSH Q24H [facility] Last Admin: 01/20/21 10:37 Dose: 6 mg Documented by: Dexamethasone (Dexamethasone) 6 mg PO Q24H [facility] Last Admin: 01/25/21 10:52 Dose: 6 mg Documented by: Furosemide (Lasix) 20 mg IVPUSH NOW ONE Stop: 01/19/21 10:31 Last Admin: 01/19/21 11:14 Dose: 20 mg Documented by: Furosemide (Lasix) 20 mg IVPUSH NOW ONE Stop: 01/23/21 10:47 Last Admin: 01/23/21 11:37 Dose: 20 mg Documented by: Remdesivir 200 mg/ Sodium (Chloride) 250 mls @ 250 mls/hr IV ONETIME ONE Stop: 01/16/21 11:59 Last Admin: 01/16/21 14:23 Dose: 250 mls/hr Documented by: Remdesivir 100 mg/ Sodium (Chloride) 100 mls @ 100 mls/hr IV Q24H [facility] Stop: 01/20/21 11:59 Last Admin: 01/20/21 10:39 Dose: 100 mls/hr Documented by: Sodium Chloride (Normal Saline) 82 mls @ 3.5 mls/sec IV ASDIRECTED [facility] Stop: 01/20/21 10:46 Iopamidol (Isovue-300 (61%)) 140 ml IV ONETIME ONE Stop: 01/20/21 10:41 Last Admin: 01/20/21 11:45 Dose: Not Given Documented by: Potassium Chloride (Klor-Con M20) 40 meq PO ONETIME ONE Stop: 01/17/21 08:16 Last Admin: 01/17/21 09:03 Dose: 40 meq Documented by: Potassium Chloride (Klor-Con M20) 40 meq PO ONETIME ONE Stop: 01/20/21 08:31 Last Admin: 01/20/21 09:13 Dose: 40 meq Documented by: Trazodone HCl (Trazodone) 100 mg PO BEDTIME [facility] Last Admin: 01/21/21 20:55 Dose: 100 mg Documented by: - Exam Quality Assessment: Supplemental Oxygen, DVT Prophylaxis General: Alert, Oriented, Cooperative, Mild Distress Lungs: Clear to Auscultation, Normal Respiratory Effort Cardiovascular: Regular Rate, Regular Rhythm, No Murmurs GI/Abdominal Exam: Soft, Non-Tender, No Organomegaly, No Distention Extremities: Non-Tender, No Pedal Edema - Patient Data Result Diagrams: 01/27/21 04:25 01/27/21 04:25 Sepsis Event Note - Evaluation Sepsis Screening Result: No Definite Risk - Focused Exam Vital Signs: Vital Signs Temp Pulse Resp BP BP Pulse Ox 01/28/21 07:35 96.2 F L 71 18 98/53 L 91 L 01/28/21 07:22 92 L 01/28/21 07:15 18 01/28/21 04:00 96.3 F L 66 18 106/57 L 91 L 01/28/21 01:30 96 01/27/21 23:44 94.9 F L 41 L 18 154/64 H 95 - Problem List Review Problem List Initiated/Reviewed/Updated: Yes - Plan Plan:: ASSESSMENT AND PLAN COVID-19 INFECTION-onset of symptoms on January 06. Respiratory status slowly improving and she is now down to 2 L of supplemental oxygen. Still dyspneic and hypoxic with activity but slowly getting better. Volume status is appropriate. -Supplemental oxygen as needed -Limit fluids -Remdesivir complete -Decadron taper currently at 4 mg daily, day 3 -Labs in the morning ACUTE HYPOXIC RESPIRATORY FAILURE-secondary to COVID-19 infection. Slowly improving with smaller amount of supplemental oxygen required. -Management as above MAINTENANCE ISSUES -DVT prophylaxis; enoxaparin -GI prophylaxis; not indicated -Bowens catheter; not indicated -Nutrition; regular diet DISPOSITION-anticipate discharge to home after the hospital stay, probably with home oxygen
[2021-01-28] MEDS: traZODone 50 MG Tab PO SCH (20:12)
[2021-01-29] MEDS: Levothyroxine 50 MCG Tab PO SCH (07:15)
[2021-01-29] MEDS: Fluticasone Propionate Nasal Spray 16 GM Bottle NASBOTH SCH (08:51)
[2021-01-29] MEDS: Enoxaparin 40 MG/0.4 ML Syringe SUBCUT SCH (08:51)
[2021-01-29] MEDS: Citalopram 20 MG Tab PO SCH (08:51)
[2021-01-29] MEDS: Oxybutynin 5 MG Tab PO SCH (08:51)
[2021-01-29] MEDS: Estradiol 0.5 MG Tab PO SCH (08:51)
[2021-01-29] MEDS: Rosuvastatin 10 MG Tab PO SCH (08:51)
[2021-01-29] MEDS: Aspirin 81 MG Tab.EC PO SCH (08:51)
[2021-01-29] MEDS ORDERED: Dexamethasone 2 MG Tab PO SCH (09:00)
--- NOTE | 2021-01-29 09:46 | PCM.DCSUM1 ---
Discharge Summary - Hospital Course Brief History: Ms. Mcguire is a 65-year-old woman who was admitted through the emergency department with weakness, shortness of breath, and hypoxia, secondary to COVID-19 infection and ARDS - Discharge Data Discharge Date: 01/29/21 Discharge Disposition: Home, W Home Health Agency 06 Condition: Fair - Referral to Home Health Date of Face to Face Encounter: 01/29/21 Reason for Homebound Status: COVID-19 infection, hypoxia, weakness Primary Care Physician: Anamika Pena CNM Skilled Need: Nursing, physical therapy, Occupational Therapy - Discharge Diagnosis/Problem(s) (1) ARDS (adult respiratory distress syndrome) SNOMED Code(s): 80007141, 50932429 ICD Code: J80 - ACUTE RESPIRATORY DISTRESS SYNDROME Status: Acute Current Visit: Yes (2) Acute respiratory failure with hypoxia SNOMED Code(s): 98921395, 137398145 ICD Code: J96.01 - ACUTE RESPIRATORY FAILURE WITH HYPOXIA Status: Acute Current Visit: Yes (3) COVID-19 SNOMED Code(s): 030173228 ICD Code: U07.1 - COVID-19 Status: Acute Current Visit: Yes (4) Pneumonia due to 2019 novel coronavirus SNOMED Code(s): 293590423508787253 ICD Code: U07.1 - COVID-19; J12.82 - PNEUMONIA DUE TO CORONAVIRUS DISEASE 2019 Status: Acute Current Visit: Yes - Patient Summary/Data Consults: Consultations 01/22/21 12:33 PT Evaluation and Treatment [CONS] Routine Please Evaluate and Treat. PT Reason for Consult: Strengthening This query below is only for informational purposes and is not editable. Admission Diagnosis/Problem: Hypoxia Hospital Course: Ms. Mcguire is a 65-year-old woman who was admitted through the emergency department with progressive weakness, shortness of breath, hypoxia, secondary to COVID-19. She had symptoms of infection 11 days including progressive weakness, anorexia, and progressive shortness of breath. Shortness of breath has been significantly worse over the past few days and was severe this morning. She was brought into the emergency department via EMS. On arrival in the emergency department was noted to be hypoxic with saturations in the mid 80s on room air and an increased respiratory rate. COVID-19 testing is positive and chest x-ray does show faint infiltrates. She did not receive IV fluids in the emergency department or after admission. On admission she was placed on supplemental oxygen and continued to require this throughout the rest of her hospital stay. During her hospital course she did receive intermittent doses of furosemide to maintain adequate fluid balance. On admission she was started on remdesivir and completed a 5-day course of this. She was also started on dexamethasone 6 mg IV daily. By the time of discharge she had been converted to oral dexamethasone and started a taper of the oral medication. On discharge she will be on 2 mg of dexamethasone for 4 days and then 1 mg for an additional 4 days before it is discontinued. Time of discharge she was still requiring 2 L of oxygen via nasal cannula to maintain adequate oxygenation. On the day of discharge she did have an oxygen saturation of 88% on room air. She will be discharged home with supplemental oxygen for the next several weeks. Follow-up appointment will be scheduled with her primary care provider within 1 week. Home care services will be arranged to include home physical therapy and Occupational Therapy. - Patient Instructions Diet: Usual Diet as Tolerated Activity: As Tolerated Other/Special Instructions: Please arrange for home oxygen 2 L/min via nasal cannula. Please schedule follow-up appointment with primary care provider within 1 week. Please arrange for home care services including home physical therapy and Occupational Therapy. - Discharge Plan *PRESCRIPTION DRUG MONITORING PROGRAM REVIEWED*: Not Applicable *COPY OF PRESCRIPTION DRUG MONITORING REPORT IN PATIENT PATRICIA: Not Applicable Prescriptions/Med Rec: dexAMETHasone [Dexamethasone] 2 mg PO DAILY #12 tab Home Medications: Home Meds estradioL [Estradiol] 1 mg PO DAILY 02/28/18 [History] medroxyPROGESTERone [Provera] 2.5 mg PO DAILY 02/28/18 [History] Aspirin [Halfprin] 81 mg PO DAILY 06/06/18 [History] Lutein/Minerals/Vit A,C & E [Ocuvite] 1 tab PO DAILY 06/06/18 [History] traZODone HCl [Trazodone HCl] 100 mg PO BEDTIME 06/06/18 [History] Alendronate Sodium [Fosamax] 70 mg PO WEEKLY 12/05/19 [History] Calcium Carbonate/Vitamin D3 [Calcium 600 + Vit D Tablet] 2 tab PO DAILY 12/05/19 [History] Levothyroxine 50 mcg PO ACBREAKFAST 08/20/20 [History] Rosuvastatin [Crestor] 10 mg PO DAILY 08/20/20 [History] Oxybutynin 5 mg PO BID 10/17/20 [History] Citalopram [Citalopram HBr] 40 mg PO DAILY 01/16/21 [History] dexAMETHasone [Dexamethasone] 2 mg PO DAILY #12 tab 01/29/21 [Rx] Oxygen Therapy Mode: Nasal Cannula Oxygen Flow Rate (L/min): 2 Maintain SpO2% greater than: 90 Referrals: Anamika Pena CNM [Primary Care Provider] - 02/05/21 1:30 pm (Please arrive 15 minutes early to register for appointment.) - Discharge Summary/Plan Comment DC Time >30 min.: No - Patient Data Vitals - Most Recent: Last Vital Signs Temp 97.4 F 01/29/21 07:18 Pulse 73 01/29/21 07:18 Resp 16 01/29/21 07:18 BP 107/60 01/29/21 07:18 Pulse Ox 90 L 01/29/21 07:18 Weight - Most Recent: 197 lb 12.8 oz I&O - Last 24 hours: Intake & Output 01/28/21 01/29/21 01/29/21 22:59 06:59 14:59 Intake Total 1000 Output Total 1000 Balance 0 Med Orders - Current: Current Medications Acetaminophen (Tylenol) 650 mg PO Q4H PRN PRN Reason: Pain (Mild 1-3)/fever Last Admin: 01/17/21 21:49 Dose: 650 mg Documented by: Alendronate Sodium (Fosamax) 70 mg PO Zaragoza@0700 [facility] Last Admin: 01/26/21 07:14 Dose: 70 mg Documented by: Aspirin (Halfprin) 81 mg PO DAILY [facility] Last Admin: 01/29/21 08:51 Dose: 81 mg Documented by: Citalopram Hydrobromide (Celexa) 40 mg PO DAILY [facility] Last Admin: 01/29/21 08:51 Dose: 40 mg Documented by: Dexamethasone (Dexamethasone) 2 mg PO DAILY [facility] Last Admin: 01/29/21 08:51 Dose: 2 mg Documented by: Enoxaparin Sodium (Lovenox) 40 mg SUBCUT DAILY [facility] Last Admin: 01/29/21 08:51 Dose: 40 mg Documented by: Estradiol (Estradiol) 1 mg PO DAILY [facility] Last Admin: 01/29/21 08:51 Dose: 1 mg Documented by: Fluticasone Propionate (Flonase) 0 gm NASBOTH DAILY [facility] Last Admin: 01/29/21 08:51 Dose: 1 spray Documented by: Levothyroxine Sodium (Synthroid) 50 mcg PO ACBREAKFAST [facility] Last Admin: 01/29/21 07:15 Dose: 50 mcg Documented by: Medroxyprogesterone Acetate (Provera) 2.5 mg PO DAILY [facility] Last Admin: 01/29/21 08:51 Dose: 2.5 mg Documented by: Ondansetron HCl (Zofran) 4 mg IV Q4H PRN PRN Reason: Nausea/Vomiting Oxybutynin Chloride (Oxybutynin) 5 mg PO BID [facility] Last Admin: 01/29/21 08:51 Dose: 5 mg Documented by: Polyethylene Glycol (Miralax) 17 gm PO DAILY PRN PRN Reason: Constipation Last Admin: 01/28/21 08:40 Dose: 17 gm Documented by: Rosuvastatin Calcium (Crestor) 10 mg PO DAILY [facility] Last Admin: 01/29/21 08:51 Dose: 10 mg Documented by: Sodium Chloride (Saline Flush) 10 ml FLUSH ASDIRECTED PRN PRN Reason: Keep Vein Open Trazodone HCl (Trazodone) 150 mg PO BEDTIME [facility] Last Admin: 01/28/21 20:12 Dose: 150 mg Documented by: Discontinued Medications Dexamethasone (Decadron) 6 mg IVPUSH Q24H [facility] Last Admin: 01/20/21 10:37 Dose: 6 mg Documented by: Dexamethasone (Dexamethasone) 6 mg PO Q24H [facility] Last Admin: 01/25/21 10:52 Dose: 6 mg Documented by: Dexamethasone (Dexamethasone) 4 mg PO DAILY [facility] Last Admin: 01/28/21 08:33 Dose: 4 mg Documented by: Furosemide (Lasix) 20 mg IVPUSH NOW ONE Stop: 01/19/21 10:31 Last Admin: 01/19/21 11:14 Dose: 20 mg Documented by: Furosemide (Lasix) 20 mg IVPUSH NOW ONE Stop: 01/23/21 10:47 Last Admin: 01/23/21 11:37 Dose: 20 mg Documented by: Remdesivir 200 mg/ Sodium (Chloride) 250 mls @ 250 mls/hr IV ONETIME ONE Stop: 01/16/21 11:59 Last Admin: 01/16/21 14:23 Dose: 250 mls/hr Documented by: Remdesivir 100 mg/ Sodium (Chloride) 100 mls @ 100 mls/hr IV Q24H [facility] Stop: 01/20/21 11:59 Last Admin: 01/20/21 10:39 Dose: 100 mls/hr Documented by: Sodium Chloride (Normal Saline) 82 mls @ 3.5 mls/sec IV ASDIRECTED [facility] Stop: 01/20/21 10:46 Iopamidol (Isovue-300 (61%)) 140 ml IV ONETIME ONE Stop: 01/20/21 10:41 Last Admin: 01/20/21 11:45 Dose: Not Given Documented by: Potassium Chloride (Klor-Con M20) 40 meq PO ONETIME ONE Stop: 01/17/21 08:16 Last Admin: 01/17/21 09:03 Dose: 40 meq Documented by: Potassium Chloride (Klor-Con M20) 40 meq PO ONETIME ONE Stop: 01/20/21 08:31 Last Admin: 01/20/21 09:13 Dose: 40 meq Documented by: Trazodone HCl (Trazodone) 100 mg PO BEDTIME [facility] Last Admin: 01/21/21 20:55 Dose: 100 mg Documented by: - Exam Quality Assessment: Reports: Supplemental Oxygen General: Reports: Alert, Oriented, Cooperative, No Acute Distress Lungs: Reports: Clear to Auscultation, Normal Respiratory Effort Cardiovascular: Reports: Regular Rate, Regular Rhythm, No Murmurs GI/Abdominal Exam: Soft, Non-Tender, No Organomegaly, No Distention Extremities: Non-Tender, No Pedal Edema
[2021-01-29 10:35] VITALS: BP 107/51; PULSE 78
== END 2021-01-29 12:30 | disposition home health service (06) | DRG 177 ==
LOC: JP.ED 09:22 → JP.ICU 10:35 → JP.MS 01-22 11:35
PROVIDERS: ADMIT Hospitalist; ATTEND Hospitalist
DX: U07.1 COVID-19 (principal); J80 Acute respiratory distress syndrome; J12.82 Pneumonia due to coronavirus disease 2019; H54.7 Unspecified visual loss; Z96.649 Presence of unspecified artificial hip joint; Z88.2 Allergy status to sulfonamides; Z88.8 Allergy status to other drugs, medicaments and biological substances; Z79.82 Long term (current) use of aspirin; Z79.890 Hormone replacement therapy; Z79.899 Other long term (current) drug therapy; Z90.49 Acquired absence of other specified parts of digestive tract; Z87.891 Personal history of nicotine dependence; Z99.81 Dependence on supplemental oxygen
CPT/HCPCS: 0241U; 36415; 71045; 71045-26; 735622650; 73562-50; 80048; 80053; 80076; 84145; 84484; 85025; 85027; 85379; 86140; 94762; 97110-GP; 97162-GP; 97530-GP; 97535-GP; 99285; 99285-25; A9270-GY; J1100; J1650; J1940; J7050; J8540

== ENCOUNTER 2021-07-14 07:15 | Inpatient (IN) | payer MEDICARE, BC ==
[2021-07-14] MEDS ORDERED: Tranexamic Acid 920 MG in Sodium Chloride 0.9% 50 ML IV ONE (08:00)
[2021-07-14] MEDS ORDERED: Lactated Ringers 1,000 ML IV SCH (08:15)
[2021-07-14] MEDS ORDERED: Tranexamic Acid 1,000 MG in Sodium Chloride 0.9% 50 ML IV PRN (08:15)
[2021-07-14] MEDS ORDERED: ceFAZolin 2 GM in Premix Bag 1 BAG IV ONE (08:15)
[2021-07-14] MEDS ORDERED: Nozin Nasal Sanitizer NASBOTH ONE (08:15)
[2021-07-14] MEDS ORDERED: Propofol 200 MG/20 ML SDV ONE ×3 (08:32→12:09)
[2021-07-14] MEDS ORDERED: fentaNYL 100 MCG/2 ML SDV ONE (08:32)
[2021-07-14] MEDS ORDERED: Midazolam 1 MG/ML 2 ML SDV ONE (08:32)
[2021-07-14] MEDS ORDERED: Povidone-Iodine 10% Soln 118.25 ML Bottle ONE (09:35)
[2021-07-14] MEDS ORDERED: Lactated Ringers 1,000 ML ONE (11:36)
[2021-07-14] MEDS ORDERED: Magnesium Hydroxide 400 MG/5 ML Susp 30 ML Cup PO PRN (12:56)
[2021-07-14] MEDS ORDERED: Ondansetron 4 MG/2 ML SDV IVPUSH PRN (12:56)
[2021-07-14] MEDS ORDERED: Acetaminophen/HYDROcodone 325-5 MG Tab PO PRN (12:56)
[2021-07-14] MEDS ORDERED: Acetaminophen 325 MG Tab PO PRN (12:56)
[2021-07-14] MEDS ORDERED: ceFAZolin 1 GM in Sodium Chloride 0.9% 50 ML IV SCH (13:00)
[2021-07-14] MEDS ORDERED: Fluconazole 150 MG Tab PO PRN (13:02)
[2021-07-14] MEDS: Acetaminophen/oxyCODONE 325-5 MG Tab PO PRN ×4 (15:10→23:30)
[2021-07-14] MEDS: Sodium Chloride 0.9% 1,000 ML IV SCH ×2 (15:27→23:36)
[2021-07-14] MEDS: Ketorolac 30 MG/ML SDV IVPUSH PRN ×2 (15:36→23:31)
[2021-07-14] MEDS: Morphine 2 MG/ML SYRINGE IVPUSH PRN ×2 (16:38→22:15)
[2021-07-14] MEDS: ceFAZolin 1 GM in Premix Bag 1 BAG IV SCH (18:31)
[2021-07-14] MEDS ORDERED: traZODone 50 MG Tab PO SCH (21:00)
[2021-07-14] MEDS ORDERED: Docusate Sodium 100 MG Cap PO SCH (21:00)
[2021-07-14] MEDS ORDERED: Oxybutynin 5 MG Tab PO SCH (21:00)
[2021-07-14] MEDS: Ketoconazole 2% Crm 30 GM Tube TOP SCH (21:09)
[2021-07-14] MEDS: Docusate Sodium 100 MG Cap PO SCH (21:09)
[2021-07-14] MEDS: Oxybutynin 5 MG Tab PO SCH (21:10)
[2021-07-14] MEDS: traZODone 50 MG Tab PO SCH (21:11)
[2021-07-14] MEDS: Nozin Nasal Sanitizer NASBOTH SCH (21:13)
[2021-07-15] MEDS: ceFAZolin 1 GM in Premix Bag 1 BAG IV SCH ×2 (02:23→10:32)
[2021-07-15] MEDS: Acetaminophen/oxyCODONE 325-5 MG Tab PO PRN ×5 (03:43→20:47)
[2021-07-15] MEDS: Calcium Carbonate/Vitamin D3 1500 MG-400 Units Tab PO SCH (08:15)
[2021-07-15] MEDS: Nozin Nasal Sanitizer NASBOTH SCH ×2 (08:15→20:42)
[2021-07-15] MEDS: Enoxaparin 30 MG/0.3 ML Syringe SUBCUT SCH (08:16)
[2021-07-15] MEDS: Oxybutynin 5 MG Tab PO SCH ×2 (08:16→20:40)
[2021-07-15] MEDS: Estradiol 0.5 MG Tab PO SCH (08:16)
[2021-07-15] MEDS: Docusate Sodium 100 MG Cap PO SCH ×2 (08:16→20:40)
[2021-07-15] MEDS: Rosuvastatin 10 MG Tab PO SCH (08:16)
[2021-07-15] MEDS: Ketoconazole 2% Crm 30 GM Tube TOP SCH ×2 (08:18→20:40)
--- NOTE | 2021-07-15 08:35 | PCM.SURGPN ---
- General Info Date of Service: 07/15/21 Date of Surgery/Procedure: 07/14/21 POD#: 1 Post-Op Diagnosis: left knee osteoarthritis Admission Diagnosis/Problem: Knee joint operation Functional Status: Reports: Pain Controlled, Tolerating Diet - Review of Systems General: Denies: Fever, Weakness, Fatigue, Malaise, Chills Pulmonary: Denies: Shortness of Breath Cardiovascular: Denies: Chest Pain, Palpitations Gastrointestinal: Denies: Nausea, Vomiting Musculoskeletal: Reports: Leg Pain (left ), Joint Pain (left knee ), Joint Swelling (left knee ) Skin: Reports: No Symptoms Neurological: Reports: No Symptoms Psychiatric: Reports: No Symptoms - Patient Data Vitals - Most Recent: Last Vital Signs Temp 97.1 F 07/15/21 08:05 Pulse 54 L 07/15/21 08:05 Resp 16 07/15/21 08:05 BP 124/56 L 07/15/21 08:05 Pulse Ox 95 07/15/21 08:05 Weight - Most Recent: 204 lb I&O - Last 24 Hours: Intake & Output 07/14/21 07/15/21 07/15/21 22:59 06:59 14:59 Intake Total 1100 1300 Output Total 550 700 Balance 550 600 Lab Results Last 24 Hrs: Laboratory Results - last 24 hr 07/15/21 Range/Units 06:08 WBC 8.2 (4.5-11.0) K/uL RBC 3.93 (3.30-5.50) M/uL Hgb 11.7 L (12.0-15.0) g/dL Hct 35.5 L (36.0-48.0) % MCV 90 (80-98) fL MCH 30 (27-31) pg MCHC 33 (32-36) % Plt Count 221 (150-400) K/uL Med Orders - Current: Current Medications Acetaminophen (Acetaminophen 325 Mg Tab) 650 mg PO Q4H PRN PRN Reason: Pain/Fever Last Admin: 07/14/21 18:30 Dose: 650 mg Documented by: Hydrocodone Bitart/Acetaminophen (Acetaminophen/Hydrocodone 325-5 Mg Tab) 1 tab PO Q4H PRN PRN Reason: Pain (mild 1-3) Alendronate Sodium (Alendronate 70 Mg Tab) 70 mg PO Zaragoza@0700 JULITO Bandage/Support Products (Nozin Nasal Needle Grader) 1 applic NASBOTH BID [facility] Last Admin: 07/15/21 08:15 Dose: 1 applic Documented by: Calcium Carbonate (Calcium Carbonate/Vitamin D3 1500 Mg-400 Units Tab) 2 tab PO DAILY [facility] Last Admin: 07/15/21 08:15 Dose: 2 tab Documented by: Docusate Sodium (Docusate Sodium 100 Mg Cap) 100 mg PO BID [facility] Last Admin: 07/15/21 08:16 Dose: 100 mg Documented by: Enoxaparin Sodium (Enoxaparin 30 Mg/0.3 Ml Syringe) 30 mg SUBCUT DAILY [facility] Last Admin: 07/15/21 08:16 Dose: 30 mg Documented by: Estradiol (Estradiol 0.5 Mg Tab) 1 mg PO DAILY [facility] Last Admin: 07/15/21 08:16 Dose: 1 mg Documented by: Sodium Chloride (Normal Saline) 1,000 mls @ 125 mls/hr IV ASDIRECTED [facility] Last Admin: 07/14/21 23:36 Dose: 125 mls/hr Documented by: Cefazolin Sodium/Dextrose 1 gm (/ Premix) 50 mls @ 100 mls/hr IV Q8H [facility] Stop: 07/15/21 10:29 Last Admin: 07/15/21 02:23 Dose: 100 mls/hr Documented by: Ketoconazole (Ketoconazole 2% Crm 30 Gm Tube) 0 gm TOP BID [facility] Last Admin: 07/15/21 08:18 Dose: 1 applic Documented by: Ketorolac Tromethamine (Ketorolac 30 Mg/Ml Sdv) 15 mg IVPUSH Q8H PRN PRN Reason: Breakthrough Pain Last Admin: 07/14/21 23:31 Dose: 15 mg Documented by: Magnesium Hydroxide (Magnesium Hydroxide 400 Mg/5 Ml Susp 30 Ml Cup) 30 ml PO BID PRN PRN Reason: Constipation Medroxyprogesterone Acetate (Medroxyprogesterone 2.5 Mg Tab) 2.5 mg PO DAILY [facility] Last Admin: 07/15/21 08:17 Dose: 2.5 mg Documented by: Morphine Sulfate (Morphine 2 Mg/Ml Syringe) 1 mg IVPUSH Q1H PRN PRN Reason: Breakthrough Pain Last Admin: 07/14/21 22:15 Dose: 1 mg Documented by: Ondansetron HCl (Ondansetron 4 Mg/2 Ml Sdv) 4 mg IVPUSH Q4H PRN PRN Reason: Nausea/Vomiting Last Admin: 07/14/21 17:27 Dose: 4 mg Documented by: Oxybutynin Chloride (Oxybutynin 5 Mg Tab) 5 mg PO BID [facility] Last Admin: 07/15/21 08:16 Dose: 5 mg Documented by: Oxycodone/Acetaminophen (Acetaminophen/Oxycodone 325-5 Mg Tab) 1 - 2 tab PO Q4H PRN PRN Reason: Pain Last Admin: 07/15/21 07:27 Dose: 2 tab Documented by: Rosuvastatin Calcium (Rosuvastatin 10 Mg Tab) 10 mg PO DAILY [facility] Last Admin: 07/15/21 08:16 Dose: 10 mg Documented by: Thyroid (Thyroid 30 Mg Tab) 30 mg PO DAILY@0730 [facility] Last Admin: 07/15/21 07:27 Dose: 30 mg Documented by: Trazodone HCl (Trazodone 50 Mg Tab) 100 mg PO BEDTIME [facility] Last Admin: 07/14/21 21:11 Dose: 100 mg Documented by: Discontinued Medications Bandage/Support Products (Nozin Nasal Needle Grader) 1 applic NASBOTH ONETIME ONE Stop: 07/14/21 08:16 Last Admin: 07/14/21 09:24 Dose: 1 applic Documented by: Docusate Sodium (Docusate Sodium 100 Mg Cap) 100 mg PO BID [facility] Enoxaparin Sodium (Enoxaparin 30 Mg/0.3 Ml Syringe) 30 mg SUBCUT DAILY [facility] Fentanyl (Fentanyl 100 Mcg/2 Ml Sdv) Confirm Administered Dose 100 mcg .ROUTE .STK-MED ONE Stop: 07/14/21 08:33 Fluconazole (Fluconazole 150 Mg Tab) 150 mg PO DAILY PRN PRN Reason: Other Cefazolin Sodium/Dextrose 2 gm (/ Premix) 50 mls @ 100 mls/hr IV ONETIME ONE Stop: 07/14/21 08:44 Last Admin: 07/14/21 11:15 Dose: 100 mls/hr Documented by: Lactated Ringer's (Ringers, Lactated) 1,000 mls @ 75 mls/hr IV ASDIRECTED [facility] Last Admin: 07/14/21 09:51 Dose: 75 mls/hr Documented by: Tranexamic Acid 920 mg/ Sodium (Chloride) 59.2 mls @ 210 mls/hr IV ONETIME ONE Stop: 07/14/21 08:16 Last Admin: 07/14/21 11:45 Dose: 210 mls/hr Documented by: Lactated Ringer's (Ringers, Lactated) Confirm Administered Dose 1,000 mls @ as directed .ROUTE .STK-MED ONE Stop: 07/14/21 11:37 Medroxyprogesterone Acetate (Medroxyprogesterone 2.5 Mg Tab) 2.5 mg PO DAILY [facility] Midazolam HCl (Midazolam 1 Mg/Ml 2 Ml Sdv) Confirm Administered Dose 2 mg .ROUTE .STK-MED ONE Stop: 07/14/21 08:33 Non-Formulary Medication (Calcium Carbonate/Vitamin D3 [Calcium 600 + Vit D Tablet]) 2 tab PO DAILY [facility] Non-Formulary Medication (Estradiol [Estradiol]) 1 mg PO DAILY [facility] Oxybutynin Chloride (Oxybutynin 5 Mg Tab) 5 mg PO BID [facility] Povidone Iodine (Povidone-Iodine 10% Soln 118.25 Ml Bottle) Confirm Administered Dose 1 ml .ROUTE .STK-MED ONE Stop: 07/14/21 09:36 Last Admin: 07/14/21 12:00 Dose: 30 ml Documented by: Propofol (Propofol 200 Mg/20 Ml Sdv) Confirm Administered Dose 200 mg .ROUTE .STK-MED ONE Stop: 07/14/21 08:33 Propofol (Propofol 200 Mg/20 Ml Sdv) Confirm Administered Dose 200 mg .ROUTE .STK-MED ONE Stop: 07/14/21 11:55 Propofol (Propofol 200 Mg/20 Ml Sdv) Confirm Administered Dose 200 mg .ROUTE .STK-MED ONE Stop: 07/14/21 12:10 Rosuvastatin Calcium (Rosuvastatin 10 Mg Tab) 10 mg PO DAILY [facility] Thyroid (Thyroid 30 Mg Tab) 30 mg PO DAILY [facility] Trazodone HCl (Trazodone 50 Mg Tab) 100 mg PO BEDTIME JULITO - Exam Wound/Incisions: Dressing Dry and Intact, No Drainage Quality Assessment: Urine Catheter, DVT Prophylaxis General: Alert, Oriented, Cooperative, No Acute Distress Extremities: Normal Capillary Refill, Pedal Edema, Joint Swelling (left knee ), Leg Pain (left ), Limited Range of Motion (due to left knee dressing, postoperative swelling & pain ). No: Suresh's Sign Skin: Dry, Intact Neurological: No New Focal Deficit Psy/Mental Status: Alert, Normal Affect, Normal Mood Sepsis Event Note - Evaluation Sepsis Screening Result: No Definite Risk - Focused Exam Vital Signs: Vital Signs Temp Pulse Resp BP Pulse Ox 07/15/21 08:05 97.1 F 54 L 16 124/56 L 95 07/15/21 02:25 96 F L 66 16 141/60 H 94 L 07/14/21 23:00 95.8 F L 61 16 114/47 L 95 - Problem List & Annotations (1) Postoperative anemia due to acute blood loss SNOMED Code(s): 44923937406311857 Code(s): D62 - ACUTE POSTHEMORRHAGIC ANEMIA Status: Acute Current Visit: Yes (2) Status post total left knee replacement SNOMED Code(s): 6211341074176, 1355552586394 Code(s): Z96.652 - PRESENCE OF LEFT ARTIFICIAL KNEE JOINT Status: Acute Current Visit: Yes - Problem List Review Problem List Initiated/Reviewed/Updated: Yes - My Orders Last 24 Hours: Active Orders 24 hr Category Date Time Status Patient Status [ADT] Routine ADT 07/15/21 08:22 Ordered Ambulate [RC] QID Care 07/14/21 12:56 Active Antiembolic Devices [RC] .Routine Care 07/14/21 12:57 Active Head of Bed Elevation [RC] ASDIRECTED Care 07/14/21 12:56 Active Intake and Output [RC] Q12H Care 07/14/21 12:56 Active May Shower [RC] ASDIRECTED Care 07/14/21 12:56 Active Neurovascular Check [RC] Q4H Care 07/14/21 12:56 Active Notify Provider Vital Signs [RC] ASDIRECTED Care 07/14/21 12:56 Active Oxygen Therapy [RC] PRN Care 07/14/21 12:56 Active Pneumonia Education [RC] UPON Care 07/14/21 12:56 Active RT Incentive Spirometry [RC] Q1HWA Care 07/14/21 12:56 Active Up to Chair [RC] QID Care 07/14/21 12:56 Active VTE/DVT Education [RC] Click to Edit Care 07/14/21 12:57 Active Vital Signs [RC] Q4H Care 07/14/21 12:56 Active Wound Care [RC] Q12H Care 07/14/21 12:56 Active Consult to Case Management/Fluorescent Lighting Model Maker [CONS] Cons 07/14/21 12:56 Active Routine OT Evaluation and Treatment [CONS] Routine Cons 07/14/21 12:56 Active PT Evaluation and Treatment [CONS] Routine Cons 07/14/21 12:56 Active PT Evaluation and Treatment [CONS] Routine Cons 07/14/21 12:56 Active Regular Diet [DIET] Diet 07/14/21 Lunch Active Knee 1V or 2V Lt [CR] Routine Exams 07/14/21 12:56 Taken Acetaminophen [TylenoL] Med 07/14/21 12:56 Active 650 mg PO Q4H PRN Acetaminophen/HYDROcodone [[place] 325-5 MG] Med 07/14/21 12:56 Active 1 tab PO Q4H PRN Acetaminophen/oxyCODONE [Percocet 325-5 MG] Med 07/14/21 12:56 Active 1 - 2 tab PO Q4H PRN Alendronate [Fosamax] Med 07/20/21 07:00 Active 70 mg PO Zaragoza@0700 Calcium Carbonate/Vitamin D3 [Caltrate 600+D 1500 MG- Med 07/15/21 09:00 Active 400 Units] 2 tab PO DAILY Docusate Sodium [Colace] Med 07/14/21 21:00 Active 100 mg PO BID Enoxaparin [Lovenox] Med 07/15/21 09:00 Active 30 mg SUBCUT DAILY Ketoconazole [Nizoral 2% Crm] Med 07/14/21 21:00 Active 0 gm TOP BID Ketorolac [Toradol] Med 07/14/21 12:56 Active 15 mg IVPUSH Q8H PRN Magnesium Hydroxide [Milk of Magnesia] Med 07/14/21 12:56 Active 30 ml PO BID PRN Morphine Med 07/14/21 12:56 Active 1 mg IVPUSH Q1H PRN Nozin [ Nasal Needle Grader] Med 07/14/21 21:00 Active 1 applic NASBOTH BID Ondansetron [Zofran] Med 07/14/21 12:56 Active 4 mg IVPUSH Q4H PRN Oxybutynin Med 07/14/21 21:00 Active 5 mg PO BID Rosuvastatin [Crestor] Med 07/15/21 09:00 Active 10 mg PO DAILY Sodium Chloride 0.9% [Normal Saline] 1,000 ml Med 07/14/21 13:00 Active IV ASDIRECTED Thyroid [[place] Thyroid] Med 07/15/21 07:30 Active 30 mg PO DAILY@0730 ceFAZolin [Ancef 1 GM/50 ML] 1 gm Med 07/14/21 18:00 Active Premix Bag 1 bag IV Q8H estradioL Med 07/15/21 09:00 Active 1 mg PO DAILY medroxyPROGESTERone [Provera] Med 07/15/21 09:00 Active 2.5 mg PO DAILY traZODone Med 07/14/21 21:00 Active 100 mg PO BEDTIME Antiembolic Hose [OM.PC] Routine Oth 07/14/21 12:56 Ordered DVT/VTE Prophylaxis Reflex [OM.PC] Routine Oth 07/14/21 12:56 Ordered Ice Therapy [OM.PC] Per Unit Routine Oth 07/14/21 12:56 Ordered Medication Continuation Instructions [OM.PC] Per Unit Oth 07/14/21 12:56 Ordered Routine Oral Care [OM.PC] Routine Oth 07/14/21 12:56 Ordered Sequential Compression Device [OM.PC] Routine Oth 07/14/21 12:56 Ordered CHRISTIANNE Hose [Antiembolic Hose] [OM.PC] Routine Oth 07/14/21 08:15 Ordered Weight bearing status [OM.PC] Routine Oth 07/14/21 13:06 Ordered Resuscitation Status Routine Resus Stat 07/14/21 12:56 Ordered Medication Orders Acetaminophen (Acetaminophen 325 Mg Tab) 650 mg PO Q4H PRN PRN Reason: Pain/Fever Last Admin: 07/14/21 18:30 Dose: 650 mg Documented by: HAMMAD Hydrocodone Bitart/Acetaminophen (Acetaminophen/Hydrocodone 325-5 Mg Tab) 1 tab PO Q4H PRN PRN Reason: Pain (mild 1-3) Alendronate Sodium (Alendronate 70 Mg Tab) 70 mg PO Zaragoza@0700 [facility] Bandage/Support Products (Nozin Nasal Needle Grader) 1 applic NASBOTH BID [facility] Last Admin: 07/15/21 08:15 Dose: 1 applic Documented by: Admin: 07/14/21 21:13 Dose: 1 applic Documented by: MOY Calcium Carbonate (Calcium Carbonate/Vitamin D3 1500 Mg-400 Units Tab) 2 tab PO DAILY [facility] Last Admin: 07/15/21 08:15 Dose: 2 tab Documented by: SKYLAR Docusate Sodium (Docusate Sodium 100 Mg Cap) 100 mg PO BID [facility] Last Admin: 07/15/21 08:16 Dose: 100 mg Documented by: Admin: 07/14/21 21:09 Dose: 100 mg Documented by: MOY Enoxaparin Sodium (Enoxaparin 30 Mg/0.3 Ml Syringe) 30 mg SUBCUT DAILY [facility] Last Admin: 07/15/21 08:16 Dose: 30 mg Documented by: SKYLAR Estradiol (Estradiol 0.5 Mg Tab) 1 mg PO DAILY [facility] Last Admin: 07/15/21 08:16 Dose: 1 mg Documented by: SKYLAR Sodium Chloride (Normal Saline) 1,000 mls @ 125 mls/hr IV ASDIRECTED [facility] Last Admin: 07/14/21 23:36 Dose: 125 mls/hr Documented by: Infusion: 07/14/21 23:27 Dose: 125 mls/hr Documented by: Admin: 07/14/21 15:27 Dose: 125 mls/hr Documented by: HAMMAD Cefazolin Sodium/Dextrose 1 gm (/ Premix) 50 mls @ 100 mls/hr IV Q8H [facility] Stop: 07/15/21 10:29 Last Admin: 07/15/21 02:23 Dose: 100 mls/hr Documented by: Infusion: 07/14/21 19:01 Dose: 100 mls/hr Documented by: Admin: 07/14/21 18:31 Dose: 100 mls/hr Documented by: HAMMAD Ketoconazole (Ketoconazole 2% Crm 30 Gm Tube) 0 gm TOP BID [facility] Last Admin: 07/15/21 08:18 Dose: 1 applic Documented by: Admin: 07/14/21 21:09 Dose: 1 applic Documented by: MOY Ketorolac Tromethamine (Ketorolac 30 Mg/Ml Sdv) 15 mg IVPUSH Q8H PRN PRN Reason: Breakthrough Pain Last Admin: 07/14/21 23:31 Dose: 15 mg Documented by: Admin: 07/14/21 15:36 Dose: 15 mg Documented by: HAMMAD Magnesium Hydroxide (Magnesium Hydroxide 400 Mg/5 Ml Susp 30 Ml Cup) 30 ml PO BID PRN PRN Reason: Constipation Medroxyprogesterone Acetate (Medroxyprogesterone 2.5 Mg Tab) 2.5 mg PO DAILY [facility] Last Admin: 07/15/21 08:17 Dose: 2.5 mg Documented by: SKYLAR Morphine Sulfate (Morphine 2 Mg/Ml Syringe) 1 mg IVPUSH Q1H PRN PRN Reason: Breakthrough Pain Last Admin: 07/14/21 22:15 Dose: 1 mg Documented by: Admin: 07/14/21 16:38 Dose: 1 mg Documented by: HAMMAD Ondansetron HCl (Ondansetron 4 Mg/2 Ml Sdv) 4 mg IVPUSH Q4H PRN PRN Reason: Nausea/Vomiting Last Admin: 07/14/21 17:27 Dose: 4 mg Documented by: KOURTNEY Oxybutynin Chloride (Oxybutynin 5 Mg Tab) 5 mg PO BID [facility] Last Admin: 07/15/21 08:16 Dose: 5 mg Documented by: Admin: 07/14/21 21:10 Dose: 5 mg Documented by: MOY Oxycodone/Acetaminophen (Acetaminophen/Oxycodone 325-5 Mg Tab) 1 - 2 tab PO Q4H PRN PRN Reason: Pain Last Admin: 07/15/21 07:27 Dose: 2 tab Documented by: Admin: 07/15/21 03:43 Dose: 2 tab Documented by: Admin: 07/14/21 23:30 Dose: 2 tab Documented by: Admin: 07/14/21 19:30 Dose: 2 tab Documented by: Admin: 07/14/21 15:35 Dose: 1 tab Documented by: Admin: 07/14/21 15:10 Dose: 1 tab Documented by: HAMMAD Rosuvastatin Calcium (Rosuvastatin 10 Mg Tab) 10 mg PO DAILY [facility] Last Admin: 07/15/21 08:16 Dose: 10 mg Documented by: SKYLAR Thyroid (Thyroid 30 Mg Tab) 30 mg PO DAILY@0730 [facility] Last Admin: 07/15/21 07:27 Dose: 30 mg Documented by: SKYLAR Trazodone HCl (Trazodone 50 Mg Tab) 100 mg PO BEDTIME [facility] Last Admin: 07/14/21 21:11 Dose: 100 mg Documented by: MOY - Assessment Assessment (Free Text/Narrative):: Patient is a pleasant 66-year-old female, status post left total knee arthroplasty, postop day #1. Patient tolerated surgery well with no complications. No acute events overnight. Patient remains hemodynamically stable. Did have intermittent bradycardia postoperatively; heart rate trended down into the 40s. Patient was placed on telemetry monitoring yesterday afternoon. Heart rate has since been running in the 60's-70's. Patient denied palpitations, chest pain, nor dyspnea on exertion. Also denied subjective fevers, chills, shortness of breath, nor fatigue. POD#1 HgB trended down at 11.7, is currently asymptomatic with this. Patient had difficulty with pain control yesterday afternoon once the block wore off. Has since been alternating toradol, percocet, and morphine and getting good relief with this. Transferred to edge of bed and chair yesterday, has not ambulated further than chair. Endorsed pain with transfers in left knee. No significant pain with resting in bed this morning. Denied numbness or tingling in left lower extremity. Patient endorsed decreased appetite. No nausea or emesis. Patient requires inpatient status at this time for additional physical therapy services to progress ambulation abilities and functional mobility with left lower extremity. Also requires transition to PO medications for adequate pain control prior to discharge. Exam: Left lower extremity dressing dry and intact. Postoperative swelling present throughout left lower extremity. + Pedal edema. Negative Homans sign. Tibialis posterior appreciated, 2+. Sensation of left lower extremity intact. Dorsi flexion: 4/5. Plantar flexion: 4/5. Plan: * Anticipate participation in physical and occupational therapy daily while in the hospital. * Continue with current pain control regimen; will need to transition to PO medications prior to discharge. * 30 mg subcutaneous Lovenox daily for chemical DVT/VTE prophylaxis. Bilateral lower extremity SCDs for mechanical DVT/VTE prophylaxis. * Postoperative anemia stable at this time; continue to monitor for symptoms of dizziness, lightheadedness, dyspnea, orthostatic hypotension. Can recheck CBC if patient becomes symptomatic. * May discontinue Bowens catheter this afternoon, pending progress with physical therapy this morning. * May saline lock patient this morning. * Anticipate dressing change by orthopedic provider on postop day #2. * Anticipate discharge to [facility] facility when patient is medically stable and physical therapy abilities progress. Patient would prefer placement at [facility] if there is bed availability.
[2021-07-15] MEDS ORDERED: Rosuvastatin 10 MG Tab PO SCH (09:00)
[2021-07-15] MEDS ORDERED: Non-Formulary Medication 1 Each (Calcium Carbonate/Vitamin D3 [Calcium 600 + Vit D Tablet] PO SCH (09:00)
[2021-07-15] MEDS ORDERED: Non-Formulary Medication 1 Each (Estradiol [Estradiol] 1 MG Tablet) PO SCH (09:00)
[2021-07-15] MEDS ORDERED: Enoxaparin 30 MG/0.3 ML Syringe SUBCUT SCH (09:00)
--- NOTE | 2021-07-15 09:32 | CR ---
Knee 1V or 2V Lt CLINICAL HISTORY: Knee arthroplasty FINDINGS: Patient is status post recent total knee arthroplasty. Components appear well seated. There is intra-articular and subcutaneous air Impression: Postop TKA
[2021-07-15] MEDS: traZODone 50 MG Tab PO SCH (20:40)
[2021-07-16] MEDS: Acetaminophen/oxyCODONE 325-5 MG Tab PO PRN ×6 (01:34→23:55)
[2021-07-16] MEDS: Nozin Nasal Sanitizer NASBOTH SCH ×2 (09:14→21:28)
[2021-07-16] MEDS: Rosuvastatin 10 MG Tab PO SCH (09:15)
[2021-07-16] MEDS: Enoxaparin 30 MG/0.3 ML Syringe SUBCUT SCH (09:15)
[2021-07-16] MEDS: Docusate Sodium 100 MG Cap PO SCH ×2 (09:15→21:31)
[2021-07-16] MEDS: Calcium Carbonate/Vitamin D3 1500 MG-400 Units Tab PO SCH (09:15)
[2021-07-16] MEDS: Oxybutynin 5 MG Tab PO SCH ×2 (09:15→21:31)
[2021-07-16] MEDS: Estradiol 0.5 MG Tab PO SCH (09:15)
[2021-07-16] MEDS: Ketoconazole 2% Crm 30 GM Tube TOP SCH ×2 (09:16→21:31)
--- NOTE | 2021-07-16 13:19 | PCM.SURGPN ---
- General Info Date of Service: 07/16/21 Date of Surgery/Procedure: 07/14/21 POD#: 2 Post-Op Diagnosis: left knee osteoarthritis Admission Diagnosis/Problem: Knee joint operation Functional Status: Reports: Pain Controlled, Tolerating Diet, Ambulating (with FWW, x1 assist ), Urinating - Review of Systems General: Denies: Fever, Weakness, Fatigue, Malaise, Chills Musculoskeletal: Reports: Leg Pain (left ), Joint Pain (left knee ), Joint Swelling (left knee ) Skin: Reports: Bruising Neurological: Reports: No Symptoms Psychiatric: Reports: No Symptoms - Patient Data Vitals - Most Recent: Last Vital Signs Temp 97.3 F 07/16/21 13:08 Pulse 59 L 07/16/21 13:08 Resp 16 07/16/21 13:08 BP 117/55 L 07/16/21 13:08 Pulse Ox 100 07/16/21 13:08 Weight - Most Recent: 204 lb 0.005 oz I&O - Last 24 Hours: Intake & Output 07/15/21 07/16/21 07/16/21 22:59 06:59 14:59 Intake Total 400 360 240 Balance 400 360 240 Med Orders - Current: Current Medications Acetaminophen (Acetaminophen 325 Mg Tab) 650 mg PO Q4H PRN PRN Reason: Pain/Fever Last Admin: 07/14/21 18:30 Dose: 650 mg Documented by: Hydrocodone Bitart/Acetaminophen (Acetaminophen/Hydrocodone 325-5 Mg Tab) 1 tab PO Q4H PRN PRN Reason: Pain (mild 1-3) Alendronate Sodium (Alendronate 70 Mg Tab) 70 mg PO Zaragoza@0700 [facility] Bandage/Support Products (Nozin Nasal Radio Survey Worker) 1 applic NASBOTH BID [facility] Last Admin: 07/16/21 09:14 Dose: 1 applic Documented by: Calcium Carbonate (Calcium Carbonate/Vitamin D3 1500 Mg-400 Units Tab) 2 tab PO DAILY [facility] Last Admin: 07/16/21 09:15 Dose: 2 tab Documented by: Docusate Sodium (Docusate Sodium 100 Mg Cap) 100 mg PO BID [facility] Last Admin: 07/16/21 09:15 Dose: 100 mg Documented by: Enoxaparin Sodium (Enoxaparin 30 Mg/0.3 Ml Syringe) 30 mg SUBCUT DAILY [facility] Last Admin: 07/16/21 09:15 Dose: 30 mg Documented by: Estradiol (Estradiol 0.5 Mg Tab) 1 mg PO DAILY [facility] Last Admin: 07/16/21 09:15 Dose: 1 mg Documented by: Sodium Chloride (Normal Saline) 1,000 mls @ 125 mls/hr IV ASDIRECTED [facility] Last Admin: 07/14/21 23:36 Dose: 125 mls/hr Documented by: Ketoconazole (Ketoconazole 2% Crm 30 Gm Tube) 0 gm TOP BID [facility] Last Admin: 07/16/21 09:16 Dose: 1 applic Documented by: Ketorolac Tromethamine (Ketorolac 30 Mg/Ml Sdv) 15 mg IVPUSH Q8H PRN PRN Reason: Breakthrough Pain Last Admin: 07/14/21 23:31 Dose: 15 mg Documented by: Magnesium Hydroxide (Magnesium Hydroxide 400 Mg/5 Ml Susp 30 Ml Cup) 30 ml PO BID PRN PRN Reason: Constipation Medroxyprogesterone Acetate (Medroxyprogesterone 2.5 Mg Tab) 2.5 mg PO DAILY [facility] Last Admin: 07/16/21 09:15 Dose: 2.5 mg Documented by: Morphine Sulfate (Morphine 2 Mg/Ml Syringe) 1 mg IVPUSH Q1H PRN PRN Reason: Breakthrough Pain Last Admin: 07/14/21 22:15 Dose: 1 mg Documented by: Ondansetron HCl (Ondansetron 4 Mg/2 Ml Sdv) 4 mg IVPUSH Q4H PRN PRN Reason: Nausea/Vomiting Last Admin: 07/14/21 17:27 Dose: 4 mg Documented by: Oxybutynin Chloride (Oxybutynin 5 Mg Tab) 5 mg PO BID [facility] Last Admin: 07/16/21 09:15 Dose: 5 mg Documented by: Oxycodone/Acetaminophen (Acetaminophen/Oxycodone 325-5 Mg Tab) 1 - 2 tab PO Q4H PRN PRN Reason: Pain Last Admin: 07/16/21 09:25 Dose: 2 tab Documented by: Rosuvastatin Calcium (Rosuvastatin 10 Mg Tab) 10 mg PO DAILY [facility] Last Admin: 07/16/21 09:15 Dose: 10 mg Documented by: Thyroid (Thyroid 30 Mg Tab) 30 mg PO DAILY@0730 [facility] Last Admin: 07/16/21 09:16 Dose: 30 mg Documented by: Trazodone HCl (Trazodone 50 Mg Tab) 100 mg PO BEDTIME [facility] Last Admin: 07/15/21 20:40 Dose: 100 mg Documented by: Discontinued Medications Bandage/Support Products (Nozin Nasal Radio Survey Worker) 1 applic NASBOTH ONETIME ONE Stop: 07/14/21 08:16 Last Admin: 07/14/21 09:24 Dose: 1 applic Documented by: Docusate Sodium (Docusate Sodium 100 Mg Cap) 100 mg PO BID [facility] Enoxaparin Sodium (Enoxaparin 30 Mg/0.3 Ml Syringe) 30 mg SUBCUT DAILY [facility] Fentanyl (Fentanyl 100 Mcg/2 Ml Sdv) Confirm Administered Dose 100 mcg .ROUTE .STK-MED ONE Stop: 07/14/21 08:33 Fluconazole (Fluconazole 150 Mg Tab) 150 mg PO DAILY PRN PRN Reason: Other Cefazolin Sodium/Dextrose 2 gm (/ Premix) 50 mls @ 100 mls/hr IV ONETIME ONE Stop: 07/14/21 08:44 Last Admin: 07/14/21 11:15 Dose: 100 mls/hr Documented by: Lactated Ringer's (Ringers, Lactated) 1,000 mls @ 75 mls/hr IV ASDIRECTED [facility] Last Admin: 07/14/21 09:51 Dose: 75 mls/hr Documented by: Tranexamic Acid 920 mg/ Sodium (Chloride) 59.2 mls @ 210 mls/hr IV ONETIME ONE Stop: 07/14/21 08:16 Last Admin: 07/14/21 11:45 Dose: 210 mls/hr Documented by: Lactated Ringer's (Ringers, Lactated) Confirm Administered Dose 1,000 mls @ as directed .ROUTE .STK-MED ONE Stop: 07/14/21 11:37 Cefazolin Sodium/Dextrose 1 gm (/ Premix) 50 mls @ 100 mls/hr IV Q8H [facility] Stop: 07/15/21 10:29 Last Admin: 07/15/21 10:32 Dose: 100 mls/hr Documented by: Medroxyprogesterone Acetate (Medroxyprogesterone 2.5 Mg Tab) 2.5 mg PO DAILY [facility] Midazolam HCl (Midazolam 1 Mg/Ml 2 Ml Sdv) Confirm Administered Dose 2 mg .ROUTE .STK-MED ONE Stop: 07/14/21 08:33 Non-Formulary Medication (Calcium Carbonate/Vitamin D3 [Calcium 600 + Vit D Tablet]) 2 tab PO DAILY [facility] Non-Formulary Medication (Estradiol [Estradiol]) 1 mg PO DAILY [facility] Oxybutynin Chloride (Oxybutynin 5 Mg Tab) 5 mg PO BID [facility] Povidone Iodine (Povidone-Iodine 10% Soln 118.25 Ml Bottle) Confirm Administered Dose 1 ml .ROUTE .STK-MED ONE Stop: 07/14/21 09:36 Last Admin: 07/14/21 12:00 Dose: 30 ml Documented by: Propofol (Propofol 200 Mg/20 Ml Sdv) Confirm Administered Dose 200 mg .ROUTE .STK-MED ONE Stop: 07/14/21 08:33 Propofol (Propofol 200 Mg/20 Ml Sdv) Confirm Administered Dose 200 mg .ROUTE .STK-MED ONE Stop: 07/14/21 11:55 Propofol (Propofol 200 Mg/20 Ml Sdv) Confirm Administered Dose 200 mg .ROUTE .STK-MED ONE Stop: 07/14/21 12:10 Rosuvastatin Calcium (Rosuvastatin 10 Mg Tab) 10 mg PO DAILY [facility] Thyroid (Thyroid 30 Mg Tab) 30 mg PO DAILY [facility] Trazodone HCl (Trazodone 50 Mg Tab) 100 mg PO BEDTIME [facility] - Exam Wound/Incisions: Healing Well, Dressing Dry and Intact, No Drainage Quality Assessment: DVT Prophylaxis General: Alert, Oriented, Cooperative, No Acute Distress Extremities: Joint Swelling (left knee ), Leg Pain (left ), Limited Range of Motion, Other (LE neurovascular intact ) Skin: Dry, Intact Neurological: No New Focal Deficit Psy/Mental Status: Alert, Normal Affect, Normal Mood Sepsis Event Note - Evaluation Sepsis Screening Result: No Definite Risk - Focused Exam Vital Signs: Vital Signs Temp Pulse Resp BP Pulse Ox 07/16/21 13:08 97.3 F 59 L 16 117/55 L 100 07/16/21 07:30 97.7 F 78 16 136/59 L 95 07/16/21 01:41 97.8 F 86 16 128/61 91 L - Problem List & Annotations (1) Postoperative anemia due to acute blood loss SNOMED Code(s): 63685587539478158 Code(s): D62 - ACUTE POSTHEMORRHAGIC ANEMIA Status: Acute Current Visit: Yes (2) Status post total left knee replacement SNOMED Code(s): 4199254953096, 3647763873738 Code(s): Z96.652 - PRESENCE OF LEFT ARTIFICIAL KNEE JOINT Status: Acute Current Visit: Yes - Problem List Review Problem List Initiated/Reviewed/Updated: Yes - My Orders Last 24 Hours: Active Orders 24 hr Category Date Time Status Alendronate [Fosamax] Med 07/20/21 07:00 Active 70 mg PO Zaragoza@0700 Medication Orders Acetaminophen (Acetaminophen 325 Mg Tab) 650 mg PO Q4H PRN PRN Reason: Pain/Fever Last Admin: 07/14/21 18:30 Dose: 650 mg Documented by: HAMMAD Hydrocodone Bitart/Acetaminophen (Acetaminophen/Hydrocodone 325-5 Mg Tab) 1 tab PO Q4H PRN PRN Reason: Pain (mild 1-3) Alendronate Sodium (Alendronate 70 Mg Tab) 70 mg PO Zaragoza@0700 [facility] Bandage/Support Products (Nozin Nasal Radio Survey Worker) 1 applic NASBOTH BID [facility] Last Admin: 07/16/21 09:14 Dose: 1 applic Documented by: Admin: 07/15/21 20:42 Dose: 1 applic Documented by: Admin: 07/15/21 08:15 Dose: 1 applic Documented by: Admin: 07/14/21 21:13 Dose: 1 applic Documented by: MOY Calcium Carbonate (Calcium Carbonate/Vitamin D3 1500 Mg-400 Units Tab) 2 tab PO DAILY [facility] Last Admin: 07/16/21 09:15 Dose: 2 tab Documented by: Admin: 07/15/21 08:15 Dose: 2 tab Documented by: SKYLAR Docusate Sodium (Docusate Sodium 100 Mg Cap) 100 mg PO BID [facility] Last Admin: 07/16/21 09:15 Dose: 100 mg Documented by: Admin: 07/15/21 20:40 Dose: 100 mg Documented by: Admin: 07/15/21 08:16 Dose: 100 mg Documented by: Admin: 07/14/21 21:09 Dose: 100 mg Documented by: MOY Enoxaparin Sodium (Enoxaparin 30 Mg/0.3 Ml Syringe) 30 mg SUBCUT DAILY [facility] Last Admin: 07/16/21 09:15 Dose: 30 mg Documented by: Admin: 07/15/21 08:16 Dose: 30 mg Documented by: SKYLAR Estradiol (Estradiol 0.5 Mg Tab) 1 mg PO DAILY [facility] Last Admin: 07/16/21 09:15 Dose: 1 mg Documented by: Admin: 07/15/21 08:16 Dose: 1 mg Documented by: SKYLAR Sodium Chloride (Normal Saline) 1,000 mls @ 125 mls/hr IV ASDIRECTED [facility] Last Admin: 07/14/21 23:36 Dose: 125 mls/hr Documented by: Infusion: 07/14/21 23:27 Dose: 125 mls/hr Documented by: Admin: 07/14/21 15:27 Dose: 125 mls/hr Documented by: HAMMAD Ketoconazole (Ketoconazole 2% Crm 30 Gm Tube) 0 gm TOP BID [facility] Last Admin: 07/16/21 09:16 Dose: 1 applic Documented by: Admin: 07/15/21 20:40 Dose: 1 applic Documented by: Admin: 07/15/21 08:18 Dose: 1 applic Documented by: Admin: 07/14/21 21:09 Dose: 1 applic Documented by: MOY Ketorolac Tromethamine (Ketorolac 30 Mg/Ml Sdv) 15 mg IVPUSH Q8H PRN PRN Reason: Breakthrough Pain Last Admin: 07/14/21 23:31 Dose: 15 mg Documented by: Admin: 07/14/21 15:36 Dose: 15 mg Documented by: HAMMAD Magnesium Hydroxide (Magnesium Hydroxide 400 Mg/5 Ml Susp 30 Ml Cup) 30 ml PO BID PRN PRN Reason: Constipation Medroxyprogesterone Acetate (Medroxyprogesterone 2.5 Mg Tab) 2.5 mg PO DAILY [facility] Last Admin: 07/16/21 09:15 Dose: 2.5 mg Documented by: Admin: 07/15/21 08:17 Dose: 2.5 mg Documented by: SKYLAR Morphine Sulfate (Morphine 2 Mg/Ml Syringe) 1 mg IVPUSH Q1H PRN PRN Reason: Breakthrough Pain Last Admin: 07/14/21 22:15 Dose: 1 mg Documented by: Admin: 07/14/21 16:38 Dose: 1 mg Documented by: HAMMAD Ondansetron HCl (Ondansetron 4 Mg/2 Ml Sdv) 4 mg IVPUSH Q4H PRN PRN Reason: Nausea/Vomiting Last Admin: 07/14/21 17:27 Dose: 4 mg Documented by: KOURTNEY Oxybutynin Chloride (Oxybutynin 5 Mg Tab) 5 mg PO BID [facility] Elijah Admin: 07/16/21 09:15 Dose: 5 mg Documented by: Admin: 07/15/21 20:40 Dose: 5 mg Documented by: Admin: 07/15/21 08:16 Dose: 5 mg Documented by: Admin: 07/14/21 21:10 Dose: 5 mg Documented by: MOY Oxycodone/Acetaminophen (Acetaminophen/Oxycodone 325-5 Mg Tab) 1 - 2 tab PO Q4H PRN PRN Reason: Pain Last Admin: 07/16/21 09:25 Dose: 2 tab Documented by: Admin: 07/16/21 05:20 Dose: 2 tab Documented by: Admin: 07/16/21 01:34 Dose: 2 tab Documented by: Admin: 07/15/21 20:47 Dose: 2 tab Documented by: Admin: 07/15/21 16:06 Dose: 2 tab Documented by: Admin: 07/15/21 11:44 Dose: 2 tab Documented by: Admin: 07/15/21 07:27 Dose: 2 tab Documented by: Admin: 07/15/21 03:43 Dose: 2 tab Documented by: Admin: 07/14/21 23:30 Dose: 2 tab Documented by: Admin: 07/14/21 19:30 Dose: 2 tab Documented by: Admin: 07/14/21 15:35 Dose: 1 tab Documented by: Admin: 07/14/21 15:10 Dose: 1 tab Documented by: HAMMAD Rosuvastatin Calcium (Rosuvastatin 10 Mg Tab) 10 mg PO DAILY [facility] Elijah Admin: 07/16/21 09:15 Dose: 10 mg Documented by: Admin: 07/15/21 08:16 Dose: 10 mg Documented by: SKYLAR Thyroid (Thyroid 30 Mg Tab) 30 mg PO DAILY@0730 [facility] Last Admin: 07/16/21 09:16 Dose: 30 mg Documented by: Admin: 07/15/21 07:27 Dose: 30 mg Documented by: SKYLAR Trazodone HCl (Trazodone 50 Mg Tab) 100 mg PO BEDTIME [facility] Last Admin: 07/15/21 20:40 Dose: 100 mg Documented by: Admin: 07/14/21 21:11 Dose: 100 mg Documented by: MOY - Assessment Assessment (Free Text/Narrative):: Fany 66 y/o female, status post left total knee arthroplasty, POD #2. No acute events overnight. Patient reports energy level improved and no further episodes of chills. Pain well controlled with oral Percocet. Endorsed good appetite, no nausea or emesis. Has been working with physical therapy daily; ambulation abilities have progressed nicely, walked 130 ft with FWW and x1 assist. Does still struggle with lifting left leg into and out of bed independently. Has used adaptive equipment in past with previous hip surgery and demonstrates competency in completing ADLs during todays OT session. IV saline locked POD#1. Bowens catheter discontinued POD #1. Dressing changed by orthopedic provider on POD #2. Continues to require inpatient status for additional therapy services to progress functional mobility of left leg with transfers from bed to chair. Exam: Dressing removed; incision well approximated and intact. No surrounding erythema nor active drainage. Moderate postoperative swelling present on left lower extremity. Mild ecchymosis around left knee. LE neurovascular intact. Plan: * Continue with physical therapy services daily. * Continue with current pain regimen. * Continue with 30 mg Lovenox subcutaneous daily and bilateral LE SCDs for DVT/VTE prophylaxis. * Postoperative anemia stable; continue to monitor for symptoms of dizziness, dyspnea, or orthostatic hypotension. If becomes symptomatic, can recheck a CBC. * Anticipate discharge to SNF; placement available at [facility] tomorrow afternoon. Daughter is available to give patient ride. Pending patient remains medically stable, improvements in functional mobility of left leg, and pain controlled with PO medications, anticipate discharge tomorrow afternoon.
[2021-07-16] MEDS: traZODone 50 MG Tab PO SCH (21:31)
[2021-07-17] MEDS: Acetaminophen/oxyCODONE 325-5 MG Tab PO PRN ×2 (04:09→08:44)
--- NOTE | 2021-07-17 08:04 | PCM.DCSUM1 ---
Discharge Summary - Hospital Course HPI Initial Comments: Fany 66 y/o female, history of chronic left knee pain, symptoms refractory to conservative management. Elected to undergo total knee arthroplasty. Tolerated procedure well with no complications. Hospital stay prolonged to allow for additional therapy services prior to discharge. Diagnosis: Stroke: No Modified Mosby Scale: No Symptoms at All Modified Cl Scale Score: 0 - Discharge Data Discharge Date: 07/17/21 Discharge Disposition: DC/Tfer to SNF 03 Condition: Good - Referral to Home Health Date of Face to Face Encounter: 07/17/21 Primary Care Physician: Anamika Pena CNM Skilled Need: physical therapy, occupational therapy, dressing changes - Discharge Diagnosis/Problem(s) (1) Postoperative anemia due to acute blood loss SNOMED Code(s): 33884255802213310 ICD Code: D62 - ACUTE POSTHEMORRHAGIC ANEMIA Status: Acute Current Visit: Yes (2) Status post total left knee replacement SNOMED Code(s): 8802986913180, 7044520831174 ICD Code: Z96.652 - PRESENCE OF LEFT ARTIFICIAL KNEE JOINT Status: Acute Current Visit: Yes - Patient Summary/Data Operative Procedure(s) Performed: left total knee arthroplasty Consults: Consultations 07/14/21 12:56 Consult to Case Management/Asphalt Plant Operator [CONS] Routine Comment: Physician Instructions: Service(s) to be Consulted: Case Management Reason for Consult: Plan for Discharge Special Instructions: s/ L TKA, would like placement at SNF upon discharge OT Evaluation and Treatment [CONS] Routine Please Evaluate and Treat. OT Reason for Consult: ADL's Special Instructions: s/p L TKA This query below is only for informational purposes and is not editable. PT Evaluation and Treatment [CONS] Routine Please Evaluate and Treat. PT Reason for Consult: Post op Ortho Surgery Special Instructions: s/p L TKA This query below is only for informational purposes and is not editable. PT Evaluation and Treatment [CONS] Routine Please Evaluate and Treat. PT Reason for Consult: Post op Ortho Surgery Knee Pending Discharge: Yes, 1- 2 days Special Instructions: Schedule first outpatient PT appointment in 3-5 day post discharge. This query below is only for informational purposes and is not editable. Hospital Course: Fany 66 y/o female, underwent left total knee arthroplasty 07/14/21. Tolerated surgery well with no complications. No acute events during hospitalization. Was bradycardic following surgery; heart rate was in the 40's for about an hour. Telemetry unit placed, heart rate trended up to 60's-70's for the remained of stay. Did have difficulty with pain control, nausea, and chills the evening of surgery, but this was all resolved moving into POD#1. Pain was adequately controlled with PO medications, no concerns of further nausea or emesis. Tolerated regular diet well. Denied any further chills, also denied subjective fever, dyspnea, chest pain, nor palpitations. POD #1 Hgb declined to 11.7. Patient was asymptomatic with this; no dizziness, lightheadedness, nor orthostatic hypotension. Aside from bradycardia following surgery, vitals remained within acceptable limits during hospital stay. Worked with physical therapy daily. Ambulated up to 160 ft with FWW and standby assist. Had difficulties with transferring left leg into and out of bed independently; does use leg implementation engineer to aid with this task. Has adaptive equipment from previous surgeries and demonstrated competency in completing ADLs. IV saline locked POD#1. Bowens catheter discontinued POD#1. Dressing changed POD#2, #3. - Patient Instructions Diet: Regular Diet as Tolerated Activity: Apply Ice, Full Weight Bearing Driving: Do Not Drive Showering/Bathing: May Shower Wound/Incision Care: Keep Operative Site/Wound Site Clean and Dry, Change Dressing Daily Notify Provider of: Fever, Increased Pain, Swelling and Redness, Drainage - Discharge Plan *PRESCRIPTION DRUG MONITORING PROGRAM REVIEWED*: Yes *COPY OF PRESCRIPTION DRUG MONITORING REPORT IN PATIENT PATRICIA: Not Applicable Home Medications: Home Meds estradioL [Estradiol] 1 mg PO DAILY 02/28/18 [History] medroxyPROGESTERone [Provera] 2.5 mg PO DAILY 02/28/18 [History] Aspirin [Halfprin] 81 mg PO DAILY 06/06/18 [History] Lutein/Minerals/Vit A,C & E [Ocuvite] 1 tab PO DAILY 06/06/18 [History] traZODone HCl [Trazodone HCl] 100 mg PO BEDTIME 06/06/18 [History] Alendronate Sodium [Fosamax] 70 mg PO WEEKLY 12/05/19 [History] Calcium Carbonate/Vitamin D3 [Calcium 600 + Vit D Tablet] 2 tab PO DAILY 12/05/19 [History] Rosuvastatin [Crestor] 10 mg PO DAILY 08/20/20 [History] Oxybutynin 5 mg PO BID 10/17/20 [History] Fluconazole 150 mg PO DAILY PRN 07/08/21 [History] Mv-Mn/Folic AC/Calcium/Vit K1 [Women 50 Plus Multivit Adv Tab] 1 tab PO DAILY 07/08/21 [History] Nystatin 15 gm TP BID 07/08/21 [History] Thyroid [Cornish Thyroid] 30 mg PO DAILY 07/08/21 [History] Ketoconazole [Nizoral 2% Crm] 1 applic TOP BID 07/14/21 [History] Aspirin 325 mg PO BID 07/17/21 [History] Oxygen Therapy Mode: Room Air Patient Handouts: Total Knee Replacement, Care After, Preventing Problems After Surgery, Preventing Constipation After Surgery Referrals: Leela Mariee PA [Ordering Only Provider] - 07/29/21 9:00 am (Please arrive 15 minutes early to register for your appointment.) - Discharge Summary/Plan Comment DC Time >30 min.: No Total # of Minutes for Discharge Time: 10 Discharge Summary/Plan Comment: -Patient discharging to [facility] for additional rehab services to aid in functional mobilities with left leg. Will complete PT at rehab facility. -Paper prescription provided for pain medication: 5mg-325mg [place], 1-2 tabs q6 hrs prn pain, dispense #40. -Encouraged to continue with stool softener while on opioid pain medication. -Instructed to continue Nozin spray BID. -Instructed to take 1 aspirin (81 mg or 325 mg) BID for DVT/VTE prophylaxis. -May continue with daily dressing changes with medical gauze and tape. If no active drainage, okay to discontinue dressings. May shower, let water run over steristrips. Do not submerge incision in water (no baths, jacuzzis). -Educated on warning signs of DVT/VTE and SSI; any concerns, please contact the clinic or visit your local ER -Follow up apt scheduled with ortho clinic in 2 weeks. Encouraged to call if any concerns or questions arise prior to scheduled apt. - General Info Date of Service: 07/17/21 Admission Dx/Problem (Free Text: knee osteoarthritis; s/p left total knee arthroplasty Functional Status: Reports: Pain Controlled, Tolerating Diet, Ambulating (with FWW, SBA ), Incentive Spirometry - Review of Systems General: Denies: Fever, Weakness, Fatigue, Malaise, Chills Pulmonary: Denies: Shortness of Breath Cardiovascular: Denies: Chest Pain Gastrointestinal: Denies: Nausea, Vomiting Musculoskeletal: Reports: Leg Pain (left ), Joint Pain (left knee ), Joint Swelling (left knee ) Skin: Reports: Bruising Neurological: Reports: No Symptoms Psychiatric: Reports: No Symptoms - Patient Data Vitals - Most Recent: Last Vital Signs Temp 97.0 F 07/17/21 04:00 Pulse 72 07/17/21 04:00 Resp 18 07/17/21 04:00 BP 117/49 L 07/17/21 04:00 Pulse Ox 94 L 07/17/21 04:00 Weight - Most Recent: 204 lb 0.005 oz I&O - Last 24 hours: Intake & Output 07/16/21 07/17/21 07/17/21 22:59 06:59 14:59 Intake Total 360 700 Balance 360 700 Med Orders - Current: Current Medications Acetaminophen (Acetaminophen 325 Mg Tab) 650 mg PO Q4H PRN PRN Reason: Pain/Fever Last Admin: 07/14/21 18:30 Dose: 650 mg Documented by: Hydrocodone Bitart/Acetaminophen (Acetaminophen/Hydrocodone 325-5 Mg Tab) 1 tab PO Q4H PRN PRN Reason: Pain (mild 1-3) Alendronate Sodium (Alendronate 70 Mg Tab) 70 mg PO Zaragoza@0700 [facility] Bandage/Support Products (Nozin Nasal Employment Clerk) 1 applic NASBOTH BID [facility] Last Admin: 07/16/21 21:28 Dose: 1 applic Documented by: Calcium Carbonate (Calcium Carbonate/Vitamin D3 1500 Mg-400 Units Tab) 2 tab PO DAILY [facility] Last Admin: 07/16/21 09:15 Dose: 2 tab Documented by: Docusate Sodium (Docusate Sodium 100 Mg Cap) 100 mg PO BID [facility] Last Admin: 07/16/21 21:31 Dose: 100 mg Documented by: Enoxaparin Sodium (Enoxaparin 30 Mg/0.3 Ml Syringe) 30 mg SUBCUT DAILY [facility] Last Admin: 07/16/21 09:15 Dose: 30 mg Documented by: Estradiol (Estradiol 0.5 Mg Tab) 1 mg PO DAILY [facility] Last Admin: 07/16/21 09:15 Dose: 1 mg Documented by: Sodium Chloride (Normal Saline) 1,000 mls @ 125 mls/hr IV ASDIRECTED [facility] Last Admin: 07/14/21 23:36 Dose: 125 mls/hr Documented by: Ketoconazole (Ketoconazole 2% Crm 30 Gm Tube) 0 gm TOP BID [facility] Last Admin: 07/16/21 21:31 Dose: 1 applic Documented by: Ketorolac Tromethamine (Ketorolac 30 Mg/Ml Sdv) 15 mg IVPUSH Q8H PRN PRN Reason: Breakthrough Pain Last Admin: 07/14/21 23:31 Dose: 15 mg Documented by: Magnesium Hydroxide (Magnesium Hydroxide 400 Mg/5 Ml Susp 30 Ml Cup) 30 ml PO BID PRN PRN Reason: Constipation Last Admin: 07/17/21 04:15 Dose: 30 ml Documented by: Medroxyprogesterone Acetate (Medroxyprogesterone 2.5 Mg Tab) 2.5 mg PO DAILY [facility] Last Admin: 07/16/21 09:15 Dose: 2.5 mg Documented by: Morphine Sulfate (Morphine 2 Mg/Ml Syringe) 1 mg IVPUSH Q1H PRN PRN Reason: Breakthrough Pain Last Admin: 07/14/21 22:15 Dose: 1 mg Documented by: Ondansetron HCl (Ondansetron 4 Mg/2 Ml Sdv) 4 mg IVPUSH Q4H PRN PRN Reason: Nausea/Vomiting Last Admin: 07/14/21 17:27 Dose: 4 mg Documented by: Oxybutynin Chloride (Oxybutynin 5 Mg Tab) 5 mg PO BID [facility] Last Admin: 07/16/21 21:31 Dose: 5 mg Documented by: Oxycodone/Acetaminophen (Acetaminophen/Oxycodone 325-5 Mg Tab) 1 - 2 tab PO Q4H PRN PRN Reason: Pain Last Admin: 07/17/21 04:09 Dose: 2 tab Documented by: Rosuvastatin Calcium (Rosuvastatin 10 Mg Tab) 10 mg PO DAILY [facility] Last Admin: 07/16/21 09:15 Dose: 10 mg Documented by: Thyroid (Thyroid 30 Mg Tab) 30 mg PO DAILY@0730 [facility] Last Admin: 07/17/21 07:18 Dose: 30 mg Documented by: Trazodone HCl (Trazodone 50 Mg Tab) 100 mg PO BEDTIME [facility] Last Admin: 07/16/21 21:31 Dose: 100 mg Documented by: Discontinued Medications Bandage/Support Products (Nozin Nasal Employment Clerk) 1 applic NASBOTH ONETIME ONE Stop: 07/14/21 08:16 Last Admin: 07/14/21 09:24 Dose: 1 applic Documented by: Docusate Sodium (Docusate Sodium 100 Mg Cap) 100 mg PO BID [facility] Enoxaparin Sodium (Enoxaparin 30 Mg/0.3 Ml Syringe) 30 mg SUBCUT DAILY [facility] Fentanyl (Fentanyl 100 Mcg/2 Ml Sdv) Confirm Administered Dose 100 mcg .ROUTE .STK-MED ONE Stop: 07/14/21 08:33 Fluconazole (Fluconazole 150 Mg Tab) 150 mg PO DAILY PRN PRN Reason: Other Cefazolin Sodium/Dextrose 2 gm (/ Premix) 50 mls @ 100 mls/hr IV ONETIME ONE Stop: 07/14/21 08:44 Last Admin: 07/14/21 11:15 Dose: 100 mls/hr Documented by: Lactated Ringer's (Ringers, Lactated) 1,000 mls @ 75 mls/hr IV ASDIRECTED [facility] Last Admin: 07/14/21 09:51 Dose: 75 mls/hr Documented by: Tranexamic Acid 920 mg/ Sodium (Chloride) 59.2 mls @ 210 mls/hr IV ONETIME ONE Stop: 07/14/21 08:16 Last Admin: 07/14/21 11:45 Dose: 210 mls/hr Documented by: Lactated Ringer's (Ringers, Lactated) Confirm Administered Dose 1,000 mls @ as directed .ROUTE .STK-MED ONE Stop: 07/14/21 11:37 Cefazolin Sodium/Dextrose 1 gm (/ Premix) 50 mls @ 100 mls/hr IV Q8H [facility] Stop: 07/15/21 10:29 Last Admin: 07/15/21 10:32 Dose: 100 mls/hr Documented by: Medroxyprogesterone Acetate (Medroxyprogesterone 2.5 Mg Tab) 2.5 mg PO DAILY [facility] Midazolam HCl (Midazolam 1 Mg/Ml 2 Ml Sdv) Confirm Administered Dose 2 mg .ROUTE .STK-MED ONE Stop: 07/14/21 08:33 Non-Formulary Medication (Calcium Carbonate/Vitamin D3 [Calcium 600 + Vit D Tablet]) 2 tab PO DAILY [facility] Non-Formulary Medication (Estradiol [Estradiol]) 1 mg PO DAILY [facility] Oxybutynin Chloride (Oxybutynin 5 Mg Tab) 5 mg PO BID [facility] Povidone Iodine (Povidone-Iodine 10% Soln 118.25 Ml Bottle) Confirm Administered Dose 1 ml .ROUTE .STK-MED ONE Stop: 07/14/21 09:36 Last Admin: 07/14/21 12:00 Dose: 30 ml Documented by: Propofol (Propofol 200 Mg/20 Ml Sdv) Confirm Administered Dose 200 mg .ROUTE .STK-MED ONE Stop: 07/14/21 08:33 Propofol (Propofol 200 Mg/20 Ml Sdv) Confirm Administered Dose 200 mg .ROUTE .STK-MED ONE Stop: 07/14/21 11:55 Propofol (Propofol 200 Mg/20 Ml Sdv) Confirm Administered Dose 200 mg .ROUTE .STK-MED ONE Stop: 07/14/21 12:10 Rosuvastatin Calcium (Rosuvastatin 10 Mg Tab) 10 mg PO DAILY [facility] Thyroid (Thyroid 30 Mg Tab) 30 mg PO DAILY [facility] Trazodone HCl (Trazodone 50 Mg Tab) 100 mg PO BEDTIME JULITO - Exam Quality Assessment: Reports: DVT Prophylaxis General: Reports: Alert, Oriented, Cooperative, No Acute Distress Extremities: Normal Capillary Refill, Pedal Edema, Joint Swelling (left knee ), Leg Pain (left ), Limited Range of Motion (from postoperative swelling of left knee ). No: Suresh's Sign Skin: Reports: Dry, Intact, Ecchymosis Wound/Incisions: Reports: Healing Well, Dressing Dry and Intact, No Drainage, Other (incision well approximated, steristrips above. No active drainage nor surrounding erythema ) Neurological: Reports: No New Focal Deficit Psy/Mental Status: Reports: Alert, Normal Affect, Normal Mood
[2021-07-17] MEDS: Nozin Nasal Sanitizer NASBOTH SCH (08:42)
[2021-07-17] MEDS: Calcium Carbonate/Vitamin D3 1500 MG-400 Units Tab PO SCH (08:42)
[2021-07-17] MEDS: Rosuvastatin 10 MG Tab PO SCH (08:43)
[2021-07-17] MEDS: Estradiol 0.5 MG Tab PO SCH (08:43)
[2021-07-17] MEDS: Docusate Sodium 100 MG Cap PO SCH (08:43)
[2021-07-17] MEDS: Enoxaparin 30 MG/0.3 ML Syringe SUBCUT SCH (08:43)
[2021-07-17] MEDS: Ketoconazole 2% Crm 30 GM Tube TOP SCH (08:43)
[2021-07-17] MEDS: Oxybutynin 5 MG Tab PO SCH (08:44)
[2021-07-17 11:15] VITALS: BP 117/57; PULSE 62
[2021-07-20] MEDS ORDERED: Alendronate 70 MG Tab PO SCH (07:00)
--- NOTE | 2021-07-28 15:49 | OR ---
DATE OF PROCEDURE: 07/14/2021 SURGEON: David Joshi MD PREOPERATIVE DIAGNOSIS: Osteoarthritis, left knee. POSTOPERATIVE DIAGNOSIS: Osteoarthritis of left knee with valgus knee with complete cartilage loss of lateral tibial plateau. PROCEDURE PERFORMED: Left total knee arthroplasty using Rod Persona components with a size 7 femur, 3 tibia, 10 mm polyethylene, and 32 mm patella. LOGGING OPERATIONS INSPECTOR: JOON Yun ANESTHESIA: Spinal with sedation. INDICATIONS: Shital is a 66-year-old female with a history of progressive pain in the left knee over the past couple of years. It has gotten significantly worse in the last several months. She has failed conservative treatment. X-rays reveal joint space collapse with valgus knee. She now presents for left total knee arthroplasty. Risks, benefits, and potential complications of the procedure were discussed. virtual office assistant services of JOON was utilized for retraction, exposure, leg manipulation, and closure. DESCRIPTION OF PROCEDURE: After adequate anesthesia was obtained, the patient was placed supine with a tourniquet about the left upper thigh. The left leg was prepped and draped in a sterile fashion. The leg was exsanguinated and tourniquet inflated to 300 mmHg pressure. A longitudinal incision was made over the anterior aspect of the knee and carried down through the subcutaneous tissues, and a medial parapatellar arthrotomy was performed. The patella was partially everted, and the posterior aspect was resected with an oscillating saw. The knee was flexed, revealing degenerative changes predominantly of the lateral compartment with full-thickness cartilage defects. Intramedullary canal was drilled. Intramedullary cutting guide was placed, and the distal femoral cut was made using an alternate cut with approximately 2 mm additional resection. Extramedullary tibial jig was then aligned and secured. Proximal tibia was resected with an oscillating saw. The remaining medial and lateral menisci were excised. Attention returned to the femur which was sized to a #7 component. A 7 cutting jig was secured to the distal femur, and anterior, posterior, and chamfer cuts were made. The trial femoral component was placed. Peg holes were drilled, and the intercondylar notch was cut for a posterior cruciate-sacrificing component. The tibia was sized to a #3 component. A tray was pinned in place. Tibial preparation completed with a reamer and punch. The trial reduction was then done with a 10 mm insert which provided full extension with good balance in flexion and extension. The patella was resurfaced with a 32 mm patellar button which tracked slightly lateral, and a lateral release was performed. The trial components were then removed. The knee was thoroughly irrigated with pulse lavage. Bone surfaces were dried. The components were cemented in place. Excess cement was removed, and the knee was held in full extension with a 10 mm trial as the cement cured. The knee was taken through range of motion and again found to be very stable in both flexion and extension with good balance and full extension with a 10 mm insert. The trial was removed. The knee was irrigated, and the final polyethylene was placed. The knee was irrigated once again with a dilute Betadine solution followed by pulse lavage. The knee was closed with #2 Ethibond in the capsule. Skin closed with 2-0 Vicryl and a running 3-0 Monocryl. Steri-Strips were applied. A light compressive dressing was then placed. The patient tolerated the procedure very well. There were no complications. She was taken from the operating room in stable condition. David Joshi MD /[id number]
== END 2021-07-17 11:50 | DRG 470 ==
LOC: EDSTATUS 07:15 → JP.SDS 08:14 → JP.MS 14:17 → UNDODISIN 07-16 15:00
PROVIDERS: ADMIT Specialist; ATTEND Specialist
PROC: 0SRD0J9 Replacement of Left Knee Joint with Synthetic Substitute, Cemented, Open Approach (ICD-10-PCS; principal; 2021-07-14)
DX: M17.12 Unilateral primary osteoarthritis, left knee (principal); D62 Acute posthemorrhagic anemia; R00.1 Bradycardia, unspecified; F32.9 Major depressive disorder, single episode, unspecified; H54.7 Unspecified visual loss; E78.5 Hyperlipidemia, unspecified; E55.9 Vitamin D deficiency, unspecified; Z96.641 Presence of right artificial hip joint; Z86.16 Personal history of COVID-19; Z79.82 Long term (current) use of aspirin; Z79.899 Other long term (current) drug therapy; Z88.2 Allergy status to sulfonamides
CPT/HCPCS: 36415; 73560-26-LT; 73560-LT; 85027; 97110-GP; 97161-GP; 97165-GO; 97530-GP; 97535-GO; A9270-GY; C1713; C1776; J0690; J1650; J1885; J2250; J2270; J2405; J2704; J3010; J7030; J7120

== ENCOUNTER 2025-03-26 09:42 | Inpatient (IN) | payer MEDICARE, BC ==
[2025-03-26] MEDS: Lactated Ringers 1,000 ML IV SCH (10:42)
[2025-03-26] MEDS: Nozin Nasal Sanitizer NASBOTH SCH ×2 (10:42→21:48)
[2025-03-26] MEDS ORDERED: Propofol 200 MG/20 ML SDV ONE ×2 (12:14→12:58)
[2025-03-26] MEDS ORDERED: fentaNYL 100 MCG/2 ML SDV ONE ×2 (12:15→14:31)
[2025-03-26] MEDS ORDERED: Midazolam 1 MG/ML 2 ML SDV ONE (12:15)
[2025-03-26] MEDS: ceFAZolin 2 GM in Premix Bag 1 BAG IV ONE (12:20)
[2025-03-26] MEDS: Tranexamic Acid 880 MG in Sodium Chloride 0.9% 50 ML IV ONE (12:30)
[2025-03-26] MEDS ORDERED: Lactated Ringers 1,000 ML ONE (12:51)
[2025-03-26] MEDS ORDERED: Rocuronium 50 MG/5 ML Vial ONE (12:59)
[2025-03-26] MEDS ORDERED: Neostigmine Methylsulfate 10 MG/10 ML MDV ONE (13:04)
[2025-03-26] MEDS ORDERED: Dexamethasone 4 MG/ML SDV ONE (13:04)
[2025-03-26] MEDS ORDERED: Glycopyrrolate 0.2 MG/ML 5 ML MDV ONE (13:04)
[2025-03-26] MEDS ORDERED: Ondansetron 4 MG/2 ML SDV ONE (13:04)
[2025-03-26] MEDS ORDERED: fentaNYL 250 MCG/5 ML SDV ONE (13:06)
[2025-03-26] MEDS: Bupivacaine 0.5% 50 ML MDV ONE (13:15)
[2025-03-26] MEDS ORDERED: Morphine 2 MG/ML SYRINGE IVPUSH PRN (14:43)
[2025-03-26] MEDS ORDERED: Magnesium Hydroxide 400 MG/5 ML Susp 30 ML Cup PO PRN (14:43)
[2025-03-26] MEDS ORDERED: Docusate Sodium 100 MG Cap PO PRN (14:43)
[2025-03-26] MEDS ORDERED: Ondansetron 4 MG/2 ML SDV IVPUSH PRN (14:43)
[2025-03-26] MEDS ORDERED: Nystatin Crm 15 GM Tube TOP PRN (14:45)
[2025-03-26] MEDS ORDERED: Fluconazole 150 MG Tab PO PRN (14:45)
[2025-03-26] MEDS ORDERED: Cetirizine 10 MG Tab PO PRN (15:02)
[2025-03-26] MEDS: oxyCODONE 5 MG Tab PO PRN ×2 (16:28→22:31)
[2025-03-26] MEDS: Acetaminophen 325 MG Tab PO SCH (16:29)
[2025-03-26] MEDS: Sodium Chloride 0.9% 1,000 ML IV SCH (19:53)
[2025-03-26] MEDS: ceFAZolin 2 GM in Premix Bag 1 BAG IV SCH (20:07)
[2025-03-26] MEDS: Ketorolac 15 MG/ML SDV IVPUSH PRN (20:22)
[2025-03-26] MEDS ORDERED: traZODone 50 MG Tab PO SCH (21:00)
[2025-03-26] MEDS: TRAZODONE 100 MG PO SCH (21:51)
[2025-03-26] MEDS: OXYBUTYNIN 5 MG PO SCH (21:51)
[2025-03-26] MEDS: MONTELUKAST 10 MG PO SCH (21:51)
[2025-03-27] MEDS ORDERED: Liothyronine 5 MCG Tab PO SCH (07:30)
[2025-03-27] MEDS: Alendronate 70 MG Tab PO SCH (07:50)
[2025-03-27] MEDS: MEDROXYPROGESTERONE 2.5 MG PO SCH (08:58)
[2025-03-27] MEDS ORDERED: Estradiol 0.5 MG Tab PO SCH (09:00)
[2025-03-27] MEDS: LIOTHYRONINE 25 MCG PO SCH (09:00)
[2025-03-27] MEDS ORDERED: Non-Formulary Medication 1 Each (Lutein/Minerals/Vit A,C & E [Ocuvite] 1 EACH Tablet) PO SCH (09:00)
[2025-03-27] MEDS: ROSUVASTATIN 10 MG PO SCH (09:00)
[2025-03-27] MEDS: ESTRADIOL 1 MG PO SCH (09:01)
[2025-03-27] MEDS: Calcium Carbonate/Vitamin D3 1500 MG-400 Units Tab PO SCH (09:01)
[2025-03-27] MEDS: Aspirin 325 MG Tab.EC PO SCH (09:02)
[2025-03-27] MEDS: Multivitamins with Iron/Calcium/Folic Acid/Minerals Tab PO SCH (09:02)
[2025-03-27] MEDS: Montelukast 10 MG Tab PO SCH (21:08)
[2025-03-27] MEDS: Oxybutynin 5 MG Tab PO SCH (21:08)
[2025-03-27] MEDS: traZODone 50 MG Tab PO SCH (21:10)
[2025-03-28] MEDS: Liothyronine 5 MCG Tab PO SCH (07:51)
[2025-03-28] MEDS: Rosuvastatin 10 MG Tab PO SCH (08:28)
[2025-03-28] MEDS: Estradiol 0.5 MG Tab PO SCH (08:29)
[2025-03-28 11:27] VITALS: BP 120/48; PULSE 60
== END 2025-03-28 15:51 | disposition home health service (06) | DRG 470 ==
LOC: JP.SDS 09:42 → JP.MS 14:43 → JP.SDS 03-27 11:59
PROVIDERS: ADMIT Specialist; ATTEND Specialist
PROC: 0SRC069 Replacement of Right Knee Joint with Oxidized Zirconium on Polyethylene Synthetic Substitute, Cemented, Open Approach (ICD-10-PCS; principal; 2025-03-26 10:45)
DX: M17.11 Unilateral primary osteoarthritis, right knee (principal); I10 Essential (primary) hypertension
CPT/HCPCS: 01402-QZ; 73560-26-RT; 73560-RT; 97110-GP; 97116-GP; 97161-GP; 97165-GO; A9270-GY; C1713; C1776; J0665; J0690; J1100; J1596; J1885; J2250; J2405; J2704; J2710; J3010; J3490; J7030; J7120

== ENCOUNTER 2025-06-27 12:08 | Emergency (ER) | payer MEDICARE, BC ==
[2025-06-27] MEDS ORDERED: Sodium Chloride 0.9% 10 ML Syringe FLUSH PRN (12:17)
[2025-06-27 12:37] VITALS: BP 174/68; PULSE 76
[2025-06-27 12:58] LABS: BASOPHILS ABSOLUTE AUTO 0.05 K/uL (0.00-0.10); BASOPHILS PERCENT AUTO 0.5 % (0.1-1.3); EOSINOPHILS ABSOLUTE AUTO 0.03 K/uL (0.00-0.40); EOSINOPHILS PERCENT AUTO 0.3 % (0.0-5.4); IMMATURE GRAN ABSOLUTE AUTO 0.03 K/uL (0.00-0.23); IMMATURE GRAN PERCENT AUTO 0.3 % (0.0-0.7); LYMPHOCYTES ABSOLUTE AUTO 1.17 K/uL (0.8-3.3); LYMPHOCYTES PERCENT AUTO 12.5 % (11.4-47.7); MONOCYTES ABSOLUTE AUTO 0.59 K/uL (0.20-0.90); MONOCYTES PERCENT AUTO 6.3 % (3.3-12.6); NEUTROPHILS ABSOLUTE AUTO 7.48 K/uL (1.0-7.6); NEUTROPHILS PERCENT AUTO 80.1 % (40.0-78.1); PLATELET COUNT,PLT 250 K/uL (130-375); RED BLOOD CELL COUNT 4.39 M/uL (3.77-5.24); WHITE BLOOD CELL COUNT,WBC 9.4 K/uL (3.2-11.0)
[2025-06-27 13:32] LABS: A/G RATIO 1.0 (1.2-2.2); ALANINE AMINOTRANSFERASE,ALT 24 U/L (12-78); ASPARTATE AMNIOTRANSFERASE,AST 20 U/L (15-37); BILIRUBIN TOTAL 0.4 mg/dL (0.2-1.0); BLOOD UREA NITROGEN,BUN 11 mg/dL (7-18); CARBON DIOXIDE,CO2 23 mmol/L (21-32); CHLORIDE,CL 103 mmol/L (100-108); CREATININE 0.9 mg/dL (0.6-1.0); EST CRCL DRUG DOSING (CG) 54.94 mL/min; ESTIMATED GFR 68 mL/min (>60); GLUCOSE RANDOM 115 mg/dL (74-106); POTASSIUM,K 3.8 mmol/L (3.6-5.2); PROTEIN TOTAL,TP 7.6 g/dL (6.4-8.2); SODIUM,NA 138 mmol/L (140-148)
== END 2025-06-27 14:55 | disposition home or self-care (01) ==
LOC: JP.ED 12:08
DX: R42 Dizziness and giddiness (principal); R00.1 Bradycardia, unspecified; Z86.16 Personal history of COVID-19; Z90.49 Acquired absence of other specified parts of digestive tract; Z88.2 Allergy status to sulfonamides; Z88.8 Allergy status to other drugs, medicaments and biological substances; Z79.82 Long term (current) use of aspirin; Z79.899 Other long term (current) drug therapy
CPT/HCPCS: 36415; 80053; 83735; 84443; 85025; 93005; 93246; 96360; 99284; J7030; 93010